=== PATIENT | female | born 1930 | race Caucasian/White ===

== ENCOUNTER 2017-07-30 09:24 | Inpatient (IN) | payer MEDICARE ==
[2017-07-30] MEDS: Furosemide 20 MG Tab PO SCH (15:18)
--- NOTE | 2017-07-30 16:37 | HP ---
ADMISSION DATE: 07/30/2017 REASON FOR VISIT: Right hip fracture, post-surgical repair, rehab. HISTORY OF PRESENT ILLNESS: Rosalia Koo is an 87-year-old, female, daughter in the room, resident of [place], [place], who was a transfer from [facility] in [place]. She sustained a right hip fracture in her home, 07/26/2017, fell in her home. She was transferred from [facility] to [facility]. On 07/27/2017, underwent a right hip nailing for an intertrochanteric fracture. Did well in the interim. Review of her records, discharge summary noted. Hemoglobin today prior to discharge 9.1, one day ago 7.1, two days ago 8.5. Pain only with activity. MEDICATIONS: Please see medication reconciliation list. ALLERGIES: Allergic to penicillin, amitriptyline, Cipro, latex, Lipitor, meclizine, and Zithromax. See attached list. PAST MEDICAL HISTORY: Significant for previous open cholecystectomy, vaginal hysterectomy, and most recent left hip fracture. No other operative procedures, hospitalizations, unusual childhood diseases, major injuries, or fractures. She has ongoing issues of aortic valve with stenosis, surgical intervention under consideration. History of hyperlipidemia, hypothyroidism, mood disorder, and memory issues evolving. SOCIAL HISTORY: 2 years ago at age 84. 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 Never smoked. Nil alcohol consumption. No illicit drug use. REVIEW OF SYSTEMS: Feeling generally well. Pain is problematic. Complicated dizziness secondary to aortic valve stenosis. She sees pretty well. Hearing - she has some difficulty with crowds. Swallowing without difficulty. Teeth intact. Denies chest pain, palpitations, respiratory difficulty, bowel or bladder impairment, blood in stool, blood in urine, or black stools. No skin rash. PHYSICAL EXAMINATION: VITAL SIGNS: Only vital signs available is height 1.6 meters stated, weight 95 kg, bed scale. GENERAL: Elderly, cooperative, conversant. Speech is fluent. HEENT: Funduscopic benign. Bright TMs. Clear nasal discharge. Mouth and oropharynx are clear. Tongue midline. Good gag reflex. NECK: Benign. Thyroid small. No adenopathy. CHEST: Clear in all lung steele. HEART: Regular without ectopy. Loud 3-4/6 systolic ejection murmur, aortic root. ABDOMEN: Right upper quadrant cholecystectomy scar is well healed, doing well. No hepatosplenomegaly. : Deferred. RECTAL: Deferred. EXTREMITIES: Well perfused. Mild venous stasis changes. Surgical site, right hip dressed. ASSESSMENT: Postop care, right hip pinning, intertrochanteric fracture. SECONDARY DIAGNOSES: Please see above. PLAN: Rehab in place, medications, care and treatment, PT, OT. Pain control. Cooperative care and well-being. We will recheck hemoglobin in a while, patient in agreement, daughter in agreement. /[id number] /BELLE CC: Arya Barrera MD
[2017-07-30] MEDS: Acetaminophen/HYDROcodone 325-5 MG Tab PO PRN (17:03)
[2017-07-30] MEDS: Fluticasone Propionate Nasal Spray 16 GM Bottle NAS SCH (21:26)
[2017-07-30] MEDS: Donepezil 5 MG Tab PO SCH (21:26)
[2017-07-30] MEDS: Melatonin 3 MG Tab PO SCH (21:27)
[2017-07-30] MEDS: Gabapentin 300 MG Cap PO SCH (21:27)
[2017-07-30] MEDS: Simvastatin 10 MG Tab PO SCH (21:28)
[2017-07-30] MEDS: Sertraline 50 MG Tab PO SCH (21:29)
[2017-07-31] MEDS: Acetaminophen/HYDROcodone 325-5 MG Tab PO PRN ×4 (00:38→20:21)
[2017-07-31] MEDS: Levothyroxine 112 MCG Tab PO SCH (06:20)
[2017-07-31] MEDS: Furosemide 20 MG Tab PO SCH ×2 (08:46→14:17)
[2017-07-31] MEDS: Fluticasone Propionate Nasal Spray 16 GM Bottle NAS SCH ×2 (08:51→20:18)
[2017-07-31] MEDS: Aspirin 81 MG Tab.EC PO SCH (08:52)
[2017-07-31] MEDS: Enoxaparin 40 MG/0.4 ML Syringe SUBCUT SCH (09:00)
[2017-07-31] MEDS: amLODIPine 5 MG Tab PO SCH (09:01)
[2017-07-31] MEDS: Gabapentin 300 MG Cap PO SCH ×2 (09:01→20:19)
[2017-07-31] MEDS: Lisinopril 20 MG Tab PO SCH (09:02)
[2017-07-31] MEDS: Cholecalciferol (Vitamin D3) 1,000 Unit Tab PO SCH (09:02)
[2017-07-31] MEDS: Multivitamins, Therapeutic with Minerals Tab PO SCH (09:04)
[2017-07-31] MEDS: Acetaminophen 325 MG Tab PO PRN ×2 (11:20→18:34)
[2017-07-31] MEDS: Donepezil 5 MG Tab PO SCH (20:18)
[2017-07-31] MEDS: Melatonin 3 MG Tab PO SCH (20:18)
[2017-07-31] MEDS: Sertraline 50 MG Tab PO SCH (20:20)
[2017-07-31] MEDS: Simvastatin 10 MG Tab PO SCH (20:20)
[2017-08-01] MEDS: Acetaminophen 325 MG Tab PO PRN ×3 (01:01→13:58)
[2017-08-01] MEDS: Levothyroxine 112 MCG Tab PO SCH (06:18)
[2017-08-01] MEDS: Acetaminophen/HYDROcodone 325-5 MG Tab PO PRN (06:18)
[2017-08-01] MEDS: Furosemide 20 MG Tab PO SCH ×2 (07:41→14:06)
[2017-08-01] MEDS: Fluticasone Propionate Nasal Spray 16 GM Bottle NAS SCH ×2 (08:43→20:27)
[2017-08-01] MEDS: Gabapentin 300 MG Cap PO SCH ×2 (08:44→20:28)
[2017-08-01] MEDS: Enoxaparin 40 MG/0.4 ML Syringe SUBCUT SCH (08:44)
[2017-08-01] MEDS: amLODIPine 5 MG Tab PO SCH (08:46)
[2017-08-01] MEDS: Lisinopril 20 MG Tab PO SCH (08:47)
[2017-08-01] MEDS: Cholecalciferol (Vitamin D3) 1,000 Unit Tab PO SCH (08:48)
[2017-08-01] MEDS: Multivitamins, Therapeutic with Minerals Tab PO SCH (08:48)
[2017-08-01] MEDS: Aspirin 81 MG Tab.EC PO SCH (10:56)
--- NOTE | 2017-08-01 12:02 | PN ---
DATE SEEN: 08/01/2017 SUBJECTIVE: Rosalia Koo is an 87-year-old female, in today for rehab. Sustained a right hip fracture on 07/29. Long-term rehab in place. Living situations comfortable with daughter. Pain does not appear to be controlled on her present dose of analgesics, [place] 325/5 one q.4 hours. OBJECTIVE: VITAL SIGNS: Stable. 36.6, 99/56, 16 is the respiration, 97% on 1 L. GENERAL: Soft spoken. Comfortable. NECK: Benign. Thyroid small. CHEST: Clear in all lung steele. HEART: Regular without ectopy or murmur. ABDOMEN: Benign. MUSCULOSKELETAL: Right hip surgical wound inspected without complaint. [place] in good position. Rehab care, status post right hip fracture. PLAN: Medications, care and treatment appropriate, continue present surveillance and care, hemoglobin will be obtained. /[id number] [id number] RUBY/BELLE
[2017-08-01] MEDS: Acetaminophen/HYDROcodone 325-10 MG Tab PO PRN ×3 (12:29→22:13)
[2017-08-01] MEDS: Simvastatin 10 MG Tab PO SCH (20:27)
[2017-08-01] MEDS: Sertraline 50 MG Tab PO SCH (20:27)
[2017-08-01] MEDS: Melatonin 3 MG Tab PO SCH (20:28)
[2017-08-01] MEDS: Donepezil 5 MG Tab PO SCH (20:28)
[2017-08-01] MEDS ORDERED: Aluminum Hydroxide/Magnesium Hydroxide Susp 30 ML Cup PO PRN (21:33)
[2017-08-02] MEDS: Levothyroxine 112 MCG Tab PO SCH (06:25)
[2017-08-02] MEDS: Acetaminophen/HYDROcodone 325-10 MG Tab PO PRN ×4 (08:08→21:26)
[2017-08-02] MEDS: Furosemide 20 MG Tab PO SCH ×2 (08:09→13:52)
[2017-08-02] MEDS: Fluticasone Propionate Nasal Spray 16 GM Bottle NAS SCH ×2 (08:09→20:37)
[2017-08-02] MEDS: Aspirin 81 MG Tab.EC PO SCH (08:10)
[2017-08-02] MEDS: Gabapentin 300 MG Cap PO SCH ×2 (08:10→20:40)
[2017-08-02] MEDS: Enoxaparin 40 MG/0.4 ML Syringe SUBCUT SCH (08:10)
[2017-08-02] MEDS: amLODIPine 5 MG Tab PO SCH (08:11)
[2017-08-02] MEDS: Cholecalciferol (Vitamin D3) 1,000 Unit Tab PO SCH (08:11)
[2017-08-02] MEDS: Lisinopril 20 MG Tab PO SCH (08:11)
[2017-08-02] MEDS: Multivitamins, Therapeutic with Minerals Tab PO SCH (08:11)
--- NOTE | 2017-08-02 11:56 | PN ---
DATE SEEN: 08/02/2017 SUBJECTIVE: Rosalia Koo is an 87-year-old female, , lives in [place], [place]. Lives with her daughter. Had a recent right hip fracture on 07/29, admitted to swing bed. Pain is controlled with [place], PT to be actively involved today. PHYSICAL EXAMINATION: VITAL SIGNS: 36.6, 78, 113/66, 18, and 95. GENERAL: In good spirits. NECK: Benign. Thyroid small. CHEST: Clear. HEART: Regular. ABDOMEN: Benign. EXTREMITIES: Surgical wound intact. ASSESSMENT: Right hip fracture with surgical repair. PLAN: Medications, care, and treatment appropriate. We will continue present care and therapy. /[id number] RUBY/BELLE
[2017-08-02] MEDS: Donepezil 5 MG Tab PO SCH (20:39)
[2017-08-02] MEDS: Melatonin 3 MG Tab PO SCH (20:40)
[2017-08-02] MEDS: Sertraline 50 MG Tab PO SCH (20:41)
[2017-08-02] MEDS: Simvastatin 10 MG Tab PO SCH (20:41)
[2017-08-03] MEDS: Acetaminophen/HYDROcodone 325-10 MG Tab PO PRN ×3 (01:37→22:56)
--- NOTE | 2017-08-03 09:32 | PN ---
DATE SEEN: 07/31/2017 SUBJECTIVE: Rosalia Koo is an 87-year-old female, seen today for review. She had sustained a right hip fracture and was admitted [facility] for rehab. Hemoglobin the day before discharge was 9.2. MEDICATIONS: Reviewed and appropriate. OBJECTIVE: VITAL SIGNS: Temperature 36.7, pulse 77, blood pressure 115/72, respirations 16, O2 saturations 99% on 2 L. GENERAL: Appears comfortable. Soft spoken. NECK: Benign. CHEST: Clear. HEART: Regular. ABDOMEN: Benign. Fracture site intact and wound healing well. ASSESSMENT: Rehab post right hip fracture. PLAN: Medications, care, and treatment appropriate. Analgesics on board. PT involved. /[id number] [id number] RUBY/BELLE
--- NOTE | 2017-08-03 15:40 | PN ---
DATE SEEN: 08/03/2017 SUBJECTIVE: Rosalia Koo is an 87-year-old female, in swing bed. She had a fracture of her right hip. Doing well. Hemoglobin 9.2, recheck 9.8. Pain control better with hydrocodone at 4 hour intervals. OBJECTIVE: CHEST: Clear. HEART: Regular. ABDOMEN: Benign. Wound looks good. ASSESSMENT: Postoperative care, right hip fracture, rehab. PLAN: Medications, care, and treatment appropriate, proceed accordingly. /[id number] [id number] /BELLE
[2017-08-03] MEDS: Levothyroxine 112 MCG Tab PO SCH (18:54)
[2017-08-03] MEDS: Furosemide 20 MG Tab PO SCH (18:54)
[2017-08-03] MEDS: Fluticasone Propionate Nasal Spray 16 GM Bottle NAS SCH ×2 (18:55→20:19)
[2017-08-03] MEDS: Gabapentin 300 MG Cap PO SCH ×2 (18:56→20:18)
[2017-08-03] MEDS: Enoxaparin 40 MG/0.4 ML Syringe SUBCUT SCH (18:56)
[2017-08-03] MEDS: amLODIPine 5 MG Tab PO SCH (18:56)
[2017-08-03] MEDS: Aspirin 81 MG Tab.EC PO SCH (18:56)
[2017-08-03] MEDS: Multivitamins, Therapeutic with Minerals Tab PO SCH (18:57)
[2017-08-03] MEDS: Cholecalciferol (Vitamin D3) 1,000 Unit Tab PO SCH (18:57)
[2017-08-03] MEDS: Lisinopril 20 MG Tab PO SCH (18:57)
[2017-08-03] MEDS: Simvastatin 10 MG Tab PO SCH (20:18)
[2017-08-03] MEDS: Donepezil 5 MG Tab PO SCH (20:18)
[2017-08-03] MEDS: Melatonin 3 MG Tab PO SCH (20:18)
[2017-08-03] MEDS: Sertraline 50 MG Tab PO SCH (20:18)
[2017-08-04] MEDS: Levothyroxine 112 MCG Tab PO SCH (06:02)
[2017-08-04] MEDS: Acetaminophen/HYDROcodone 325-10 MG Tab PO PRN ×3 (08:10→19:34)
[2017-08-04] MEDS: Fluticasone Propionate Nasal Spray 16 GM Bottle NAS SCH ×2 (08:14→20:31)
[2017-08-04] MEDS: Furosemide 20 MG Tab PO SCH ×2 (08:14→13:48)
[2017-08-04] MEDS: Aspirin 81 MG Tab.EC PO SCH (08:15)
[2017-08-04] MEDS: Gabapentin 300 MG Cap PO SCH ×2 (08:15→20:33)
[2017-08-04] MEDS: Enoxaparin 40 MG/0.4 ML Syringe SUBCUT SCH (08:15)
[2017-08-04] MEDS: Lisinopril 20 MG Tab PO SCH (08:15)
[2017-08-04] MEDS: amLODIPine 5 MG Tab PO SCH (08:15)
[2017-08-04] MEDS: Cholecalciferol (Vitamin D3) 1,000 Unit Tab PO SCH (08:16)
[2017-08-04] MEDS: Multivitamins, Therapeutic with Minerals Tab PO SCH (08:16)
--- NOTE | 2017-08-04 16:05 | PN ---
DATE SEEN: 08/04/2017 SUBJECTIVE: Rosalia Koo is an 87-year-old female seen today for review. She had a right hip fracture, 07/29/2017. Hemoglobin stable at 9.2 and discharge 9.8. Analgesics working with good success. OBJECTIVE: VITAL SIGNS: Stable. CHEST: Clear. HEART: Regular. ABDOMEN: Benign. MUSCULOSKELETAL: Right hip surgical wound intact. ASSESSMENT: Rehab, hip fracture. PLAN: Medications, care, and treatment appropriate, analgesics on board, should do well. PT ongoing. /[id number] [id number] RUBY/BELLE
[2017-08-04] MEDS: Sertraline 50 MG Tab PO SCH (20:33)
[2017-08-04] MEDS: Simvastatin 10 MG Tab PO SCH (20:33)
[2017-08-04] MEDS: Melatonin 3 MG Tab PO SCH (20:33)
[2017-08-04] MEDS: Donepezil 5 MG Tab PO SCH (20:33)
[2017-08-05] MEDS: Levothyroxine 112 MCG Tab PO SCH (05:40)
[2017-08-05] MEDS: Acetaminophen/HYDROcodone 325-10 MG Tab PO PRN ×2 (08:11→14:13)
[2017-08-05] MEDS: Furosemide 20 MG Tab PO SCH ×2 (08:14→13:02)
[2017-08-05] MEDS: Fluticasone Propionate Nasal Spray 16 GM Bottle NAS SCH ×2 (08:14→20:06)
[2017-08-05] MEDS: Aspirin 81 MG Tab.EC PO SCH (08:14)
[2017-08-05] MEDS: amLODIPine 5 MG Tab PO SCH (08:15)
[2017-08-05] MEDS: Gabapentin 300 MG Cap PO SCH ×2 (08:15→20:07)
[2017-08-05] MEDS: Enoxaparin 40 MG/0.4 ML Syringe SUBCUT SCH (08:15)
[2017-08-05] MEDS: Lisinopril 20 MG Tab PO SCH (08:15)
[2017-08-05] MEDS: Cholecalciferol (Vitamin D3) 1,000 Unit Tab PO SCH (08:16)
[2017-08-05] MEDS: Multivitamins, Therapeutic with Minerals Tab PO SCH (08:16)
[2017-08-05] MEDS: Acetaminophen 325 MG Tab PO PRN (10:44)
[2017-08-05] MEDS: Hydrocortisone 2.5% Crm 30 GM Tube TOP SCH ×2 (10:46→20:06)
--- NOTE | 2017-08-05 10:59 | PN ---
DATE SEEN: 08/05/2017 SUBJECTIVE: Rosalia Koo is an 87-year-old female. Right hip fracture, surgical date 07/29. Hemoglobin stable at 9.2 and 9.8. Pain appears to be controlled. Therapy is going slowly. Has a rash on her upper back. OBJECTIVE: SKIN: Revealed a contact dermatitis on back. CHEST: Clear. HEART: Regular. ABDOMEN: Benign. MUSCULOSKELETAL: Surgical wound, right hip intact. ASSESSMENT: 1. Hip fracture with surgical intervention, rehab in place. 2. Contact dermatitis. PLAN: Hydrocortisone cream b.i.d. t.i.d. Complementary care and well being. Should do well. /[id number] 1040 RUBY/BELLE
[2017-08-05] MEDS: Donepezil 5 MG Tab PO SCH (20:06)
[2017-08-05] MEDS: Melatonin 3 MG Tab PO SCH (20:07)
[2017-08-05] MEDS: Simvastatin 10 MG Tab PO SCH (20:08)
[2017-08-05] MEDS: Sertraline 50 MG Tab PO SCH (20:08)
[2017-08-06] MEDS: Levothyroxine 112 MCG Tab PO SCH (05:52)
[2017-08-06] MEDS: Furosemide 20 MG Tab PO SCH ×2 (08:57→13:33)
[2017-08-06] MEDS: Aspirin 81 MG Tab.EC PO SCH (08:58)
[2017-08-06] MEDS: Fluticasone Propionate Nasal Spray 16 GM Bottle NAS SCH ×2 (08:58→20:05)
[2017-08-06] MEDS: Gabapentin 300 MG Cap PO SCH ×2 (08:59→20:07)
[2017-08-06] MEDS: Enoxaparin 40 MG/0.4 ML Syringe SUBCUT SCH (08:59)
[2017-08-06] MEDS: amLODIPine 5 MG Tab PO SCH (09:00)
[2017-08-06] MEDS: Multivitamins, Therapeutic with Minerals Tab PO SCH (09:01)
[2017-08-06] MEDS: Lisinopril 20 MG Tab PO SCH (09:01)
[2017-08-06] MEDS: Cholecalciferol (Vitamin D3) 1,000 Unit Tab PO SCH (09:01)
[2017-08-06] MEDS: Hydrocortisone 2.5% Crm 30 GM Tube TOP SCH ×2 (09:02→20:06)
[2017-08-06] MEDS: Acetaminophen 325 MG Tab PO PRN (09:55)
[2017-08-06] MEDS: Acetaminophen/HYDROcodone 325-10 MG Tab PO PRN ×2 (15:37→19:52)
[2017-08-06] MEDS: Donepezil 5 MG Tab PO SCH (20:04)
[2017-08-06] MEDS: Melatonin 3 MG Tab PO SCH (20:07)
[2017-08-06] MEDS: Simvastatin 10 MG Tab PO SCH (20:08)
[2017-08-06] MEDS: Sertraline 50 MG Tab PO SCH (20:08)
[2017-08-07] MEDS: Acetaminophen/HYDROcodone 325-10 MG Tab PO PRN ×6 (01:35→21:56)
[2017-08-07] MEDS: Levothyroxine 112 MCG Tab PO SCH (05:39)
[2017-08-07] MEDS: Fluticasone Propionate Nasal Spray 16 GM Bottle NAS SCH ×2 (08:39→21:58)
[2017-08-07] MEDS: Gabapentin 300 MG Cap PO SCH ×2 (08:40→22:00)
[2017-08-07] MEDS: Multivitamins, Therapeutic with Minerals Tab PO SCH (08:40)
[2017-08-07] MEDS: Lisinopril 20 MG Tab PO SCH (08:40)
[2017-08-07] MEDS: Cholecalciferol (Vitamin D3) 1,000 Unit Tab PO SCH (08:40)
[2017-08-07] MEDS: Aspirin 81 MG Tab.EC PO SCH (08:40)
[2017-08-07] MEDS: amLODIPine 5 MG Tab PO SCH (08:41)
[2017-08-07] MEDS: Furosemide 20 MG Tab PO SCH ×2 (08:41→13:28)
[2017-08-07] MEDS: Enoxaparin 40 MG/0.4 ML Syringe SUBCUT SCH (08:41)
[2017-08-07] MEDS: Hydrocortisone 2.5% Crm 30 GM Tube TOP SCH ×2 (08:41→21:53)
[2017-08-07] MEDS: Acetaminophen 325 MG Tab PO PRN (20:00)
[2017-08-07] MEDS: Donepezil 5 MG Tab PO SCH (21:58)
[2017-08-07] MEDS: Melatonin 3 MG Tab PO SCH (21:59)
[2017-08-07] MEDS: Simvastatin 10 MG Tab PO SCH (22:01)
[2017-08-07] MEDS: Sertraline 50 MG Tab PO SCH (22:03)
[2017-08-08] MEDS: Acetaminophen/HYDROcodone 325-10 MG Tab PO PRN ×3 (01:51→18:19)
[2017-08-08] MEDS: Levothyroxine 112 MCG Tab PO SCH (06:14)
[2017-08-08] MEDS: Fluticasone Propionate Nasal Spray 16 GM Bottle NAS SCH ×2 (08:50→20:46)
[2017-08-08] MEDS: Aspirin 81 MG Tab.EC PO SCH (08:50)
[2017-08-08] MEDS: Furosemide 20 MG Tab PO SCH ×2 (08:50→14:10)
[2017-08-08] MEDS: Hydrocortisone 2.5% Crm 30 GM Tube TOP SCH ×2 (08:50→20:47)
[2017-08-08] MEDS: Enoxaparin 40 MG/0.4 ML Syringe SUBCUT SCH (08:51)
[2017-08-08] MEDS: Gabapentin 300 MG Cap PO SCH ×2 (08:51→20:48)
[2017-08-08] MEDS: Cholecalciferol (Vitamin D3) 1,000 Unit Tab PO SCH (08:52)
[2017-08-08] MEDS: Multivitamins, Therapeutic with Minerals Tab PO SCH (08:52)
[2017-08-08] MEDS: amLODIPine 5 MG Tab PO SCH (14:09)
[2017-08-08] MEDS: Lisinopril 20 MG Tab PO SCH (14:10)
[2017-08-08] MEDS: Donepezil 5 MG Tab PO SCH (20:46)
[2017-08-08] MEDS: Melatonin 3 MG Tab PO SCH (20:47)
[2017-08-08] MEDS: Simvastatin 10 MG Tab PO SCH (20:49)
[2017-08-08] MEDS: Sertraline 50 MG Tab PO SCH (20:49)
[2017-08-09] MEDS: Acetaminophen/HYDROcodone 325-10 MG Tab PO PRN ×5 (00:26→20:28)
[2017-08-09] MEDS: Levothyroxine 112 MCG Tab PO SCH (05:40)
[2017-08-09] MEDS: Gabapentin 300 MG Cap PO SCH ×2 (09:08→20:30)
[2017-08-09] MEDS: Furosemide 20 MG Tab PO SCH ×2 (09:08→14:43)
[2017-08-09] MEDS: Cholecalciferol (Vitamin D3) 1,000 Unit Tab PO SCH (09:08)
[2017-08-09] MEDS: Fluticasone Propionate Nasal Spray 16 GM Bottle NAS SCH ×2 (09:08→20:26)
[2017-08-09] MEDS: Aspirin 81 MG Tab.EC PO SCH (09:09)
[2017-08-09] MEDS: Enoxaparin 40 MG/0.4 ML Syringe SUBCUT SCH (09:09)
[2017-08-09] MEDS: Hydrocortisone 2.5% Crm 30 GM Tube TOP SCH ×2 (09:09→20:27)
[2017-08-09] MEDS: amLODIPine 5 MG Tab PO SCH (09:10)
[2017-08-09] MEDS: Acetaminophen 325 MG Tab PO PRN (09:10)
[2017-08-09] MEDS: Lisinopril 20 MG Tab PO SCH (09:10)
[2017-08-09] MEDS: Multivitamins, Therapeutic with Minerals Tab PO SCH (09:11)
[2017-08-09] MEDS: Sertraline 50 MG Tab PO SCH (20:29)
[2017-08-09] MEDS: Donepezil 5 MG Tab PO SCH (20:30)
[2017-08-09] MEDS: Melatonin 3 MG Tab PO SCH (20:30)
[2017-08-09] MEDS: Simvastatin 10 MG Tab PO SCH (20:32)
[2017-08-10] MEDS: Acetaminophen/HYDROcodone 325-10 MG Tab PO PRN ×5 (01:38→20:49)
[2017-08-10] MEDS: Levothyroxine 112 MCG Tab PO SCH (05:28)
[2017-08-10] MEDS: Fluticasone Propionate Nasal Spray 16 GM Bottle NAS SCH ×2 (09:25→20:40)
[2017-08-10] MEDS: Furosemide 20 MG Tab PO SCH ×2 (09:25→13:40)
[2017-08-10] MEDS: Aspirin 81 MG Tab.EC PO SCH (09:26)
[2017-08-10] MEDS: Hydrocortisone 2.5% Crm 30 GM Tube TOP SCH ×2 (09:26→20:46)
[2017-08-10] MEDS: Gabapentin 300 MG Cap PO SCH ×2 (09:27→20:47)
[2017-08-10] MEDS: Enoxaparin 40 MG/0.4 ML Syringe SUBCUT SCH (09:27)
[2017-08-10] MEDS: amLODIPine 5 MG Tab PO SCH (09:27)
[2017-08-10] MEDS: Cholecalciferol (Vitamin D3) 1,000 Unit Tab PO SCH (09:28)
[2017-08-10] MEDS: Lisinopril 20 MG Tab PO SCH (09:28)
[2017-08-10] MEDS: Multivitamins, Therapeutic with Minerals Tab PO SCH (09:28)
[2017-08-10] MEDS: Donepezil 5 MG Tab PO SCH (20:39)
[2017-08-10] MEDS: Melatonin 3 MG Tab PO SCH (20:47)
[2017-08-10] MEDS: Sertraline 50 MG Tab PO SCH (20:48)
[2017-08-10] MEDS: Simvastatin 10 MG Tab PO SCH (20:48)
[2017-08-11] MEDS: Acetaminophen/HYDROcodone 325-10 MG Tab PO PRN ×4 (01:47→21:15)
[2017-08-11] MEDS: Levothyroxine 112 MCG Tab PO SCH (05:56)
[2017-08-11] MEDS: amLODIPine 5 MG Tab PO SCH (09:00)
[2017-08-11] MEDS: Lisinopril 20 MG Tab PO SCH (09:00)
[2017-08-11] MEDS: Hydrocortisone 2.5% Crm 30 GM Tube TOP SCH (09:59)
[2017-08-11] MEDS: Furosemide 20 MG Tab PO SCH ×2 (09:59→14:03)
[2017-08-11] MEDS: Aspirin 81 MG Tab.EC PO SCH (09:59)
[2017-08-11] MEDS: Fluticasone Propionate Nasal Spray 16 GM Bottle NAS SCH ×2 (09:59→21:16)
[2017-08-11] MEDS: Enoxaparin 40 MG/0.4 ML Syringe SUBCUT SCH (10:00)
[2017-08-11] MEDS: Gabapentin 300 MG Cap PO SCH ×2 (10:00→21:15)
[2017-08-11] MEDS: Cholecalciferol (Vitamin D3) 1,000 Unit Tab PO SCH (10:00)
[2017-08-11] MEDS: Multivitamins, Therapeutic with Minerals Tab PO SCH (10:00)
[2017-08-11] MEDS: Sertraline 50 MG Tab PO SCH (21:15)
[2017-08-11] MEDS: Donepezil 5 MG Tab PO SCH (21:15)
[2017-08-11] MEDS: Melatonin 3 MG Tab PO SCH (21:15)
[2017-08-11] MEDS: Simvastatin 10 MG Tab PO SCH (21:15)
[2017-08-12] MEDS: Levothyroxine 112 MCG Tab PO SCH (05:33)
[2017-08-12] MEDS: Fluticasone Propionate Nasal Spray 16 GM Bottle NAS SCH ×2 (08:13→21:25)
[2017-08-12] MEDS: Furosemide 20 MG Tab PO SCH ×2 (08:13→14:34)
[2017-08-12] MEDS: Aspirin 81 MG Tab.EC PO SCH (08:14)
[2017-08-12] MEDS: Enoxaparin 40 MG/0.4 ML Syringe SUBCUT SCH (08:14)
[2017-08-12] MEDS: Gabapentin 300 MG Cap PO SCH ×2 (08:15→21:25)
[2017-08-12] MEDS: Cholecalciferol (Vitamin D3) 1,000 Unit Tab PO SCH (08:15)
[2017-08-12] MEDS: Multivitamins, Therapeutic with Minerals Tab PO SCH (08:16)
[2017-08-12] MEDS: Acetaminophen 325 MG Tab PO PRN ×2 (08:39→21:30)
[2017-08-12] MEDS: amLODIPine 5 MG Tab PO SCH (08:39)
[2017-08-12] MEDS: Acetaminophen/HYDROcodone 325-10 MG Tab PO PRN ×2 (11:35→19:03)
[2017-08-12] MEDS: Donepezil 5 MG Tab PO SCH (21:25)
[2017-08-12] MEDS: Melatonin 3 MG Tab PO SCH (21:25)
[2017-08-12] MEDS: Simvastatin 10 MG Tab PO SCH (21:25)
[2017-08-12] MEDS: Sertraline 50 MG Tab PO SCH (21:25)
[2017-08-13] MEDS: Acetaminophen/HYDROcodone 325-10 MG Tab PO PRN ×3 (03:10→13:56)
[2017-08-13] MEDS: Levothyroxine 112 MCG Tab PO SCH (06:58)
[2017-08-13] MEDS: Fluticasone Propionate Nasal Spray 16 GM Bottle NAS SCH ×2 (09:18→21:07)
[2017-08-13] MEDS: Aspirin 81 MG Tab.EC PO SCH (09:18)
[2017-08-13] MEDS: Enoxaparin 40 MG/0.4 ML Syringe SUBCUT SCH (09:18)
[2017-08-13] MEDS: Furosemide 20 MG Tab PO SCH ×2 (09:18→13:56)
[2017-08-13] MEDS: amLODIPine 5 MG Tab PO SCH (09:19)
[2017-08-13] MEDS: Multivitamins, Therapeutic with Minerals Tab PO SCH (09:19)
[2017-08-13] MEDS: Gabapentin 300 MG Cap PO SCH ×2 (09:19→21:07)
[2017-08-13] MEDS: Cholecalciferol (Vitamin D3) 1,000 Unit Tab PO SCH (09:19)
[2017-08-13] MEDS: Acetaminophen 325 MG Tab PO PRN (16:57)
[2017-08-13] MEDS: Simvastatin 10 MG Tab PO SCH (21:07)
[2017-08-13] MEDS: Donepezil 5 MG Tab PO SCH (21:07)
[2017-08-13] MEDS: Melatonin 3 MG Tab PO SCH (21:07)
[2017-08-13] MEDS: Sertraline 50 MG Tab PO SCH (21:08)
[2017-08-14] MEDS: Acetaminophen/HYDROcodone 325-10 MG Tab PO PRN ×4 (00:29→20:20)
[2017-08-14] MEDS: Levothyroxine 112 MCG Tab PO SCH (06:16)
[2017-08-14] MEDS: Furosemide 20 MG Tab PO SCH ×2 (09:12→12:59)
[2017-08-14] MEDS: Fluticasone Propionate Nasal Spray 16 GM Bottle NAS SCH ×2 (09:12→20:19)
[2017-08-14] MEDS: Enoxaparin 40 MG/0.4 ML Syringe SUBCUT SCH (09:13)
[2017-08-14] MEDS: Cholecalciferol (Vitamin D3) 1,000 Unit Tab PO SCH (09:13)
[2017-08-14] MEDS: amLODIPine 5 MG Tab PO SCH (09:13)
[2017-08-14] MEDS: Aspirin 81 MG Tab.EC PO SCH (09:13)
[2017-08-14] MEDS: Gabapentin 300 MG Cap PO SCH ×2 (09:13→20:19)
[2017-08-14] MEDS: Multivitamins, Therapeutic with Minerals Tab PO SCH (09:13)
[2017-08-14] MEDS: Acetaminophen 325 MG Tab PO PRN (12:56)
[2017-08-14] MEDS: Melatonin 3 MG Tab PO SCH (20:19)
[2017-08-14] MEDS: Donepezil 5 MG Tab PO SCH (20:19)
[2017-08-14] MEDS: Simvastatin 10 MG Tab PO SCH (20:20)
[2017-08-14] MEDS: Sertraline 50 MG Tab PO SCH (20:20)
[2017-08-15] MEDS ORDERED: diphenhydrAMINE 50 MG Cap PO ONE (01:45)
[2017-08-15] MEDS: Levothyroxine 112 MCG Tab PO SCH (06:04)
[2017-08-15] MEDS: Acetaminophen/HYDROcodone 325-10 MG Tab PO PRN ×2 (08:19→13:45)
[2017-08-15] MEDS: Multivitamins, Therapeutic with Minerals Tab PO SCH (08:20)
[2017-08-15] MEDS: Furosemide 20 MG Tab PO SCH ×2 (08:20→13:42)
[2017-08-15] MEDS: Aspirin 81 MG Tab.EC PO SCH (08:21)
[2017-08-15] MEDS: Fluticasone Propionate Nasal Spray 16 GM Bottle NAS SCH ×2 (08:21→20:18)
[2017-08-15] MEDS: Enoxaparin 40 MG/0.4 ML Syringe SUBCUT SCH (08:21)
[2017-08-15] MEDS: amLODIPine 5 MG Tab PO SCH (08:22)
[2017-08-15] MEDS: Gabapentin 300 MG Cap PO SCH ×2 (08:22→20:19)
[2017-08-15] MEDS: Cholecalciferol (Vitamin D3) 1,000 Unit Tab PO SCH (08:23)
[2017-08-15] MEDS: Donepezil 5 MG Tab PO SCH (20:18)
[2017-08-15] MEDS: Melatonin 3 MG Tab PO SCH (20:18)
[2017-08-15] MEDS: Sertraline 50 MG Tab PO SCH (20:19)
[2017-08-15] MEDS: Simvastatin 10 MG Tab PO SCH (20:19)
[2017-08-16] MEDS: Levothyroxine 112 MCG Tab PO SCH (05:51)
[2017-08-16] MEDS: Fluticasone Propionate Nasal Spray 16 GM Bottle NAS SCH ×2 (08:48→20:12)
[2017-08-16] MEDS: Furosemide 20 MG Tab PO SCH ×2 (08:48→13:37)
[2017-08-16] MEDS: Enoxaparin 40 MG/0.4 ML Syringe SUBCUT SCH (08:49)
[2017-08-16] MEDS: Aspirin 81 MG Tab.EC PO SCH (08:49)
[2017-08-16] MEDS: Gabapentin 300 MG Cap PO SCH ×2 (08:50→20:13)
[2017-08-16] MEDS: Cholecalciferol (Vitamin D3) 1,000 Unit Tab PO SCH (08:51)
[2017-08-16] MEDS: Multivitamins, Therapeutic with Minerals Tab PO SCH (08:51)
[2017-08-16] MEDS: amLODIPine 5 MG Tab PO SCH (08:52)
[2017-08-16] MEDS: Acetaminophen/HYDROcodone 325-10 MG Tab PO PRN ×2 (10:11→19:35)
[2017-08-16] MEDS: Donepezil 5 MG Tab PO SCH (20:12)
[2017-08-16] MEDS: Melatonin 3 MG Tab PO SCH (20:13)
[2017-08-16] MEDS: Simvastatin 10 MG Tab PO SCH (20:14)
[2017-08-16] MEDS: Sertraline 50 MG Tab PO SCH (20:14)
[2017-08-17] MEDS: Acetaminophen/HYDROcodone 325-10 MG Tab PO PRN ×4 (01:46→21:05)
[2017-08-17] MEDS: Levothyroxine 112 MCG Tab PO SCH (06:28)
[2017-08-17] MEDS: Enoxaparin 40 MG/0.4 ML Syringe SUBCUT SCH (08:40)
[2017-08-17] MEDS: Fluticasone Propionate Nasal Spray 16 GM Bottle NAS SCH ×2 (08:42→21:03)
[2017-08-17] MEDS: Furosemide 20 MG Tab PO SCH ×2 (08:42→14:21)
[2017-08-17] MEDS: Gabapentin 300 MG Cap PO SCH ×2 (08:43→21:03)
[2017-08-17] MEDS: Aspirin 81 MG Tab.EC PO SCH (08:43)
[2017-08-17] MEDS: Multivitamins, Therapeutic with Minerals Tab PO SCH (08:44)
[2017-08-17] MEDS: Cholecalciferol (Vitamin D3) 1,000 Unit Tab PO SCH (08:44)
[2017-08-17] MEDS: amLODIPine 5 MG Tab PO SCH (08:45)
[2017-08-17] MEDS: Acetaminophen 325 MG Tab PO PRN (15:48)
[2017-08-17] MEDS: Donepezil 5 MG Tab PO SCH (21:03)
[2017-08-17] MEDS: Melatonin 3 MG Tab PO SCH (21:03)
[2017-08-17] MEDS: Simvastatin 10 MG Tab PO SCH (21:04)
[2017-08-17] MEDS: Sertraline 50 MG Tab PO SCH (21:04)
[2017-08-18] MEDS: Acetaminophen/HYDROcodone 325-10 MG Tab PO PRN ×5 (01:41→22:13)
[2017-08-18] MEDS: Levothyroxine 112 MCG Tab PO SCH (05:47)
[2017-08-18] MEDS: Enoxaparin 40 MG/0.4 ML Syringe SUBCUT SCH (08:19)
[2017-08-18] MEDS: Gabapentin 300 MG Cap PO SCH ×2 (08:19→22:10)
[2017-08-18] MEDS: Multivitamins, Therapeutic with Minerals Tab PO SCH (08:19)
[2017-08-18] MEDS: amLODIPine 5 MG Tab PO SCH (08:19)
[2017-08-18] MEDS: Furosemide 20 MG Tab PO SCH ×2 (08:19→13:38)
[2017-08-18] MEDS: Cholecalciferol (Vitamin D3) 1,000 Unit Tab PO SCH (08:19)
[2017-08-18] MEDS: Aspirin 81 MG Tab.EC PO SCH (08:19)
[2017-08-18] MEDS: Acetaminophen 325 MG Tab PO PRN (08:20)
[2017-08-18] MEDS: Fluticasone Propionate Nasal Spray 16 GM Bottle NAS SCH ×2 (08:21→22:10)
[2017-08-18] MEDS: Melatonin 3 MG Tab PO SCH (22:10)
[2017-08-18] MEDS: Donepezil 5 MG Tab PO SCH (22:10)
[2017-08-18] MEDS: Simvastatin 10 MG Tab PO SCH (22:10)
[2017-08-18] MEDS: Sertraline 50 MG Tab PO SCH (22:11)
[2017-08-19] MEDS: Acetaminophen 325 MG Tab PO PRN (01:24)
[2017-08-19] MEDS: Levothyroxine 112 MCG Tab PO SCH (05:54)
[2017-08-19] MEDS: Acetaminophen/HYDROcodone 325-10 MG Tab PO PRN ×3 (05:54→17:13)
[2017-08-19] MEDS: Furosemide 20 MG Tab PO SCH ×2 (08:19→15:02)
[2017-08-19] MEDS: Gabapentin 300 MG Cap PO SCH ×2 (08:20→21:01)
[2017-08-19] MEDS: Fluticasone Propionate Nasal Spray 16 GM Bottle NAS SCH ×2 (08:20→20:59)
[2017-08-19] MEDS: Aspirin 81 MG Tab.EC PO SCH (08:20)
[2017-08-19] MEDS: amLODIPine 5 MG Tab PO SCH (08:20)
[2017-08-19] MEDS: Enoxaparin 40 MG/0.4 ML Syringe SUBCUT SCH (08:20)
[2017-08-19] MEDS: Cholecalciferol (Vitamin D3) 1,000 Unit Tab PO SCH (08:21)
[2017-08-19] MEDS: Multivitamins, Therapeutic with Minerals Tab PO SCH (08:22)
[2017-08-19] MEDS: Simvastatin 10 MG Tab PO SCH (21:01)
[2017-08-19] MEDS: Melatonin 3 MG Tab PO SCH (21:01)
[2017-08-19] MEDS: Donepezil 5 MG Tab PO SCH (21:02)
[2017-08-19] MEDS: Sertraline 50 MG Tab PO SCH (21:02)
[2017-08-20] MEDS: Levothyroxine 112 MCG Tab PO SCH (05:16)
[2017-08-20] MEDS: Fluticasone Propionate Nasal Spray 16 GM Bottle NAS SCH (08:03)
[2017-08-20] MEDS: Furosemide 20 MG Tab PO SCH (08:03)
[2017-08-20] MEDS: Aspirin 81 MG Tab.EC PO SCH (08:03)
[2017-08-20] MEDS: Gabapentin 300 MG Cap PO SCH (08:04)
[2017-08-20] MEDS: Enoxaparin 40 MG/0.4 ML Syringe SUBCUT SCH (08:04)
[2017-08-20] MEDS: Cholecalciferol (Vitamin D3) 1,000 Unit Tab PO SCH (08:05)
[2017-08-20] MEDS: amLODIPine 5 MG Tab PO SCH (08:08)
[2017-08-20 08:09] VITALS: BP 117/69
[2017-08-20] MEDS: Multivitamins, Therapeutic with Minerals Tab PO SCH (08:09)
--- NOTE | 2017-08-20 12:08 | PCM.DCSUM1 ---
Discharge Summary - Hospital Course HPI Initial Comments: 87 y female admitted to swing bed for right hip fracture s/p repair 07/29/2017. required pt/ot for strengthening, rom, and adls. - Discharge Data Discharge Date: 08/20/17 Discharge Disposition: Home, Self-Care 01 Condition: Good - Discharge Diagnosis/Problem(s) (1) S/P right hip fracture SNOMED Code(s): 055802825 ICD Code: Z87.81 - PERSONAL HISTORY OF (HEALED) TRAUMATIC FRACTURE Status: Acute (2) Closed fracture of right hip requiring operative repair SNOMED Code(s): 249907105 ICD Code: S72.001A - FRACTURE OF UNSP PART OF NECK OF RIGHT FEMUR, INIT Status: Acute Qualifiers: Fracture healing: with routine healing - Patient Summary/Data Consults: Consultations 07/30/17 14:06 OT Evaluation and Treatment [CONS] Routine Please Evaluate and Treat. OT Reason for Consult: ADL's This query below is only for informational purposes and is not editable. Admission Diagnosis/Problem: Hip fracture requiring operative repair PT Evaluation and Treatment [CONS] Routine Please Evaluate and Treat. PT Reason for Consult: Strengthening This query below is only for informational purposes and is not editable. Admission Diagnosis/Problem: Hip fracture requiring operative repair - Patient Instructions Diet: Regular Diet as Tolerated Activity: As Tolerated, Cough & Deep Breathe (USE IS) Driving: Do Not Drive Showering/Bathing: May Shower Wound/Incision Care: Keep Operative Site/Wound Site Clean and Dry Notify Provider of: Fever, Increased Pain, Swelling and Redness, Drainage - Discharge Plan Prescriptions/Med Rec: Acetaminophen/HYDROcodone [[place] 325-10 MG] 1 tab PO Q4H PRN #30 tablet PRN Reason: hip pain Home Medications: Home Meds Cholecalciferol (Vitamin D3) [Vitamin D3] 1,000 unit PO DAILY 10/02/14 [History] Furosemide [Lasix] 20 mg PO 08,14 10/02/14 [History] Gabapentin [Neurontin] 300 mg PO BID 10/02/14 [History] Lisinopril 20 mg PO DAILY 10/02/14 [History] Multivitamin with Minerals [Multiple Vitamin] 1 tab PO DAILY 10/02/14 [History] Simvastatin [Zocor] 10 mg PO BEDTIME 10/02/14 [History] Aspirin [Halfprin] 81 mg PO DAILY 07/30/17 [History] Cetirizine [ZyrTEC] 10 mg PO DAILY PRN 07/30/17 [History] Donepezil HCl 5 mg PO BEDTIME 07/30/17 [History] Fluticasone Propionate [Flonase] 1 spray NS BID PRN 07/30/17 [History] Levothyroxine 112 mcg PO DAILY 07/30/17 [History] Melatonin 3 mg PO BEDTIME 07/30/17 [History] [place]-3/DHA/Epa/Fish Oil [[place]-3 Fish Oil 1,000 MG Sfgl] 1,000 mg PO DAILY [History] Sennosides/Docusate Sodium [Senokot-S Tablet] 1 tab PO BID 07/30/17 [History] Sertraline HCl 50 mg PO BEDTIME 07/30/17 [History] amLODIPine [Norvasc] 5 mg PO DAILY 07/30/17 [History] Acetaminophen/HYDROcodone [[place] 325-10 MG] 1 tab PO Q4H PRN #30 tablet [Rx] Enoxaparin [Lovenox] 40 mg SUBCUT DAILY #4 08/20/17 [Rx] Patient Handouts: How and Where to Give Subcutaneous Injections Using a Prefilled Syringe, How and Where to Give Subcutaneous Enoxaparin Injections - Discharge Summary/Plan Comment DC Time >30 min.: Yes Discharge Summary/Plan Comment: PT agrees with baseline functional status and discharge. daughter has been taught how to administer her last couple lovenox injections and medications at discharge have been discussed and all outpt appts have been set up. she will continue to follow with warfarin clinic. pain management on board. all questions answered and both agree to above plan of care. - General Info Date of Service: 08/24/17 Subjective Update: Tells me she is ready to go home and daughter whom she lives with agrees she is back to her baseline regarding mobility, strength and overall wellbeing. pain controlled and was able to demonstrate car transfers. home already set up for safety. - Review of Systems Systems Review Comment: denies pederson/fevers/cp/palpitations/lightheadedness on standing or increased pain/ swelling of the hip, leg. tolerates lovenox injections. - Patient Data Vitals - Most Recent: Last Vital Signs Temp 98.0 F 08/20/17 08:00 Pulse 76 08/20/17 08:00 Resp 16 08/20/17 08:00 BP 117/69 08/20/17 08:08 Pulse Ox 96 08/20/17 08:00 Weight - Most Recent: 89.086 kg Lab Results - Last 24 hrs: Laboratory Tests 08/02/17 Range/Units 06:45 WBC 10.1 (4.5-12.0) X10-3/uL RBC 3.36 (3.23-5.20) x10(6)uL Hgb 9.8 L (11.5-15.5) g/dL Hct 29.7 L (30.0-51.3) % MCV 88.3 (80-96) fL MCH 29.0 (27.7-33.6) pg MCHC 32.9 (32.2-35.4) g/dL RDW 15.5 (11.5-15.5) % Plt Count 247 (125-369) X10(3)uL Med Orders - Current: Current Medications Acetaminophen (Tylenol) 650 mg PO Q4H PRN PRN Reason: Pain Last Admin: 08/19/17 01:24 Dose: 650 mg Hydrocodone Bitart/Acetaminophen ([place] 325-10 Mg) 1 tab PO Q4H PRN PRN Reason: hip pain Last Admin: 08/19/17 17:13 Dose: 1 tab Al Hydroxide/Mg Hydroxide (Mag-Al Susp) 30 ml PO Q2H PRN PRN Reason: Heartburn Last Admin: 08/01/17 22:13 Dose: 30 ml Amlodipine Besylate (Norvasc) 5 mg PO DAILY [facility] Last Admin: 08/20/17 08:08 Dose: 5 mg Aspirin (Halfprin) 81 mg PO DAILY [facility] Last Admin: 08/20/17 08:03 Dose: 81 mg Cholecalciferol (Vitamin D3) 1,000 units PO DAILY [facility] Last Admin: 08/20/17 08:05 Dose: 1,000 units Donepezil HCl (Aricept) 5 mg PO BEDTIME [facility] Last Admin: 08/19/17 21:02 Dose: 5 mg Enoxaparin Sodium (Lovenox) 40 mg SUBCUT DAILY [facility] Stop: 08/23/17 09:01 Last Admin: 08/20/17 08:04 Dose: 40 mg Fluticasone Propionate (Flonase) 0 gm ANJELICA BID [facility] Stop: 08/20/17 21:01 Last Admin: 08/20/17 08:03 Dose: 2 spray Furosemide (Lasix) 20 mg PO 08,14 [facility] Last Admin: 08/20/17 08:03 Dose: 20 mg Gabapentin (Neurontin) 300 mg PO BID [facility] Last Admin: 08/20/17 08:04 Dose: 300 mg Levothyroxine Sodium (Levothyroxine) 112 mcg PO DAILY@0600 [facility] Last Admin: 08/20/17 05:16 Dose: 112 mcg Melatonin (Melatonin) 3 mg PO BEDTIME [facility] Last Admin: 08/19/17 21:01 Dose: 3 mg Multivitamins/Minerals (Vitamins And Minerals) 1 tab PO DAILY [facility] Last Admin: 08/20/17 08:09 Dose: 1 tab Senna/Docusate Sodium (Senna Plus) 1 tab PO BID [facility] Last Admin: 08/20/17 08:04 Dose: 1 tab Sertraline HCl (Zoloft) 50 mg PO BEDTIME [facility] Last Admin: 08/19/17 21:02 Dose: 50 mg Simvastatin (Zocor) 10 mg PO BEDTIME [facility] Last Admin: 08/19/17 21:01 Dose: 10 mg Discontinued Medications Hydrocodone Bitart/Acetaminophen ([place] 325-5 Mg) 1 tab PO Q6H PRN PRN Reason: Pain Last Admin: 08/01/17 06:18 Dose: 1 tab Hydrocortisone (Hydrocortisone 2.5% Crm) 0 gm TOP BID [facility] Last Admin: 08/11/17 09:59 Dose: 1 applic Lisinopril (Prinivil) 20 mg PO DAILY [facility] Last Admin: 08/11/17 09:00 Dose: Not Given - Exam General: Reports: Alert, Oriented, No Acute Distress Lungs: Reports: Clear to Auscultation, Normal Respiratory Effort Cardiovascular: Reports: Regular Rate, Irregular Rhythm, Murmurs GI/Abdominal Exam: Normal Bowel Sounds, Soft, Non-Tender Back Exam: Reports: Normal Inspection Extremities: Non-Tender, Pedal Edema. No: Leg Pain, Increased Warmth Skin: Reports: Warm Wound/Incisions: Reports: Healing Well Neurological: Reports: No New Focal Deficit Psy/Mental Status: Reports: Normal Affect, Normal Mood *Q Meaningful Use (DIS) - VTE *Q VTE Criteria *Q: - Stroke *Q Stroke Criteria *Q: - AMI *Q AMI Criteria *Q:
[2017-08-20] MEDS: Acetaminophen/HYDROcodone 325-10 MG Tab PO PRN (12:52)
== END 2017-08-20 12:55 | disposition home or self-care (01) | DRG 561 ==
LOC: FB.MS 12:45
PROVIDERS: ADMIT Family Medicine; ATTEND Family Medicine
DX: S72.141D Displaced intertrochanteric fracture of right femur, subsequent encounter for closed fracture with routine healing (principal); Z98.890 Other specified postprocedural states; E78.5 Hyperlipidemia, unspecified; E03.9 Hypothyroidism, unspecified; F39 Unspecified mood [affective] disorder; L25.9 Unspecified contact dermatitis, unspecified cause; I35.0 Nonrheumatic aortic (valve) stenosis; Z88.1 Allergy status to other antibiotic agents; Z91.040 Latex allergy status; Z88.0 Allergy status to penicillin; Z88.8 Allergy status to other drugs, medicaments and biological substances; Z79.82 Long term (current) use of aspirin
CPT/HCPCS: 36415; 85027; 97110-GO; 97110-GP; 97116-GP; 97162-GP; 97166-GO; 97530-GO; 97530-GO-KX; 97530-GP; 97535-GO; A9270; A9270-GY; J1650

== ENCOUNTER 2017-08-21 10:19 | Emergency (ER) | payer MEDICARE ==
--- NOTE | 2017-08-21 12:03 | EDM.PDOC ---
ED HPI GENERAL MEDICAL PROBLEM - General Chief Complaint: Lower Extremity Injury/Pain Time Seen by Provider: 08/21/17 10:30 Source of Information: Reports: Patient, Family (PV) History Limitations: Reports: Physical Impairment - History of Present Illness INITIAL COMMENTS - FREE TEXT/NARRATIVE: 87 y.o w f s/p right hip replacement, just d/c'd from the hospital, fell this am onto her right hip and came with her daughter to the ed by PC for evaluation. Pt is in her usual state of health but has a mild discomfort at her right lat hip. No N/V/D or dizziness or any other acute medical issues. Pt is on a scheduled medication regiment, using Vicodin. BP 114/96 pulse 80 Temp 37.a RR 18 Pulse ox 97% on RA Onset Date: 08/21/17 Onset Time: 09:00 Duration: Hour(s): Location: Reports: Lower Extremity, Right Quality: Reports: Ache, Dull Improves with: Reports: Rest Worsens with: Reports: Movement right hip Pain Score (Numeric/FACES): 4 - Related Data Allergies Allergy/AdvReac Type Severity Reaction Status Date / Time amitriptyline Allergy Cannot Verified 08/21/17 11:29 Remember atorvastatin [From Lipitor] Allergy Numbness Verified 08/21/17 11:29 azithromycin [From Zithromax] Allergy Cannot Verified 08/21/17 11:29 Remember ciprofloxacin [From Cipro] Allergy Nausea Verified 08/21/17 11:29 latex Allergy Rash Verified 08/21/17 11:29 meclizine Allergy Dizziness Verified 08/21/17 11:29 Penicillins Allergy Hives Verified 08/21/17 11:29 Home Meds: Home Meds Cholecalciferol (Vitamin D3) [Vitamin D3] 1,000 unit PO DAILY 10/02/14 [History] Furosemide [Lasix] 20 mg PO 08,14 10/02/14 [History] Gabapentin [Neurontin] 300 mg PO BID 10/02/14 [History] Lisinopril 20 mg PO DAILY 10/02/14 [History] Multivitamin with Minerals [Multiple Vitamin] 1 tab PO DAILY 10/02/14 [History] Simvastatin [Zocor] 10 mg PO BEDTIME 10/02/14 [History] Aspirin [Halfprin] 81 mg PO DAILY 07/30/17 [History] Cetirizine [ZyrTEC] 10 mg PO DAILY PRN 07/30/17 [History] Donepezil HCl 5 mg PO BEDTIME 07/30/17 [History] Fluticasone Propionate [Flonase] 1 spray NS BID PRN 07/30/17 [History] Levothyroxine 112 mcg PO DAILY 07/30/17 [History] Melatonin 3 mg PO BEDTIME 07/30/17 [History] [place]-3/DHA/Epa/Fish Oil [[place]-3 Fish Oil 1,000 MG Sfgl] 1,000 mg PO DAILY [History] Sennosides/Docusate Sodium [Senokot-S Tablet] 1 tab PO BID 07/30/17 [History] Sertraline HCl 50 mg PO BEDTIME 07/30/17 [History] amLODIPine [Norvasc] 5 mg PO DAILY 07/30/17 [History] Acetaminophen/HYDROcodone [[place] 325-10 MG] 1 tab PO Q4H PRN #30 tablet [Rx] Enoxaparin [Lovenox] 40 mg SUBCUT DAILY #4 08/20/17 [Rx] Past Medical History HEENT History: Reports: Hard of Hearing, Impaired Vision Cardiovascular History: Reports: Heart Failure, Heart Murmur, High Cholesterol, Hypertension, Other (See Below) Other Cardiovascular History: edema, aortic stenosis, light headedness Respiratory History: Reports: COPD Gastrointestinal History: Reports: Gastritis, GERD, Other (See Below) Other Gastrointestinal History: gastroduodenitis Genitourinary History: Reports: Urinary Incontinence Other Genitourinary History: BLADDER 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: Musculoskeletal History: Reports: Arthritis, Other (See Below) Other Musculoskeletal History: impaired functional mobility, balance, gait, and endurance; leg cramps Neurological History: Reports: Other (See Below) Other Neuro History: Meniere's vertigo Psychiatric History: Reports: Dementia, Depression, Other (See Below) Other Psychiatric History: gradual onset memory impairment; hypersomnolence disorder, vascular dementia without behavioral disturbance Endocrine/Metabolic History: Reports: Hypothyroidism, Obesity/BMI 30+ Other Endocrine/Metabolic History: THYROID PROBLEM NOT SURE IF HYPO OR HYPER - Infectious Disease History Infectious Disease History: Reports: Chicken Pox, Measles - Past Surgical History GI Surgical History: Reports: Cholecystectomy Female Surgical History: Reports: Hysterectomy Social & Family History - Family History Family Medical History: Noncontributory - Tobacco Use Smoking Status *Q: Never Smoker Second Hand Smoke Exposure: No - Caffeine Use Caffeine Use: Reports: Coffee, Soda - Alcohol Use Days Per Week of Alcohol Use: 0 - Recreational Drug Use Recreational Drug Use: No Review of Systems - Review of Systems Review Of Systems: Unable To Obtain ED EXAM, GENERAL - Physical Exam Exam: See Below Exam Limited By: Physical Impairment General Appearance: Alert, WD/WN, Mild Distress Eye Exam: Bilateral Eye: Normal Inspection Ears: Normal External Exam Ear Exam: Bilateral Ear: Auricle Normal Nose: Normal Inspection Throat/Mouth: Normal Inspection Head: Atraumatic, Normocephalic Neck: Normal Inspection Respiratory/Chest: No Respiratory Distress, Lungs Clear (poor insp effort) Cardiovascular: Normal Peripheral Pulses Peripheral Pulses: 1+: Radial (L) GI/Abdominal: Normal Bowel Sounds, Soft (Female) Exam: Deferred Rectal (Female) Exam: Deferred Back Exam: Normal Inspection Extremities: Normal Inspection Neurological: Alert, Oriented, CN II-XII Intact, Normal Cognition, Abnormal Gait (walks with a walker) Psychiatric: Normal Affect, Normal Mood Skin Exam: Warm, Dry, Intact, Normal Color Lymphatic: No Adenopathy Course - Vital Signs Text/Narrative:: 87 y.o w f s/p right hip replacement, just d/c'd from the hospital, fell this am onto her right hip and came with her daughter to the ed by PC for evaluation. Pt is in her usual state of health but has a mild discomfort at her right lat hip. No N/V/D or dizziness or any other acute medical issues. Pt is on a scheduled medication regiment, using Vicodin. BP 114/96 pulse 80 Temp 37.a RR 18 Pulse ox 97% on RA PE: Righ hip sprain Imaging: R hip: NAD Impression: Fall, right hip sprain Tx:ICE, Pt is a schedule pain medication plan Reexam: Walks with a walker, baseline Plan: D/C with instructions Last Recorded V/S: Last Vital Signs Temp 37.1 C 08/21/17 10:30 Pulse 80 08/21/17 10:30 Resp 18 08/21/17 10:30 BP 114/92 H 08/21/17 10:30 Pulse Ox 97 08/21/17 10:30 - Orders/Labs/Meds Orders: Active Orders 24 hr Category Date Time Status Hip Min 2V or 3V Rt [CR] Stat Exams 08/21/17 10:25 Taken Departure - Departure Time of Disposition: 12:06 Disposition: Home, Self-Care 01 Condition: Good Clinical Impression: Fall Qualifiers: Encounter type: initial encounter Qualified Code(s): W19.XXXA - Unspecified fall, initial encounter Sprain of right hip Qualifiers: Encounter type: initial encounter Qualified Code(s): S73.101A - Unspecified sprain of right hip, initial encounter - Discharge Information Instructions: Acetaminophen; Hydrocodone tablets or capsules, Hip Rehabilitation After Surgery Referrals: Nakul Granados MD [Primary Care Provider] - Forms: ED Department Discharge Additional Instructions: Please cont your current meds, please apply ice to the affected area, please f/u , come back if your symptoms get worse acutely. - My Orders Last 24 Hours: My Active Orders 08/21/17 10:25 Hip Min 2V or 3V Rt [CR] Stat - Assessment/Plan Last 24 Hours: My Active Orders 08/21/17 10:25 Hip Min 2V or 3V Rt [CR] Stat
[2017-08-21 14:42] VITALS: BP 123/68
== END 2017-08-21 13:10 | disposition home or self-care (01) ==
LOC: FB.ED 10:19
DX: S73.101A Unspecified sprain of right hip, initial encounter (principal); I11.0 Hypertensive heart disease with heart failure; I50.9 Heart failure, unspecified; E78.00 Pure hypercholesterolemia, unspecified; K21.9 Gastro-esophageal reflux disease without esophagitis; E03.9 Hypothyroidism, unspecified; E66.9 Obesity, unspecified; Z88.8 Allergy status to other drugs, medicaments and biological substances; Z88.1 Allergy status to other antibiotic agents; Z91.040 Latex allergy status; Z88.0 Allergy status to penicillin; Z79.899 Other long term (current) drug therapy; W19.XXXA Unspecified fall, initial encounter; Z96.641 Presence of right artificial hip joint
CPT/HCPCS: 73502-RT; 99283

== ENCOUNTER 2017-09-21 19:16 | Inpatient (IN) | payer MEDICARE ==
[2017-09-21] MEDS ORDERED: cefTRIAXone 1,000 MG in Sodium Chloride 0.9% 50 ML IV ONE (21:32)
[2017-09-21] MEDS ORDERED: Docusate Sodium 100 MG Cap PO PRN (21:41)
[2017-09-21] MEDS ORDERED: Temazepam 7.5 MG Cap PO PRN (21:41)
[2017-09-21] MEDS ORDERED: Bisacodyl 5 MG Tab PO PRN (21:41)
[2017-09-21] MEDS ORDERED: Ondansetron 4 MG/2 ML SDV IV PRN (21:41)
[2017-09-21] MEDS ORDERED: Ondansetron 4 MG Tab.DIS PO PRN (21:41)
[2017-09-21] MEDS ORDERED: Enoxaparin 30 MG/0.3 ML Syringe SUBCUT SCH (21:45)
[2017-09-21] MEDS ORDERED: ACETAMINOPHEN PO PRN (21:51)
[2017-09-21] MEDS ORDERED: Cetirizine 10 MG Tab PO PRN (21:51)
[2017-09-21] MEDS ORDERED: HYDROCODONE PO PRN (21:51)
[2017-09-21] MEDS ORDERED: Fluticasone Propionate Nasal Spray 16 GM Bottle NAS PRN (21:51)
[2017-09-21] MEDS ORDERED: Sodium Chloride 0.9% 500 ML IV ONE (22:38)
[2017-09-21] MEDS ORDERED: Norepinephrine 4 MG in Dextrose 5% in Water 246 ML IV SCH ×2 (22:45)
[2017-09-21] MEDS: Sodium Chloride 0.9% 1,000 ML IV SCH (22:51)
[2017-09-22] MEDS: Enoxaparin 30 MG/0.3 ML Syringe SUBCUT SCH (01:34)
[2017-09-22] MEDS ORDERED: Potassium Chloride 10% 20 MEQ/15 ML Soln 15 ML UD Cup PO ONE (02:39)
[2017-09-22] MEDS: Sodium Chloride 0.9% 1,000 ML IV SCH ×3 (03:30→19:18)
[2017-09-22] MEDS: Acetaminophen 325 MG Tab PO PRN (06:26)
[2017-09-22] MEDS ORDERED: Fluticasone Propionate Nasal Spray 16 GM Bottle NAS PRN (07:45)
[2017-09-22] MEDS: Levothyroxine 112 MCG Tab PO SCH (07:56)
[2017-09-22] MEDS ORDERED: Furosemide 20 MG Tab PO SCH (08:00)
[2017-09-22] MEDS: Cholecalciferol (Vitamin D3) 1,000 Unit Tab PO SCH (08:48)
[2017-09-22] MEDS: Gabapentin 300 MG Cap PO SCH ×2 (08:48→20:04)
[2017-09-22] MEDS: Multivitamins with Iron/Calcium/Folic Acid/Minerals Tab PO SCH (08:48)
[2017-09-22] MEDS: Fish Oil/Omega-3 Fatty Acids 1 Gm Cap PO SCH (08:48)
[2017-09-22] MEDS: Aspirin 81 MG Tab.EC PO SCH (08:49)
[2017-09-22] MEDS ORDERED: amLODIPine 5 MG Tab PO SCH (09:00)
[2017-09-22] MEDS ORDERED: Non-Formulary Medication 1 Each (Aspirin [Halfprin] 81 MG) PO SCH (09:00)
[2017-09-22] MEDS ORDERED: Lisinopril 20 MG Tab PO SCH (09:00)
[2017-09-22] MEDS ORDERED: Enoxaparin 40 MG/0.4 ML Syringe SUBCUT SCH (09:00)
--- NOTE | 2017-09-22 10:15 | PCM.HP ---
H&P History of Present Illness - General Date of Service: 09/22/17 Admit Problem/Dx: Admission Diagnosis/Problem Admission Diagnosis/Problem Urosepsis - History of Present Illness Initial Comments - Free Text/Narative: I spoke with the daughter to obtain most of this history. I also spoke with your physician. Rosalia presented yesterday with delirium,confusion and unresponsiveness. She had earlier complained of chills and feeling cold and chills. She denies any urinary symptoms cough chest pain. She is chronically dizzy and has had presyncope thought to be due to aortic stenosis. She was seen last week by cardiology and there is plan for repair of the Severe Aaortic Stenosis sometime in October. She has hypertension and dementia that have been stable. She currently lives with her daughter Charity. - Related Data Allergies/Adverse Reactions: Allergies Allergy/AdvReac Type Severity Reaction Status Date / Time amitriptyline Allergy Cannot Verified 09/21/17 19:35 Remember atorvastatin [From Lipitor] Allergy Numbness Verified 09/21/17 19:35 azithromycin [From Zithromax] Allergy Cannot Verified 09/21/17 19:35 Remember ciprofloxacin [From Cipro] Allergy Nausea Verified 09/21/17 19:35 latex Allergy Rash Verified 09/21/17 19:35 meclizine Allergy Dizziness Verified 09/21/17 19:35 Penicillins Allergy Hives Verified 09/21/17 19:35 Home Medications: Home Meds Cholecalciferol (Vitamin D3) [Vitamin D3] 1,000 unit PO DAILY 10/02/14 [History] Furosemide [Lasix] 20 mg PO 08,14 10/02/14 [History] Gabapentin [Neurontin] 300 mg PO BID 10/02/14 [History] Lisinopril 20 mg PO DAILY 10/02/14 [History] Multivitamin with Minerals [Multiple Vitamin] 1 tab PO DAILY 10/02/14 [History] Simvastatin [Zocor] 10 mg PO BEDTIME 10/02/14 [History] Aspirin [Halfprin] 81 mg PO DAILY 07/30/17 [History] Cetirizine [ZyrTEC] 10 mg PO DAILY PRN 07/30/17 [History] Donepezil HCl 5 mg PO BEDTIME 07/30/17 [History] Fluticasone Propionate [Flonase] 1 spray NS BID PRN 07/30/17 [History] Levothyroxine 112 mcg PO DAILY 07/30/17 [History] Melatonin 3 mg PO BEDTIME 07/30/17 [History] Arcadia-3/DHA/Epa/Fish Oil [Arcadia-3 Fish Oil 1,000 MG Sfgl] 1,000 mg PO DAILY [History] Sennosides/Docusate Sodium [Senokot-S Tablet] 1 tab PO BID 07/30/17 [History] Sertraline HCl 50 mg PO BEDTIME 07/30/17 [History] amLODIPine [Norvasc] 5 mg PO DAILY 07/30/17 [History] Acetaminophen/HYDROcodone [[place] 325-10 MG] 1 tab PO Q4H PRN #30 tablet [Rx] Enoxaparin [Lovenox] 40 mg SUBCUT DAILY #4 08/20/17 [Rx] Past Medical History HEENT History: Reports: Hard of Hearing, Impaired Vision Cardiovascular History: Reports: Heart Failure, Heart Murmur, High Cholesterol, Hypertension, Other (See Below) Other Cardiovascular History: edema, aortic stenosis, light headedness Respiratory History: Reports: COPD Gastrointestinal History: Reports: Gastritis, GERD, Other (See Below) Other Gastrointestinal History: gastroduodenitis Genitourinary History: Reports: Urinary Incontinence, Other (See Below) Other Genitourinary History: BLADDER [employer]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: Musculoskeletal History: Reports: Arthritis, Other (See Below) Other Musculoskeletal History: impaired functional mobility, balance, gait, and endurance; leg cramps Neurological History: Reports: Other (See Below) Other Neuro History: Meniere's vertigo Psychiatric History: Reports: Dementia, Depression, Other (See Below) Other Psychiatric History: gradual onset memory impairment; hypersomnolence disorder, vascular dementia without behavioral disturbance Endocrine/Metabolic History: Reports: Hypothyroidism, Obesity/BMI 30+, Other ( See Below) Other Endocrine/Metabolic History: THYROID PROBLEM NOT SURE IF HYPO OR HYPER - Infectious Disease History Infectious Disease History: Reports: Chicken Pox, Measles - Past Surgical History GI Surgical History: Reports: Cholecystectomy Female Surgical History: Reports: Hysterectomy Social & Family History - Family History Family Medical History: Noncontributory - Tobacco Use Smoking Status *Q: Never Smoker Second Hand Smoke Exposure: No - Caffeine Use Caffeine Use: Reports: Coffee, Soda - Alcohol Use Days Per Week of Alcohol Use: 0 - Recreational Drug Use Recreational Drug Use: No H&P Review of Systems - Review of Systems: Review Of Systems: ROS reveals no pertinent complaints other than HPI. Exam - Exam Exam: See Below - Vital Signs Vital Signs: Last Vital Signs Temp 97.6 F 09/22/17 09:00 Pulse 85 09/22/17 09:15 Resp 20 09/22/17 09:15 BP 88/44 L 09/22/17 09:15 Pulse Ox 97 09/22/17 09:15 Weight: 89.443 kg - Exam General: Alert, Oriented, 4 HEENT: PERRLA, Hearing Intact, Mucosa Moist & [place], Nares Patent, Normal Nasal Septum, Posterior Pharynx Clear, Conjunctiva Clear, EOMI, EACs Clear, TMs Clear Neck: Supple, Trachea Midline, 2 Lungs: Clear to Auscultation, Normal Respiratory Effort Cardiovascular: Systolic Murmur GI/Abdominal Exam: Normal Bowel Sounds, Soft, Non-Tender, No Organomegaly, No Distention, No Abnormal Bruit, No Mass, Pelvis Stable (Female) Exam: Deferred Rectal (Female) Exam: Deferred Back Exam: Normal Inspection, Full Range of Motion, NT Extremities: Normal Inspection, Normal Range of Motion, Non-Tender, No Pedal Edema, Normal Capillary Refill Skin: Warm, Dry, Intact Neurological: Cranial Nerves Intact, Reflexes Equal Bilateral Neuro Extensive - Mental Status: Alert, Oriented x3, Normal Mood/Affect, Normal Cognition Neuro Extensive - Motor, Sensory, Reflexes: CN II-XII Intact, Normal Gait, Normal Reflexes Psychiatric: Alert, Normal Affect, Normal Mood - Patient Data Lab Results Last 24 hrs: Laboratory Results - last 24 hr 09/22/17 09/22/17 Range/Units 05:52 05:52 WBC 24.0 H (4.5-12.0) X10-3/uL RBC 3.75 (3.23-5.20) x10(6)uL Hgb 11.3 L (11.5-15.5) g/dL Hct 32.8 (30.0-51.3) % MCV 87.6 (80-96) fL MCH 30.0 (27.7-33.6) pg MCHC 34.3 (32.2-35.4) g/dL RDW 15.0 (11.5-15.5) % Plt Count 210 (125-369) X10(3)uL MPV 7.9 (7.4-10.4) fL Add Manual Diff Yes Neutrophils % (Manual) 91 H (46-82) % Band Neutrophils % 6 (0-6) % Lymphocytes % (Manual) 2 L (13-37) % Monocytes % (Manual) 1 L (4-12) % Sodium 141 (135-145) mmol/L Potassium 4.5 D (3.5-5.3) mmol/L Chloride 107 (100-110) mmol/L Carbon Dioxide 25 (21-32) mmol/L BUN 25 H (7-18) mg/dL Creatinine 1.4 H (0.55-1.02) mg/dL Est Cr Clr Drug Dosing 27.01 mL/min Estimated GFR (MDRD) 35 L (>60) BUN/Creatinine Ratio 17.9 (9-20) Glucose 149 H (80-116) mg/dL Calcium 9.3 (8.6-10.2) mg/dL Total Bilirubin 0.5 (0.1-1.3) mg/dL AST 20 D (5-25) IU/L ALT 17 D (12-36) U/L Alkaline Phosphatase 75 (56-112) IU/L Total Protein 6.5 (6.0-8.0) g/dL Albumin 2.9 L (3.2-4.6) g/dL Globulin 3.6 g/dL Albumin/Globulin Ratio 0.8 Result Diagrams: 09/22/17 05:52 09/22/17 05:52 *Q Meaningful Use (ADM) - VTE *Q VTE Criteria *Q: - Stroke *Q Stroke Criteria *Q: - AMI *Q AMI Criteria *Q: - Problem List (1) Hypotension SNOMED Code(s): 31604233 ICD Code: I95.9 - HYPOTENSION, UNSPECIFIED Status: Acute Current Visit: Yes Qualifiers: Hypotension type: unspecified hypotension type Qualified Code(s): I95.9 - Hypotension, unspecified (2) Aortic stenosis SNOMED Code(s): 48369502 ICD Code: I35.0 - NONRHEUMATIC AORTIC (VALVE) STENOSIS Status: Chronic Current Visit: Yes Qualifiers: Cardiac valve disease etiology: etiology unspecified Qualified Code(s): I35.0 - Nonrheumatic aortic (valve) stenosis (3) Dizziness SNOMED Code(s): 567322108 ICD Code: R42 - DIZZINESS AND GIDDINESS Status: Chronic Current Visit: Yes (4) HTN (hypertension) SNOMED Code(s): 20923757 ICD Code: I10 - ESSENTIAL (PRIMARY) HYPERTENSION Status: Chronic Current Visit: Yes Qualifiers: Hypertension type: essential hypertension Qualified Code(s): I10 - Essential (primary) hypertension (5) Delirium SNOMED Code(s): 3432897 ICD Code: R41.0 - DISORIENTATION, UNSPECIFIED Status: Chronic Current Visit: Yes (6) Dementia SNOMED Code(s): 37772249 ICD Code: F03.90 - UNSPECIFIED DEMENTIA WITHOUT BEHAVIORAL DISTURBANCE Status: Chronic Current Visit: Yes Qualifiers: Dementia type: vascular dementia Dementia behavioral disturbance: without behavioral disturbance Qualified Code(s): F01.50 - Vascular dementia without behavioral disturbance (7) UTI (urinary tract infection) SNOMED Code(s): 88317811 ICD Code: N39.0 - URINARY TRACT INFECTION, SITE NOT SPECIFIED Status: Acute Current Visit: Yes Qualifiers: Encounter type: initial encounter Problem List Initiated/Reviewed/Updated: Yes Orders Last 24hrs: Active Orders 24 hr Category Date Time Status Cardiac Monitoring [] ,, Care 09/21/17 21:42 Active Height and Weight [] 06 Care 09/21/17 21:41 Active Insert Thakur Catheter [Insert Urinary Catheter] [OM.PC] Care 09/22/17 00:15 Ordered Q24H Intake and Output [] ,, Care 09/21/17 21:42 Active Urinary Catheter Assessment [RC] ,08,16 Care 09/22/17 00:18 Active Acetaminophen [Tylenol] Med 09/21/17 21:41 Active 650 mg PO Q4H PRN Acetaminophen/HYDROcodone [[place] 325-5 MG] Med 09/21/17 21:41 Active 1 tab PO Q4H PRN Aspirin [Halfprin] Med 09/22/17 09:00 Active 81 mg PO DAILY Bisacodyl [Dulcolax] Med 09/21/17 21:41 Active 5 mg PO DAILY PRN Cetirizine [ZyrTEC] Med 09/21/17 21:51 Active 10 mg PO DAILY PRN Cholecalciferol (Vitamin D3) [Vitamin D3] Med 09/22/17 09:00 Active 1,000 units PO DAILY Docusate Sodium [Colace] Med 09/21/17 21:41 Active 100 mg PO BID PRN Docusate Sodium/Sennosides [Senna Plus] Med 09/22/17 09:00 Active 1 tab PO BID Enoxaparin [Lovenox] Med 09/22/17 01:00 Active 30 mg SUBCUT Q24H Fish Oil/Arcadia-3 Fatty Acids [Fish Oil] Med 09/22/17 09:00 Active 1 gm PO DAILY Fluticasone Propionate [Flonase] Med 09/22/17 07:45 Active 0 gm ANJELICA BID PRN Gabapentin [Neurontin] Med 09/22/17 09:00 Active 300 mg PO BID Levothyroxine Med 09/22/17 07:30 Active 112 mcg PO ACBREAKFAST Melatonin Med 09/22/17 21:00 Active 3 mg PO BEDTIME Multivitamins w-Iron/Ca/FA/Min [Thera M Plus] Med 09/22/17 09:00 Active 1 tab PO DAILY Norepinephrine [Levophed] 4 mg Med 09/21/17 22:45 Active Dextrose 5% in Water 246 ml IV TITRATE Ondansetron [Zofran ODT] Med 09/21/17 21:41 Active 4 mg PO Q4H PRN Ondansetron [Zofran] Med 09/21/17 21:41 Active 4 mg IV Q6H PRN Sertraline [Zoloft] Med 09/22/17 21:00 Active 50 mg PO BEDTIME Simvastatin [Zocor] Med 09/22/17 21:00 Active 10 mg PO BEDTIME Sodium Chloride 0.9% [Normal Saline] 1,000 ml Med 09/21/17 21:45 Active IV ASDIRECTED Temazepam [Restoril] Med 09/21/17 21:41 Active 7.5 mg PO BEDTIME PRN cefTRIAXone [Rocephin] Med 09/22/17 22:00 Active 1,000 mg IV Q24H Medication Orders Acetaminophen (Tylenol) 650 mg PO Q4H PRN PRN Reason: Pain (Mild 1-3)/fever Last Admin: 09/22/17 06:26 Dose: 650 mg Hydrocodone Bitart/Acetaminophen ([place] 325-5 Mg) 1 tab PO Q4H PRN PRN Reason: Pain (moderate 4-6) Aspirin (Halfprin) 81 mg PO DAILY [facility] Last Admin: 09/22/17 08:49 Dose: 81 mg Bisacodyl (Dulcolax) 5 mg PO DAILY PRN PRN Reason: Constipation Ceftriaxone Sodium (Rocephin) 1,000 mg IV Q24H JEWELL Cetirizine HCl (Zyrtec) 10 mg PO DAILY PRN PRN Reason: Itching Cholecalciferol (Vitamin D3) 1,000 units PO DAILY [facility] Last Admin: 09/22/17 08:48 Dose: 1,000 units Docusate Sodium (Colace) 100 mg PO BID PRN PRN Reason: Constipation Enoxaparin Sodium (Lovenox) 30 mg SUBCUT Q24H [facility] Last Admin: 09/22/17 01:34 Dose: 30 mg Fish Oil (Fish Oil) 1 gm PO DAILY [facility] Last Admin: 09/22/17 08:48 Dose: 1 gm Fluticasone Propionate (Flonase) 0 gm ANJELICA BID PRN PRN Reason: Congestion Gabapentin (Neurontin) 300 mg PO BID [facility] Last Admin: 09/22/17 08:48 Dose: 300 mg Sodium Chloride (Normal Saline) 1,000 mls @ 100 mls/hr IV ASDIRECTED [facility] Last Admin: 09/22/17 03:30 Dose: 100 mls/hr Norepinephrine Bitartrate 4 mg (/ Dextrose/Water) 250 mls @ 7.5 mls/hr IV TITRATE JEWELL; 2 MCG/MIN PRN Reason: Protocol Last Titration: 09/22/17 02:07 Dose: 3 mcg/min, 11.25 mls/hr Admin: 09/22/17 01:07 Dose: 2 mcg/min, 7.5 mls/hr Levothyroxine Sodium (Levothyroxine) 112 mcg PO ACBREAKFAST [facility] Last Admin: 09/22/17 07:56 Dose: 112 mcg Melatonin (Melatonin) 3 mg PO BEDTIME [facility] Multivitamins/Minerals (Thera M Plus) 1 tab PO DAILY [facility] Last Admin: 09/22/17 08:48 Dose: 1 tab Ondansetron HCl (Zofran Odt) 4 mg PO Q4H PRN PRN Reason: nausea, able to take PO Ondansetron HCl (Zofran) 4 mg IV Q6H PRN PRN Reason: Nausea/Vomiting Senna/Docusate Sodium (Senna Plus) 1 tab PO BID JEWELL Last Admin: 09/22/17 08:48 Dose: 1 tab Sertraline HCl (Zoloft) 50 mg PO BEDTIME JEWELL Simvastatin (Zocor) 10 mg PO BEDTIME JEWELL Sodium Chloride (Saline Flush) 10 ml FLUSH ASDIRECTED PRN PRN Reason: Keep Vein Open Temazepam (Restoril) 7.5 mg PO BEDTIME PRN PRN Reason: Sleep Assessment/Plan Comment:: I spoke with the intensive care physician Derrick. He felt that the hypotension is unlikely to be due to aortic stenosis. Unlikely to be cardiogenic in origin. Therefore I will start fluid resuscitation and continued broad-spectrum antibiotics. I've increased Normal Saline to 150 an hour and started vancomycin. Repeat lactic acid CRP CBC and basic profile in morning. Blood culture and urine cultures are pending. We will update the family. Keep urine output to about 50cc an hour
--- NOTE | 2017-09-22 10:47 | CR ---
INDICATION: Short of breath, lightheaded. CHEST: An AP upright view of the chest, 10/01/2017, was compared with 2014, and revealed little interval change with no definite acute process. The heart appeared slightly enlarged. The aorta is tortuous with calcification in the arch. Overlying EKG leads and buttons are noted. A definite active infiltrate or effusion was not identified. IMPRESSION: No definite acute process - full inspiration PA and lateral views of the chest may be helpful for further evaluation, as felt to be clinically necessary. MTDD
[2017-09-22] MEDS ORDERED: Vancomycin 750 MG, Vancomycin 500 MG in Sodium Chloride 0.9% 250 ML IV SCH (11:30)
--- NOTE | 2017-09-22 12:19 | ER ---
DATE SEEN: 09/21/2017 TIME SEEN: The patient was seen at 1950 hours. HISTORY OF PRESENT ILLNESS: This is an 87-year-old, who comes in with history of 97 degrees temperature, she was warm on and off intermittently throughout the day, and has had confusion and delirium. She was unresponsive for a period time 1730 hours to 1830 hours this evening. She has mild rhinorrhea, cough, and cold since 5 o'clock. She has slight difficulty breathing. She is planning to have catheterization of the aortic valve and replacement of aortic valve in October 2017. She denies frequency, urgency, dysuria, abdominal discomfort, diarrhea, back pain, or cough. She has had urinary tract infection in the past. Denies frequency, urgency, or dysuria presently. SOCIAL HISTORY: The patient lives with her daughter. PAST MEDICAL HISTORY: Syncope, right hip fracture. ALLERGIES: 1. Amitriptyline. 2. Atorvastatin. 3. Azithromycin. 4. Ciprofloxacin. 5. Latex. 6. Meclizine. 7. Penicillin. CURRENT MEDICATIONS: 1. Tylenol. 2. Amlodipine. 3. Dulcolax. 4. Zyrtec. 5. Cholecalciferol. 6. Vitamin D. 7. Colace. 8. Enoxaparin. 9. Fish oil. 10.Flonase. 11.Lasix. 12.Gabapentin. 13.Hydrocodone. 14.Levothyroxine 112 mcg. 15.Lisinopril 20 mg. 16.Melatonin. 17.Multivitamins. 18.Zoloft. 19.Simvastatin. REVIEW OF SYSTEMS: The patient is a poor historian. She is a kind of sleepy, but is able to be aroused. She denies headache, denies shortness of breath, denies cough, denies abdominal discomfort, denies chest pain, and denies swelling of her ankles. PHYSICAL EXAMINATION: VITAL SIGNS: Blood pressure 82/51, heart rate 96, respirations 16, oxygen saturation 93% on room air, temperature 36.4 degrees. Weight 88.5 kg with a BMI of 30.6 kg/m2. GENERAL: The patient is slightly somnolent and is overweight. She has some flushing in her face. HEENT: Multiple teeth are missing. PERRLA intact. TMs negative. Pharynx, no erythema. No cervical adenopathy. No pressure tenderness. No tenderness on palpation pressure of the sinuses. EOMs normal. NECK: No thyromegaly. No cervical adenopathy. She has definite rales and also definite bruits in the neck, more notable right greater than left 2-3/6 crescendo systolic murmur, right parasternal greater than left parasternal and also radiates to the left midclavicular line, 2-3 ribs and also the lower parasternal area. LUNGS: Clear without rales, rhonchi, or wheezes. ABDOMEN: Soft. No guarding. No abdominal discomfort. No rebound. EXTREMITIES: There is 1+ pedal edema. Minimal. LABORATORY FINDINGS: White count 16,000, PMNs 86, lymphocytes 5, bands 3. Sodium 141, potassium 3.4, chloride 105, bicarbonate 24, BUN 24, creatinine 1.4. GFR 27 (estimated GFR correction is 35) stage 3 chronic kidney disease with acute kidney injury. Glucose mild, hyperreactive hyperglycemia 165, lactic acid elevated 2.8. Urinalysis large occult 30 protein, and large LES, greater than 100 rbc's, greater than 100 wbc's, moderate bacteria. ASSESSMENT: 1. Urosepsis. 2. Hypotension. Norepinephrine drip started. The patient is flushed with 500 mL of normal saline. 3. Obesity. 4. Chest x-ray is negative. No evidence for pneumonia. 5. Blood cultures pending. The patient is started on Rocephin IV. She has multiple allergies. 1 g IV was given in the ED. Placed on enoxaparin 30 mg subcutaneous. 6. Continue other home medicines and admitted to the hospital for further treatment. 7. Delirium - was more notable early on, but seems a bit better with the IV flush. Still pressures are low. 8. Hypokalemia - potassium 3.4. 40 mEq potassium given to the patient. /[id number] ROXANNE/FANNIEL
[2017-09-22] MEDS: Vancomycin 750 MG, Vancomycin 500 MG in Sodium Chloride 0.9% 250 ML IV SCH (12:58)
[2017-09-22] MEDS: Sodium Chloride 0.9% 10 ML Syringe FLUSH PRN (14:31)
[2017-09-22] MEDS: Melatonin 3 MG Tab PO SCH (20:04)
[2017-09-22] MEDS: Sertraline 50 MG Tab PO SCH (20:05)
[2017-09-22] MEDS: Simvastatin 10 MG Tab PO SCH (20:05)
[2017-09-22] MEDS: cefTRIAXone 1,000 MG VIAL IV SCH (21:35)
[2017-09-22] MEDS ORDERED: cefTRIAXone 1,000 MG in Sodium Chloride 0.9% 50 ML IV SCH (22:00)
[2017-09-23] MEDS: Enoxaparin 30 MG/0.3 ML Syringe SUBCUT SCH (01:49)
[2017-09-23] MEDS: Sodium Chloride 0.9% 1,000 ML IV SCH (01:50)
[2017-09-23] MEDS: Sodium Chloride 0.9% 10 ML Syringe FLUSH PRN ×3 (05:17→21:26)
[2017-09-23] MEDS: Levothyroxine 112 MCG Tab PO SCH (07:34)
[2017-09-23] MEDS: Fish Oil/Omega-3 Fatty Acids 1 Gm Cap PO SCH (08:11)
[2017-09-23] MEDS: Multivitamins with Iron/Calcium/Folic Acid/Minerals Tab PO SCH (08:11)
[2017-09-23] MEDS: Cholecalciferol (Vitamin D3) 1,000 Unit Tab PO SCH (08:11)
[2017-09-23] MEDS: Aspirin 81 MG Tab.EC PO SCH (08:12)
[2017-09-23] MEDS: Gabapentin 300 MG Cap PO SCH ×2 (08:12→20:24)
--- NOTE | 2017-09-23 08:57 | PCM.PN ---
- General Info Date of Service: 09/23/17 Subjective Update: Patient feels much better today. She has gotten more than 2 L of normal saline, and has been progressing well. Denies chest pain fever chills and she is more alert. - Review of Systems HEENT: Reports: No Symptoms Pulmonary: Reports: No Symptoms Cardiovascular: Reports: No Symptoms - Patient Data Vitals - Most Recent: Last Vital Signs Temp 97.5 F 09/23/17 07:30 Pulse 83 09/23/17 07:30 Resp 18 09/23/17 07:30 BP 116/60 09/23/17 07:30 Pulse Ox 94 L 09/23/17 07:30 Weight - Most Recent: 91.852 kg I&O - Last 24 Hours: Intake & Output 09/22/17 09/23/17 09/23/17 22:59 06:59 14:59 Intake Total 1831 1110 Output Total 700 750 Balance 1131 360 Lab Results Last 24 Hours: Laboratory Results - last 24 hr 09/23/17 09/23/17 09/23/17 Range/Units 06:10 06:10 06:10 WBC 14.4 H (4.5-12.0) X10-3/uL RBC 3.54 (3.23-5.20) x10(6)uL Hgb 10.5 L (11.5-15.5) g/dL Hct 30.9 (30.0-51.3) % MCV 87.4 (80-96) fL MCH 29.8 (27.7-33.6) pg MCHC 34.1 (32.2-35.4) g/dL RDW 15.2 (11.5-15.5) % Plt Count 170 (125-369) X10(3)uL MPV 8.1 (7.4-10.4) fL Neut % (Auto) 82.2 H (46-82) % Lymph % (Auto) 6.9 L (13-37) % [place] % (Auto) 7.5 (4-12) % Eos % (Auto) 3 (1.0-5.0) % Baso % (Auto) 1 (0-2) % Neut # (Auto) 11.8 H (1.6-8.3) # Lymph # (Auto) 1.0 (0.6-5.0) # [place] # (Auto) 1.1 (0.0-1.3) # Eos # (Auto) 0.4 (0.0-0.8) # Baso # (Auto) 0.1 (0.0-0.2) # Sodium 145 (135-145) mmol/L Potassium 4.2 (3.5-5.3) mmol/L Chloride 112 H D (100-110) mmol/L Carbon Dioxide 22 (21-32) mmol/L BUN 21 H (7-18) mg/dL Creatinine 1.2 H (0.55-1.02) mg/dL Est Cr Clr Drug Dosing 31.51 mL/min Estimated GFR (MDRD) 42 L (>60) BUN/Creatinine Ratio 17.5 (9-20) Glucose 114 (80-116) mg/dL Calcium 8.9 (8.6-10.2) mg/dL Troponin I 0.298 H* (<0.017-0.056) ng/mL C-Reactive Protein 26.1 H* (0.5-0.9) mg/dL NT-Pro-B Natriuret Pep (<=450) pg/mL 09/23/17 Range/Units 06:10 WBC (4.5-12.0) X10-3/uL RBC (3.23-5.20) x10(6)uL Hgb (11.5-15.5) g/dL Hct (30.0-51.3) % MCV (80-96) fL MCH (27.7-33.6) pg MCHC (32.2-35.4) g/dL RDW (11.5-15.5) % Plt Count (125-369) X10(3)uL MPV (7.4-10.4) fL Neut % (Auto) (46-82) % Lymph % (Auto) (13-37) % [place] % (Auto) (4-12) % Eos % (Auto) (1.0-5.0) % Baso % (Auto) (0-2) % Neut # (Auto) (1.6-8.3) # Lymph # (Auto) (0.6-5.0) # [place] # (Auto) (0.0-1.3) # Eos # (Auto) (0.0-0.8) # Baso # (Auto) (0.0-0.2) # Sodium (135-145) mmol/L Potassium (3.5-5.3) mmol/L Chloride (100-110) mmol/L Carbon Dioxide (21-32) mmol/L BUN (7-18) mg/dL Creatinine (0.55-1.02) mg/dL Est Cr Clr Drug Dosing mL/min Estimated GFR (MDRD) (>60) BUN/Creatinine Ratio (9-20) Glucose (80-116) mg/dL Calcium (8.6-10.2) mg/dL Troponin I (<0.017-0.056) ng/mL C-Reactive Protein (0.5-0.9) mg/dL NT-Pro-B Natriuret Pep 6130 H* (<=450) pg/mL Med Orders - Current: Current Medications Acetaminophen (Tylenol) 650 mg PO Q4H PRN PRN Reason: Pain (Mild 1-3)/fever Last Admin: 09/22/17 06:26 Dose: 650 mg Hydrocodone Bitart/Acetaminophen ([place]aughter 325-5 Mg) 1 tab PO Q4H PRN PRN Reason: Pain (moderate 4-6) Aspirin (Halfprin) 81 mg PO DAILY [facility] Last Admin: 09/23/17 08:12 Dose: 81 mg Bisacodyl (Dulcolax) 5 mg PO DAILY PRN PRN Reason: Constipation Ceftriaxone Sodium (Rocephin) 1,000 mg IV Q24H [facility] Last Admin: 09/22/17 21:35 Dose: 1,000 mg Cetirizine HCl (Zyrtec) 10 mg PO DAILY PRN PRN Reason: Itching Cholecalciferol (Vitamin D3) 1,000 units PO DAILY [facility] Last Admin: 09/23/17 08:11 Dose: 1,000 units Docusate Sodium (Colace) 100 mg PO BID PRN PRN Reason: Constipation Enoxaparin Sodium (Lovenox) 30 mg SUBCUT Q24H [facility] Last Admin: 09/23/17 01:49 Dose: 30 mg Fish Oil (Fish Oil) 1 gm PO DAILY [facility] Last Admin: 09/23/17 08:11 Dose: 1 gm Fluticasone Propionate (Flonase) 0 gm ANJELICA BID PRN PRN Reason: Congestion Gabapentin (Neurontin) 300 mg PO BID [facility] Last Admin: 09/23/17 08:12 Dose: 300 mg Norepinephrine Bitartrate 4 mg (/ Dextrose/Water) 250 mls @ 7.5 mls/hr IV TITRATE JEWELL; 2 MCG/MIN PRN Reason: Protocol Last Titration: 09/22/17 18:45 Dose: 0 mcg/min, 0 mls/hr Sodium Chloride (Normal Saline) 1,000 mls @ 150 mls/hr IV ASDIRECTED [facility] Last Admin: 09/23/17 01:50 Dose: 150 mls/hr Vancomycin HCl 750 mg/Vancomycin HCl 500 mg/ Sodium Chloride 250 mls @ 167 mls/ hr IV Q24H [facility] Last Admin: 09/22/17 12:58 Dose: 167 mls/hr Levothyroxine Sodium (Levothyroxine) 112 mcg PO ACBREAKFAST [facility] Last Admin: 09/23/17 07:34 Dose: 112 mcg Melatonin (Melatonin) 3 mg PO BEDTIME [facility] Last Admin: 09/22/17 20:04 Dose: 3 mg Multivitamins/Minerals (Thera M Plus) 1 tab PO DAILY [facility] Last Admin: 09/23/17 08:11 Dose: 1 tab Ondansetron HCl (Zofran Odt) 4 mg PO Q4H PRN PRN Reason: nausea, able to take PO Ondansetron HCl (Zofran) 4 mg IV Q6H PRN PRN Reason: Nausea/Vomiting Senna/Docusate Sodium (Senna Plus) 1 tab PO BID [facility] Last Admin: 09/23/17 08:12 Dose: 1 tab Sertraline HCl (Zoloft) 50 mg PO BEDTIME [facility] Last Admin: 09/22/17 20:05 Dose: 50 mg Simvastatin (Zocor) 10 mg PO BEDTIME [facility] Last Admin: 09/22/17 20:05 Dose: 10 mg Sodium Chloride (Saline Flush) 10 ml FLUSH ASDIRECTED PRN PRN Reason: Keep Vein Open Last Admin: 09/23/17 05:17 Dose: 10 ml Temazepam (Restoril) 7.5 mg PO BEDTIME PRN PRN Reason: Sleep Vancomycin HCl (Pharmacy To Dose - Vancomycin) 0 dose .XX ASDIRECTED [facility] Discontinued Medications Amlodipine Besylate (Norvasc) 5 mg PO DAILY [facility] Last Admin: 09/22/17 16:03 Dose: Not Given Enoxaparin Sodium (Lovenox) 30 mg SUBCUT Q24H [facility] Last Admin: 09/22/17 02:09 Dose: Not Given Enoxaparin Sodium (Lovenox) 40 mg SUBCUT DAILY [facility] Fluticasone Propionate (Flonase) 0 gm ANJELICA BID PRN PRN Reason: Congestion Furosemide (Lasix) 20 mg PO BIDDIURETIC [facility] Last Admin: 09/22/17 16:03 Dose: Not Given Ceftriaxone Sodium 1,000 mg/ (Sodium Chloride) 50 mls @ 100 mls/hr IV ONETIME ONE Stop: 09/21/17 22:01 Last Admin: 09/21/17 21:50 Dose: 100 mls/hr Sodium Chloride (Normal Saline) 1,000 mls @ 100 mls/hr IV ASDIRECTED [facility] Last Admin: 09/22/17 03:30 Dose: 100 mls/hr Ceftriaxone Sodium 1,000 mg/ (Sodium Chloride) 50 mls @ 100 mls/hr IV Q24H [facility] Sodium Chloride (Normal Saline) 500 mls @ 500 mls/hr IV .BOLUS ONE Stop: 09/21/17 23:37 Last Admin: 09/21/17 23:11 Dose: 500 mls/hr Lisinopril (Prinivil) 20 mg PO DAILY [facility] Last Admin: 09/22/17 16:03 Dose: Not Given Non-Formulary Medication (Aspirin [Halfprin]) 81 mg PO DAILY [facility] Potassium Chloride (Potassium Chloride Solution) 40 meq PO ONETIME ONE Stop: 09/22/17 02:40 Last Admin: 09/22/17 03:22 Dose: 40 meq - Exam Quality Assessment: No: Supplemental Oxygen General: Alert, Oriented Neck: Supple, Trachea Midline Lungs: Normal Respiratory Effort Cardiovascular: Regular Rate, Murmurs - Problem List & Annotations (1) Hypotension SNOMED Code(s): 04585646 Code(s): I95.9 - HYPOTENSION, UNSPECIFIED Status: Acute Current Visit: Yes Qualifiers: Hypotension type: unspecified hypotension type Qualified Code(s): I95.9 - Hypotension, unspecified (2) Aortic stenosis SNOMED Code(s): 31473741 Code(s): I35.0 - NONRHEUMATIC AORTIC (VALVE) STENOSIS Status: Chronic Current Visit: Yes Qualifiers: Cardiac valve disease etiology: etiology unspecified Qualified Code(s): I35.0 - Nonrheumatic aortic (valve) stenosis (3) Dizziness SNOMED Code(s): 083633109 Code(s): R42 - DIZZINESS AND GIDDINESS Status: Chronic Current Visit: Yes (4) HTN (hypertension) SNOMED Code(s): 51385700 Code(s): I10 - ESSENTIAL (PRIMARY) HYPERTENSION Status: Chronic Current Visit: Yes Qualifiers: Hypertension type: essential hypertension Qualified Code(s): I10 - Essential (primary) hypertension (5) Delirium SNOMED Code(s): 9896226 Code(s): R41.0 - DISORIENTATION, UNSPECIFIED Status: Chronic Current Visit: Yes (6) Dementia SNOMED Code(s): 35769494 Code(s): F03.90 - UNSPECIFIED DEMENTIA WITHOUT BEHAVIORAL DISTURBANCE Status: Chronic Current Visit: Yes Qualifiers: Dementia type: vascular dementia Dementia behavioral disturbance: without behavioral disturbance Qualified Code(s): F01.50 - Vascular dementia without behavioral disturbance (7) UTI (urinary tract infection) SNOMED Code(s): 84168225 Code(s): N39.0 - URINARY TRACT INFECTION, SITE NOT SPECIFIED Status: Acute Current Visit: Yes Qualifiers: Encounter type: initial encounter (8) Sepsis SNOMED Code(s): 12372938 Code(s): A41.9 - SEPSIS, UNSPECIFIED ORGANISM Status: Acute Current Visit : Yes (9) Elevated troponin I level SNOMED Code(s): 680972612 Code(s): R74.8 - ABNORMAL LEVELS OF OTHER SERUM ENZYMES Status: Acute Current Visit: Yes - Problem List Review Problem List Initiated/Reviewed/Updated: Yes - My Orders Last 24 Hours: My Active Orders 09/22/17 11:00 Communication Order [RC] 00,08,16 Sodium Chloride 0.9% [Normal Saline] 1,000 ml IV ASDIRECTED 09/22/17 11:30 Vancomycin Pharmacy to Dose [Pharmacy to Dose - Vancomycin] See Dose Instructions .XX ASDIRECTED 09/22/17 12:00 Vancomycin 750 mg Vancomycin 500 mg Sodium Chloride 0.9% [Normal Saline] 250 ml IV Q24H 09/22/17 12:03 Code Status [Resuscitation Status] Routine 09/23/17 05:08 Convert IV to Saline Lock [OM.PC] Routine 09/23/17 08:49 Urinary Catheter Removal [RC] Per Unit Routine 09/23/17 08:51 Patient Status Manage Transfer [TRANSFER] Routine 09/24/17 05:11 CBC WITH AUTO DIFF [HEME] AM COMPREHENSIVE METABOLIC PN,CMP [CHEM] AM PRO B-TYPE NATRIUR PEPT,BNPPRO [CHEM] DAILY TROPONIN I [CHEM] AM 09/25/17 05:11 PRO B-TYPE NATRIUR PEPT,BNPPRO [CHEM] DAILY 09/25/17 11:30 VANCOMYCIN TROUGH [CHEM] Timed 09/26/17 05:11 PRO B-TYPE NATRIUR PEPT,BNPPRO [CHEM] DAILY - Plan Plan:: The troponin is elevated which could be due to sepsis. Blood cultures have grown unidentified organism but a urine is growing most likely and Escherichia coli. I'll continued IV vancomycin and IV ceftriaxone, but the patient may go to a regular bed today,encourage, ambulation Hep-Lock IV fluids and repeat some labs in the morning.
[2017-09-23] MEDS: Vancomycin 750 MG, Vancomycin 500 MG in Sodium Chloride 0.9% 250 ML IV SCH (12:15)
[2017-09-23] MEDS: Acetaminophen 325 MG Tab PO PRN (18:52)
[2017-09-23] MEDS: Melatonin 3 MG Tab PO SCH (20:23)
[2017-09-23] MEDS: Simvastatin 10 MG Tab PO SCH (20:23)
[2017-09-23] MEDS: Sertraline 50 MG Tab PO SCH (20:24)
[2017-09-23] MEDS: cefTRIAXone 1,000 MG VIAL IV SCH (21:26)
[2017-09-24] MEDS: Enoxaparin 30 MG/0.3 ML Syringe SUBCUT SCH (01:47)
[2017-09-24] MEDS: Levothyroxine 112 MCG Tab PO SCH (08:02)
[2017-09-24] MEDS: Aspirin 81 MG Tab.EC PO SCH (08:03)
[2017-09-24] MEDS: Gabapentin 300 MG Cap PO SCH ×2 (08:03→21:09)
[2017-09-24] MEDS: Fish Oil/Omega-3 Fatty Acids 1 Gm Cap PO SCH (08:03)
[2017-09-24] MEDS: Cholecalciferol (Vitamin D3) 1,000 Unit Tab PO SCH (08:04)
[2017-09-24] MEDS: Multivitamins with Iron/Calcium/Folic Acid/Minerals Tab PO SCH (08:04)
--- NOTE | 2017-09-24 11:53 | PCM.PN ---
- General Info Date of Service: 09/24/17 Admission Dx/Problem (Free Text): Patient states she's feeling good. She says she is alert, awake, no fevers or chills. She denies chest pain, shortness of breath, dysuria, pyuria or hematuria. She says she has bilateral knee pain with swelling. That's chronic issues and she uses Tylenol and she generally a wheelchair for this. - Patient Data Vitals - Most Recent: Last Vital Signs Temp 97.6 F 09/24/17 08:07 Pulse 93 09/24/17 08:07 Resp 20 09/24/17 08:07 BP 123/79 09/24/17 08:07 Pulse Ox 96 09/24/17 08:07 Weight - Most Recent: 201 lb 6.4 oz I&O - Last 24 Hours: Intake & Output 09/23/17 09/24/17 09/24/17 22:59 06:59 14:59 Intake Total 300 100 Output Total 0 250 Balance 300 -150 Lab Results Last 24 Hours: Laboratory Results - last 24 hr 09/24/17 09/24/17 09/24/17 Range/Units 06:20 06:20 06:20 WBC 10.5 (4.5-12.0) X10-3/uL RBC 3.62 (3.23-5.20) x10(6)uL Hgb 10.8 L (11.5-15.5) g/dL Hct 31.6 (30.0-51.3) % MCV 87.2 (80-96) fL MCH 29.8 (27.7-33.6) pg MCHC 34.1 (32.2-35.4) g/dL RDW 15.2 (11.5-15.5) % Plt Count 183 (125-369) X10(3)uL MPV 8.1 (7.4-10.4) fL Neut % (Auto) 76.6 (46-82) % Lymph % (Auto) 10.5 L (13-37) % [place] % (Auto) 8.6 (4-12) % Eos % (Auto) 4 (1.0-5.0) % Baso % (Auto) 0 (0-2) % Neut # (Auto) 8.1 (1.6-8.3) # Lymph # (Auto) 1.1 (0.6-5.0) # [place] # (Auto) 0.9 (0.0-1.3) # Eos # (Auto) 0.4 (0.0-0.8) # Baso # (Auto) 0.0 (0.0-0.2) # Sodium 143 (135-145) mmol/L Potassium 4.3 (3.5-5.3) mmol/L Chloride 110 (100-110) mmol/L Carbon Dioxide 26 (21-32) mmol/L BUN 18 (7-18) mg/dL Creatinine 1.2 H (0.55-1.02) mg/dL Est Cr Clr Drug Dosing 31.51 mL/min Estimated GFR (MDRD) 42 L (>60) BUN/Creatinine Ratio 15.0 (9-20) Glucose 106 (80-116) mg/dL Calcium 9.3 (8.6-10.2) mg/dL Total Bilirubin 0.4 (0.1-1.3) mg/dL AST 122 H D (5-25) IU/L ALT 108 H D (12-36) U/L Alkaline Phosphatase 126 H (56-112) IU/L Troponin I 0.162 H* (<0.017-0.056) ng/mL NT-Pro-B Natriuret Pep 7470 H* (<=450) pg/mL Total Protein 6.1 (6.0-8.0) g/dL Albumin 2.4 L (3.2-4.6) g/dL Globulin 3.7 g/dL Albumin/Globulin Ratio 0.7 Med Orders - Current: Current Medications Acetaminophen (Tylenol) 650 mg PO Q4H PRN PRN Reason: Pain (Mild 1-3)/fever Last Admin: 09/23/17 18:52 Dose: 650 mg Hydrocodone Bitart/Acetaminophen (Pierz 325-5 Mg) 1 tab PO Q4H PRN PRN Reason: Pain (moderate 4-6) Aspirin (Halfprin) 81 mg PO DAILY [facility] Last Admin: 09/24/17 08:03 Dose: 81 mg Bisacodyl (Dulcolax) 5 mg PO DAILY PRN PRN Reason: Constipation Ceftriaxone Sodium (Rocephin) 1,000 mg IV Q24H [facility] Last Admin: 09/23/17 21:26 Dose: 1,000 mg Cetirizine HCl (Zyrtec) 10 mg PO DAILY PRN PRN Reason: Itching Cholecalciferol (Vitamin D3) 1,000 units PO DAILY [facility] Last Admin: 09/24/17 08:04 Dose: 1,000 units Docusate Sodium (Colace) 100 mg PO BID PRN PRN Reason: Constipation Enoxaparin Sodium (Lovenox) 30 mg SUBCUT Q24H [facility] Fish Oil (Fish Oil) 1 gm PO DAILY [facility] Last Admin: 09/24/17 08:03 Dose: 1 gm Fluticasone Propionate (Flonase) 0 gm ANJELICA BID PRN PRN Reason: Congestion Gabapentin (Neurontin) 300 mg PO BID [facility] Last Admin: 09/24/17 08:03 Dose: 300 mg Norepinephrine Bitartrate 4 mg (/ Dextrose/Water) 250 mls @ 7.5 mls/hr IV TITRATE JEWELL; 2 MCG/MIN PRN Reason: Protocol Last Titration: 09/22/17 18:45 Dose: 0 mcg/min, 0 mls/hr Vancomycin HCl 750 mg/Vancomycin HCl 500 mg/ Sodium Chloride 250 mls @ 167 mls/ hr IV Q24H [facility] Last Admin: 09/23/17 12:15 Dose: 167 mls/hr Levothyroxine Sodium (Levothyroxine) 112 mcg PO ACBREAKFAST [facility] Last Admin: 09/24/17 08:02 Dose: 112 mcg Melatonin (Melatonin) 3 mg PO BEDTIME [facility] Last Admin: 09/23/17 20:23 Dose: 3 mg Multivitamins/Minerals (Thera M Plus) 1 tab PO DAILY [facility] Last Admin: 09/24/17 08:04 Dose: 1 tab Ondansetron HCl (Zofran Odt) 4 mg PO Q4H PRN PRN Reason: nausea, able to take PO Ondansetron HCl (Zofran) 4 mg IV Q6H PRN PRN Reason: Nausea/Vomiting Senna/Docusate Sodium (Senna Plus) 1 tab PO BID [facility] Last Admin: 09/24/17 08:03 Dose: 1 tab Sertraline HCl (Zoloft) 50 mg PO BEDTIME [facility] Last Admin: 09/23/17 20:24 Dose: 50 mg Simvastatin (Zocor) 10 mg PO BEDTIME [facility] Last Admin: 09/23/17 20:23 Dose: 10 mg Sodium Chloride (Saline Flush) 10 ml FLUSH ASDIRECTED PRN PRN Reason: Keep Vein Open Last Admin: 09/23/17 21:26 Dose: 10 ml Temazepam (Restoril) 7.5 mg PO BEDTIME PRN PRN Reason: Sleep Vancomycin HCl (Pharmacy To Dose - Vancomycin) 0 dose .XX ASDIRECTED [facility] Discontinued Medications Amlodipine Besylate (Norvasc) 5 mg PO DAILY [facility] Last Admin: 09/22/17 16:03 Dose: Not Given Enoxaparin Sodium (Lovenox) 30 mg SUBCUT Q24H [facility] Last Admin: 09/22/17 02:09 Dose: Not Given Enoxaparin Sodium (Lovenox) 40 mg SUBCUT DAILY [facility] Enoxaparin Sodium (Lovenox) 30 mg SUBCUT Q24H [facility] Last Admin: 09/24/17 01:47 Dose: 30 mg Fluticasone Propionate (Flonase) 0 gm ANJELICA BID PRN PRN Reason: Congestion Furosemide (Lasix) 20 mg PO BIDDIURETIC [facility] Last Admin: 09/22/17 16:03 Dose: Not Given Ceftriaxone Sodium 1,000 mg/ (Sodium Chloride) 50 mls @ 100 mls/hr IV ONETIME ONE Stop: 09/21/17 22:01 Last Admin: 09/21/17 21:50 Dose: 100 mls/hr Sodium Chloride (Normal Saline) 1,000 mls @ 100 mls/hr IV ASDIRECTED [facility] Last Admin: 09/22/17 03:30 Dose: 100 mls/hr Ceftriaxone Sodium 1,000 mg/ (Sodium Chloride) 50 mls @ 100 mls/hr IV Q24H [facility] Sodium Chloride (Normal Saline) 500 mls @ 500 mls/hr IV .BOLUS ONE Stop: 09/21/17 23:37 Last Admin: 09/21/17 23:11 Dose: 500 mls/hr Sodium Chloride (Normal Saline) 1,000 mls @ 150 mls/hr IV ASDIRECTED [facility] Last Admin: 09/23/17 01:50 Dose: 150 mls/hr Lisinopril (Prinivil) 20 mg PO DAILY [facility] Last Admin: 09/22/17 16:03 Dose: Not Given Non-Formulary Medication (Aspirin [Halfprin]) 81 mg PO DAILY [facility] Potassium Chloride (Potassium Chloride Solution) 40 meq PO ONETIME ONE Stop: 09/22/17 02:40 Last Admin: 09/22/17 03:22 Dose: 40 meq - Exam General: Alert, Oriented, Cooperative Neck: Supple Lungs: Clear to Auscultation, Normal Respiratory Effort Cardiovascular: Regular Rate, Regular Rhythm, No Murmurs GI/Abdominal Exam: Soft, Non-Tender, No Distention Extremities: Other (Both knees of pain with range of motion. No swelling. Mild pain on palpation.) - Problem List & Annotations (1) Elevated troponin I level SNOMED Code(s): 931505487 Code(s): R74.8 - ABNORMAL LEVELS OF OTHER SERUM ENZYMES Status: Acute Current Visit: Yes (2) Hypotension SNOMED Code(s): 33008008 Code(s): I95.9 - HYPOTENSION, UNSPECIFIED Status: Acute Current Visit: Yes Qualifiers: Hypotension type: unspecified hypotension type Qualified Code(s): I95.9 - Hypotension, unspecified (3) Palliative care status SNOMED Code(s): 127421560 Code(s): Z51.5 - ENCOUNTER FOR PALLIATIVE CARE Status: Acute Current Visit: Yes (4) Sepsis SNOMED Code(s): 79834852 Code(s): A41.9 - SEPSIS, UNSPECIFIED ORGANISM Status: Acute Current Visit : Yes (5) UTI (urinary tract infection) SNOMED Code(s): 44662861 Code(s): N39.0 - URINARY TRACT INFECTION, SITE NOT SPECIFIED Status: Acute Current Visit: Yes Qualifiers: Encounter type: initial encounter (6) Delirium SNOMED Code(s): 3595601 Code(s): R41.0 - DISORIENTATION, UNSPECIFIED Status: Chronic Current Visit: Yes (7) Dizziness SNOMED Code(s): 071726043 Code(s): R42 - DIZZINESS AND GIDDINESS Status: Chronic Current Visit: Yes - Problem List Review Problem List Initiated/Reviewed/Updated: Yes - My Orders Last 24 Hours: My Active Orders 09/24/17 09:49 Consult to Occupational Therapy [OT Evaluation and Treatment] [CONS] Routine Consult to Physical Therapy [PT Evaluation and Treatment] [CONS] Routine - Plan Plan:: 1. Continue IV antibiotics until we have definitive cultures on his blood and urine. 2. PT/OT.
[2017-09-24] MEDS: Vancomycin 750 MG, Vancomycin 500 MG in Sodium Chloride 0.9% 250 ML IV SCH (12:09)
[2017-09-24] MEDS: Acetaminophen/HYDROcodone 325-5 MG Tab PO PRN ×2 (12:50→21:09)
[2017-09-24] MEDS: Sodium Chloride 0.9% 10 ML Syringe FLUSH PRN ×2 (13:50→22:08)
[2017-09-24] MEDS: Melatonin 3 MG Tab PO SCH (21:09)
[2017-09-24] MEDS: Sertraline 50 MG Tab PO SCH (21:09)
[2017-09-24] MEDS: Simvastatin 10 MG Tab PO SCH (21:09)
[2017-09-24] MEDS: cefTRIAXone 1,000 MG VIAL IV SCH (21:59)
[2017-09-25] MEDS: Levothyroxine 112 MCG Tab PO SCH (06:38)
[2017-09-25] MEDS ORDERED: Enoxaparin 30 MG/0.3 ML Syringe SUBCUT SCH (09:00)
[2017-09-25] MEDS: Aspirin 81 MG Tab.EC PO SCH (09:12)
[2017-09-25] MEDS: Fish Oil/Omega-3 Fatty Acids 1 Gm Cap PO SCH (09:12)
[2017-09-25] MEDS: Multivitamins with Iron/Calcium/Folic Acid/Minerals Tab PO SCH (09:13)
[2017-09-25] MEDS: Cholecalciferol (Vitamin D3) 1,000 Unit Tab PO SCH (09:13)
[2017-09-25] MEDS: Gabapentin 300 MG Cap PO SCH (09:13)
--- NOTE | 2017-09-25 09:39 | PCM.PN ---
- General Info Date of Service: 09/25/17 Admission Dx/Problem (Free Text): Patient has no complaints. She denies dysuria, pyuria, hematuria, fevers, chills , fatigue, chest pain, abdominal pain, diarrhea. She has bilateral knee pain but that's chronic. - Patient Data Vitals - Most Recent: Last Vital Signs Temp 97.4 F 09/25/17 04:00 Pulse 84 09/25/17 04:00 Resp 20 09/25/17 04:00 BP 136/74 09/25/17 04:00 Pulse Ox 95 09/25/17 04:00 Weight - Most Recent: 199 lb 4 oz I&O - Last 24 Hours: Intake & Output 09/24/17 09/25/17 09/25/17 22:59 06:59 14:59 Intake Total 150 Output Total 0 200 Balance 150 -200 Lab Results Last 24 Hours: Laboratory Results - last 24 hr 09/25/17 Range/Units 06:20 NT-Pro-B Natriuret Pep 74858 H* (<=450) pg/mL Med Orders - Current: Current Medications Acetaminophen (Tylenol) 650 mg PO Q4H PRN PRN Reason: Pain (Mild 1-3)/fever Last Admin: 09/23/17 18:52 Dose: 650 mg Hydrocodone Bitart/Acetaminophen ([place] 325-5 Mg) 1 tab PO Q4H PRN PRN Reason: Pain (moderate 4-6) Last Admin: 09/24/17 21:09 Dose: 1 tab Aspirin (Halfprin) 81 mg PO DAILY [facility] Last Admin: 09/25/17 09:12 Dose: 81 mg Bisacodyl (Dulcolax) 5 mg PO DAILY PRN PRN Reason: Constipation Ceftriaxone Sodium (Rocephin) 1,000 mg IV Q24H [facility] Last Admin: 09/24/17 21:59 Dose: 1,000 mg Cetirizine HCl (Zyrtec) 10 mg PO DAILY PRN PRN Reason: Itching Cholecalciferol (Vitamin D3) 1,000 units PO DAILY [facility] Last Admin: 09/25/17 09:13 Dose: 1,000 units Docusate Sodium (Colace) 100 mg PO BID PRN PRN Reason: Constipation Enoxaparin Sodium (Lovenox) 30 mg SUBCUT Q24H [facility] Last Admin: 09/25/17 09:13 Dose: 30 mg Fish Oil (Fish Oil) 1 gm PO DAILY [facility] Last Admin: 09/25/17 09:12 Dose: 1 gm Fluticasone Propionate (Flonase) 0 gm ANJELICA BID PRN PRN Reason: Congestion Gabapentin (Neurontin) 300 mg PO BID [facility] Last Admin: 09/25/17 09:13 Dose: 300 mg Norepinephrine Bitartrate 4 mg (/ Dextrose/Water) 250 mls @ 7.5 mls/hr IV TITRATE JEWELL; 2 MCG/MIN PRN Reason: Protocol Last Titration: 09/22/17 18:45 Dose: 0 mcg/min, 0 mls/hr Vancomycin HCl 750 mg/Vancomycin HCl 500 mg/ Sodium Chloride 250 mls @ 167 mls/ hr IV Q24H [facility] Last Admin: 09/24/17 12:09 Dose: 167 mls/hr Levothyroxine Sodium (Levothyroxine) 112 mcg PO ACBREAKFAST [facility] Last Admin: 09/25/17 06:38 Dose: 112 mcg Melatonin (Melatonin) 3 mg PO BEDTIME [facility] Last Admin: 09/24/17 21:09 Dose: 3 mg Multivitamins/Minerals (Thera M Plus) 1 tab PO DAILY [facility] Last Admin: 09/25/17 09:13 Dose: 1 tab Ondansetron HCl (Zofran Odt) 4 mg PO Q4H PRN PRN Reason: nausea, able to take PO Ondansetron HCl (Zofran) 4 mg IV Q6H PRN PRN Reason: Nausea/Vomiting Senna/Docusate Sodium (Senna Plus) 1 tab PO BID [facility] Last Admin: 09/25/17 09:12 Dose: 1 tab Sertraline HCl (Zoloft) 50 mg PO BEDTIME [facility] Last Admin: 09/24/17 21:09 Dose: 50 mg Simvastatin (Zocor) 10 mg PO BEDTIME [facility] Last Admin: 09/24/17 21:09 Dose: 10 mg Sodium Chloride (Saline Flush) 10 ml FLUSH ASDIRECTED PRN PRN Reason: Keep Vein Open Last Admin: 09/24/17 22:08 Dose: 10 ml Temazepam (Restoril) 7.5 mg PO BEDTIME PRN PRN Reason: Sleep Vancomycin HCl (Pharmacy To Dose - Vancomycin) 0 dose .XX ASDIRECTED [facility] Discontinued Medications Amlodipine Besylate (Norvasc) 5 mg PO DAILY [facility] Last Admin: 09/22/17 16:03 Dose: Not Given Enoxaparin Sodium (Lovenox) 30 mg SUBCUT Q24H [facility] Last Admin: 09/22/17 02:09 Dose: Not Given Enoxaparin Sodium (Lovenox) 40 mg SUBCUT DAILY [facility] Enoxaparin Sodium (Lovenox) 30 mg SUBCUT Q24H [facility] Last Admin: 09/24/17 01:47 Dose: 30 mg Fluticasone Propionate (Flonase) 0 gm ANJELICA BID PRN PRN Reason: Congestion Furosemide (Lasix) 20 mg PO BIDDIURETIC [facility] Last Admin: 09/22/17 16:03 Dose: Not Given Ceftriaxone Sodium 1,000 mg/ (Sodium Chloride) 50 mls @ 100 mls/hr IV ONETIME ONE Stop: 09/21/17 22:01 Last Admin: 09/21/17 21:50 Dose: 100 mls/hr Sodium Chloride (Normal Saline) 1,000 mls @ 100 mls/hr IV ASDIRECTED [facility] Last Admin: 09/22/17 03:30 Dose: 100 mls/hr Ceftriaxone Sodium 1,000 mg/ (Sodium Chloride) 50 mls @ 100 mls/hr IV Q24H [facility] Sodium Chloride (Normal Saline) 500 mls @ 500 mls/hr IV .BOLUS ONE Stop: 09/21/17 23:37 Last Admin: 09/21/17 23:11 Dose: 500 mls/hr Sodium Chloride (Normal Saline) 1,000 mls @ 150 mls/hr IV ASDIRECTED [facility] Last Admin: 09/23/17 01:50 Dose: 150 mls/hr Lisinopril (Prinivil) 20 mg PO DAILY [facility] Last Admin: 09/22/17 16:03 Dose: Not Given Non-Formulary Medication (Aspirin [Halfprin]) 81 mg PO DAILY [facility] Potassium Chloride (Potassium Chloride Solution) 40 meq PO ONETIME ONE Stop: 09/22/17 02:40 Last Admin: 09/22/17 03:22 Dose: 40 meq - Exam General: Alert, Oriented, Cooperative Neck: Supple Lungs: Clear to Auscultation, Normal Respiratory Effort Cardiovascular: Regular Rate, Regular Rhythm, No Murmurs GI/Abdominal Exam: Normal Bowel Sounds, Soft, Non-Tender, No Organomegaly, No Distention Extremities: No Pedal Edema - Problem List & Annotations (1) Elevated troponin I level SNOMED Code(s): 090294470 Code(s): R74.8 - ABNORMAL LEVELS OF OTHER SERUM ENZYMES Status: Acute Current Visit: Yes (2) Hypotension SNOMED Code(s): 91879667 Code(s): I95.9 - HYPOTENSION, UNSPECIFIED Status: Acute Current Visit: Yes Qualifiers: Hypotension type: unspecified hypotension type Qualified Code(s): I95.9 - Hypotension, unspecified (3) Palliative care status SNOMED Code(s): 559515545 Code(s): Z51.5 - ENCOUNTER FOR PALLIATIVE CARE Status: Acute Current Visit: Yes (4) Sepsis SNOMED Code(s): 29760360 Code(s): A41.9 - SEPSIS, UNSPECIFIED ORGANISM Status: Acute Current Visit : Yes (5) UTI (urinary tract infection) SNOMED Code(s): 44517661 Code(s): N39.0 - URINARY TRACT INFECTION, SITE NOT SPECIFIED Status: Acute Current Visit: Yes Qualifiers: Encounter type: initial encounter (6) Delirium SNOMED Code(s): 8769061 Code(s): R41.0 - DISORIENTATION, UNSPECIFIED Status: Chronic Current Visit: Yes (7) Dizziness SNOMED Code(s): 000653887 Code(s): R42 - DIZZINESS AND GIDDINESS Status: Chronic Current Visit: Yes - Problem List Review Problem List Initiated/Reviewed/Updated: Yes - My Orders Last 24 Hours: My Active Orders 09/24/17 09:49 Consult to Occupational Therapy [OT Evaluation and Treatment] [CONS] Routine Consult to Physical Therapy [PT Evaluation and Treatment] [CONS] Routine - Plan Plan:: 1. Urine grew Escherichia coli and the blood culture grew staph hominis. Reviewed the I and D. 2. Discharge patient to home on home health and onto antibiotics based on sensitivity. Sulfa and Levaquin.
[2017-09-25 09:46] VITALS: BP 146/81
--- NOTE | 2017-09-25 09:48 | PCM.DCSUM1 ---
Discharge Summary - Hospital Course Free Text/Narrative:: Patient was admitted to the ICU for sepsis and placed on Rocephin and vancomycin. Patient's urine was positive and one blood culture was positive. It end up growing Escherichia coli for the urine and staph hominis for the blood. Patient responded well to antibiotics and fluids and by the next day was much improved and by day 3 and 4 like insertions are bilaterally he pain that is chronic for her. Her white count was 16,000 went to normal. Her troponin was slightly elevated but most likely due to stress. ProBNP was elevated but she had no clinical signs of fluid overload. She'll be discharged today on home health and by mouth antibiotics with Levaquin and Bactrim to cover staph hominis and Escherichia coli. Brief History: I spoke with the daughter to obtain most of this history. I also spoke with your physician. Rosalia presented yesterday with delirium,confusion and unresponsiveness. She had earlier complained of chills and feeling cold and chills. She denies any urinary symptoms cough chest pain. She is chronically dizzy and has had presyncope thought to be due to aortic stenosis. She was seen last week by cardiology and there is plan for repair of the Severe Aaortic Stenosis sometime in October. She has hypertension and dementia that have been stable. She currently lives with her daughter Charity. - Discharge Data Discharge Date: 09/25/17 Discharge Disposition: Home, W Home Health Agency 06 Condition: Good - Discharge Diagnosis/Problem(s) (1) Elevated troponin I level SNOMED Code(s): 510118990 ICD Code: R74.8 - ABNORMAL LEVELS OF OTHER SERUM ENZYMES Status: Acute Current Visit: Yes (2) Hypotension SNOMED Code(s): 58195062 ICD Code: I95.9 - HYPOTENSION, UNSPECIFIED Status: Acute Current Visit: Yes Qualifiers: Hypotension type: unspecified hypotension type Qualified Code(s): I95.9 - Hypotension, unspecified (3) Palliative care status SNOMED Code(s): 846633554 ICD Code: Z51.5 - ENCOUNTER FOR PALLIATIVE CARE Status: Acute Current Visit: Yes (4) Sepsis SNOMED Code(s): 84449413 ICD Code: A41.9 - SEPSIS, UNSPECIFIED ORGANISM Status: Acute Current Visit: Yes (5) UTI (urinary tract infection) SNOMED Code(s): 23697726 ICD Code: N39.0 - URINARY TRACT INFECTION, SITE NOT SPECIFIED Status: Acute Current Visit: Yes Qualifiers: Encounter type: initial encounter (6) Delirium SNOMED Code(s): 1278762 ICD Code: R41.0 - DISORIENTATION, UNSPECIFIED Status: Chronic Current Visit: Yes (7) Dizziness SNOMED Code(s): 290751008 ICD Code: R42 - DIZZINESS AND GIDDINESS Status: Chronic Current Visit: Yes - Patient Summary/Data Consults: Consultations 09/24/17 09:49 Consult to Occupational Therapy [OT Evaluation and Treatment] [CONS] Routine Please Evaluate and Treat. OT Reason for Consult: Strengthening This query below is only for informational purposes and is not editable. Admission Diagnosis/Problem: Urosepsis Consult to Physical Therapy [PT Evaluation and Treatment] [CONS] Routine Please Evaluate and Treat. PT Reason for Consult: Strengthening This query below is only for informational purposes and is not editable. Admission Diagnosis/Problem: Urosepsis - Patient Instructions Diet: Regular Diet as Tolerated Driving: Do Not Drive Showering/Bathing: May Shower Notify Provider of: Fever, Increased Pain, Swelling and Redness, Drainage, Nausea and/or Vomiting Other/Special Instructions: 1. Recheck with Dr. Madden in 10-14 days. 2. Home health for medication training, disease training plus PT for bilateral knee pain. Home safety also. - Discharge Plan Prescriptions/Med Rec: Levofloxacin [Levaquin] 500 mg PO DAILY #10 tab Sulfamethoxazole/Trimethoprim [Bactrim Ds Tablet] 1 each PO BID #20 tablet Home Medications: Home Meds Cholecalciferol (Vitamin D3) [Vitamin D3] 1,000 unit PO DAILY 10/02/14 [History] Furosemide [Lasix] 20 mg PO 08,14 10/02/14 [History] Gabapentin [Neurontin] 300 mg PO BID 10/02/14 [History] Lisinopril 20 mg PO BEDTIME 10/02/14 [History] Multivitamin with Minerals [Multiple Vitamin] 1 tab PO DAILY 10/02/14 [History] Simvastatin [Zocor] 10 mg PO BEDTIME 10/02/14 [History] Aspirin [Halfprin] 81 mg PO BEDTIME 07/30/17 [History] Cetirizine [ZyrTEC] 10 mg PO DAILY 07/30/17 [History] Donepezil HCl 5 mg PO BEDTIME 07/30/17 [History] Fluticasone Propionate [Flonase] 1 spray NS BID PRN 07/30/17 [History] Levothyroxine 112 mcg PO DAILY 07/30/17 [History] Sennosides/Docusate Sodium [Senokot-S Tablet] 1 tab PO DAILY 07/30/17 [History] Sertraline HCl 50 mg PO BEDTIME 07/30/17 [History] amLODIPine [Norvasc] 5 mg PO DAILY 07/30/17 [History] Hydrocodone/Acetaminophen [Hydrocodon-Acetaminophen 5-325] 1 each PO Q4H PRN 03/02 [History] Naproxen Na-Diphenhydramin HCl [Aleve Pm Caplet] 1 each PO BEDTIME PRN 09/22/17 [History] Levofloxacin [Levaquin] 500 mg PO DAILY #10 tab 09/25/17 [Rx] Sulfamethoxazole/Trimethoprim [Bactrim Ds Tablet] 1 each PO BID #20 tablet 09/25 [Rx] Forms: ED Department Discharge Referrals: PCP,Unknown [Primary Care Provider] - - Patient Data Vitals - Most Recent: Last Vital Signs Temp 98 F 09/25/17 08:05 Pulse 84 09/25/17 08:05 Resp 18 09/25/17 08:05 BP 146/81 H 09/25/17 08:05 Pulse Ox 94 L 09/25/17 08:05 Weight - Most Recent: 199 lb 4 oz I&O - Last 24 hours: Intake & Output 09/24/17 09/25/17 09/25/17 22:59 06:59 14:59 Intake Total 150 Output Total 0 200 Balance 150 -200 Lab Results - Last 24 hrs: Laboratory Results - last 24 hr 09/25/17 Range/Units 06:20 NT-Pro-B Natriuret Pep 53090 H* (<=450) pg/mL Med Orders - Current: Current Medications Acetaminophen (Tylenol) 650 mg PO Q4H PRN PRN Reason: Pain (Mild 1-3)/fever Last Admin: 09/23/17 18:52 Dose: 650 mg Hydrocodone Bitart/Acetaminophen ([place] 325-5 Mg) 1 tab PO Q4H PRN PRN Reason: Pain (moderate 4-6) Last Admin: 09/24/17 21:09 Dose: 1 tab Aspirin (Halfprin) 81 mg PO DAILY [facility] Last Admin: 09/25/17 09:12 Dose: 81 mg Bisacodyl (Dulcolax) 5 mg PO DAILY PRN PRN Reason: Constipation Ceftriaxone Sodium (Rocephin) 1,000 mg IV Q24H [facility] Last Admin: 09/24/17 21:59 Dose: 1,000 mg Cetirizine HCl (Zyrtec) 10 mg PO DAILY PRN PRN Reason: Itching Cholecalciferol (Vitamin D3) 1,000 units PO DAILY [facility] Last Admin: 09/25/17 09:13 Dose: 1,000 units Docusate Sodium (Colace) 100 mg PO BID PRN PRN Reason: Constipation Enoxaparin Sodium (Lovenox) 30 mg SUBCUT Q24H [facility] Last Admin: 09/25/17 09:13 Dose: 30 mg Fish Oil (Fish Oil) 1 gm PO DAILY [facility] Last Admin: 09/25/17 09:12 Dose: 1 gm Fluticasone Propionate (Flonase) 0 gm ANJELICA BID PRN PRN Reason: Congestion Gabapentin (Neurontin) 300 mg PO BID [facility] Last Admin: 09/25/17 09:13 Dose: 300 mg Norepinephrine Bitartrate 4 mg (/ Dextrose/Water) 250 mls @ 7.5 mls/hr IV TITRATE JEWELL; 2 MCG/MIN PRN Reason: Protocol Last Titration: 09/22/17 18:45 Dose: 0 mcg/min, 0 mls/hr Vancomycin HCl 750 mg/Vancomycin HCl 500 mg/ Sodium Chloride 250 mls @ 167 mls/ hr IV Q24H [facility] Last Admin: 09/24/17 12:09 Dose: 167 mls/hr Levothyroxine Sodium (Levothyroxine) 112 mcg PO ACBREAKFAST [facility] Last Admin: 09/25/17 06:38 Dose: 112 mcg Melatonin (Melatonin) 3 mg PO BEDTIME [facility] Last Admin: 09/24/17 21:09 Dose: 3 mg Multivitamins/Minerals (Thera M Plus) 1 tab PO DAILY [facility] Last Admin: 09/25/17 09:13 Dose: 1 tab Ondansetron HCl (Zofran Odt) 4 mg PO Q4H PRN PRN Reason: nausea, able to take PO Ondansetron HCl (Zofran) 4 mg IV Q6H PRN PRN Reason: Nausea/Vomiting Senna/Docusate Sodium (Senna Plus) 1 tab PO BID [facility] Last Admin: 09/25/17 09:12 Dose: 1 tab Sertraline HCl (Zoloft) 50 mg PO BEDTIME [facility] Last Admin: 09/24/17 21:09 Dose: 50 mg Simvastatin (Zocor) 10 mg PO BEDTIME [facility] Last Admin: 09/24/17 21:09 Dose: 10 mg Sodium Chloride (Saline Flush) 10 ml FLUSH ASDIRECTED PRN PRN Reason: Keep Vein Open Last Admin: 09/24/17 22:08 Dose: 10 ml Temazepam (Restoril) 7.5 mg PO BEDTIME PRN PRN Reason: Sleep Vancomycin HCl (Pharmacy To Dose - Vancomycin) 0 dose .XX ASDIRECTED [facility] Discontinued Medications Amlodipine Besylate (Norvasc) 5 mg PO DAILY [facility] Last Admin: 09/22/17 16:03 Dose: Not Given Enoxaparin Sodium (Lovenox) 30 mg SUBCUT Q24H [facility] Last Admin: 09/22/17 02:09 Dose: Not Given Enoxaparin Sodium (Lovenox) 40 mg SUBCUT DAILY [facility] Enoxaparin Sodium (Lovenox) 30 mg SUBCUT Q24H [facility] Last Admin: 09/24/17 01:47 Dose: 30 mg Fluticasone Propionate (Flonase) 0 gm ANJELICA BID PRN PRN Reason: Congestion Furosemide (Lasix) 20 mg PO BIDDIURETIC [facility] Last Admin: 09/22/17 16:03 Dose: Not Given Ceftriaxone Sodium 1,000 mg/ (Sodium Chloride) 50 mls @ 100 mls/hr IV ONETIME ONE Stop: 09/21/17 22:01 Last Admin: 09/21/17 21:50 Dose: 100 mls/hr Sodium Chloride (Normal Saline) 1,000 mls @ 100 mls/hr IV ASDIRECTED [facility] Last Admin: 09/22/17 03:30 Dose: 100 mls/hr Ceftriaxone Sodium 1,000 mg/ (Sodium Chloride) 50 mls @ 100 mls/hr IV Q24H [facility] Sodium Chloride (Normal Saline) 500 mls @ 500 mls/hr IV .BOLUS ONE Stop: 02/06/18 23:37 Last Admin: 09/21/17 23:11 Dose: 500 mls/hr Sodium Chloride (Normal Saline) 1,000 mls @ 150 mls/hr IV ASDIRECTED [facility] Last Admin: 09/23/17 01:50 Dose: 150 mls/hr Lisinopril (Prinivil) 20 mg PO DAILY [facility] Last Admin: 09/22/17 16:03 Dose: Not Given Non-Formulary Medication (Aspirin [Halfprin]) 81 mg PO DAILY [facility] Potassium Chloride (Potassium Chloride Solution) 40 meq PO ONETIME ONE Stop: 09/22/17 02:40 Last Admin: 09/22/17 03:22 Dose: 40 meq *Q Meaningful Use (DIS) - VTE *Q VTE Criteria *Q: - Stroke *Q Stroke Criteria *Q: - AMI *Q AMI Criteria *Q:
[2017-09-25] MEDS: Acetaminophen 325 MG Tab PO PRN (10:51)
--- NOTE | 2017-09-25 11:30 | ER ---
DATE SEEN: 09/21/2017 PLAN: The patient will be admitted, treated for urosepsis, status discussed with Dr. Granados. Use norepinephrine if needed for blood pressure drops. /[id number] ROXANNE/BELLE
== END 2017-09-25 11:25 | disposition home health service (06) | DRG 872 ==
LOC: FB.ED 19:16 → FB.MS 21:36 → FB.ICU 22:41 → FB.MS 09-23 08:51
PROVIDERS: ADMIT Emergency Medicine; ATTEND Family Medicine
DX: A41.9 Sepsis, unspecified organism (principal); N39.0 Urinary tract infection, site not specified; B96.20 Unspecified Escherichia coli [E. coli] as the cause of diseases classified elsewhere; B95.7 Other staphylococcus as the cause of diseases classified elsewhere; R74.8 Abnormal levels of other serum enzymes; R41.0 Disorientation, unspecified; E87.6 Hypokalemia; I35.0 Nonrheumatic aortic (valve) stenosis; I10 Essential (primary) hypertension; F01.50 Vascular dementia, unspecified severity, without behavioral disturbance, psychotic disturbance, mood disturbance, and anxiety; E03.9 Hypothyroidism, unspecified; I95.9 Hypotension, unspecified; R42 Dizziness and giddiness; E78.00 Pure hypercholesterolemia, unspecified; M19.90 Unspecified osteoarthritis, unspecified site; Z51.5 Encounter for palliative care; M25.562 Pain in left knee; M25.561 Pain in right knee; Z79.82 Long term (current) use of aspirin; Z88.1 Allergy status to other antibiotic agents; Z91.040 Latex allergy status; Z88.0 Allergy status to penicillin; Z88.8 Allergy status to other drugs, medicaments and biological substances
CPT/HCPCS: 36415; 51702; 71045; 80048; 80053; 81001; 83605; 83880; 84484; 85025; 86140; 87040; 87086; 87088; 87186; 93005; 96365; 97161-GP; 97165-GO; 99284; 99285; A9270-GY; J0696; J1650; J3370; J7040; J7050; J7060

== ENCOUNTER 2017-11-12 10:12 | Inpatient (IN) | payer MEDICARE ==
[2017-11-12] MEDS: Acetaminophen/HYDROcodone 325-5 MG Tab PO PRN (20:01)
[2017-11-12] MEDS: Donepezil 5 MG Tab PO SCH (20:06)
[2017-11-12] MEDS: Gabapentin 300 MG Cap PO SCH (20:06)
[2017-11-12] MEDS: Simvastatin 10 MG Tab PO SCH (20:06)
[2017-11-12] MEDS: Sertraline 50 MG Tab PO SCH (20:07)
[2017-11-13] MEDS: Multivitamin Tab PO SCH (08:26)
[2017-11-13] MEDS: Levothyroxine 112 MCG Tab PO SCH (08:26)
[2017-11-13] MEDS: Aspirin 81 MG Tab.EC PO SCH (08:27)
[2017-11-13] MEDS: Furosemide 20 MG Tab PO SCH ×2 (08:27→14:16)
[2017-11-13] MEDS: Gabapentin 300 MG Cap PO SCH ×2 (08:27→21:53)
[2017-11-13] MEDS: Cholecalciferol (Vitamin D3) 1,000 Unit Tab PO SCH (08:27)
[2017-11-13] MEDS: Clopidogrel 75 MG Tab PO SCH (08:27)
[2017-11-13] MEDS: Lisinopril 10 MG Tab PO SCH (08:30)
[2017-11-13] MEDS: amLODIPine 5 MG Tab PO SCH (08:30)
[2017-11-13] MEDS: Acetaminophen/HYDROcodone 325-5 MG Tab PO PRN ×3 (09:38→21:52)
--- NOTE | 2017-11-13 12:49 | PN ---
DATE SEEN: 11/13/2017 SUBJECTIVE: Rosalia Koo is an 87-year-old female, in swing bed. She had transfemoral aortic valve replacement, doing well. Settling in, slept well, comfortable. OBJECTIVE: VITAL SIGNS: Stable. CHEST: Clear. HEART: Regular. ABDOMEN: Benign. ASSESSMENT: Rehab, valve replacement. PLAN: Medications, care, and treatment appropriate, intervention in place. /[id number] RUBY/BELLE
[2017-11-13] MEDS: Sertraline 50 MG Tab PO SCH (21:53)
[2017-11-13] MEDS: Simvastatin 10 MG Tab PO SCH (21:53)
[2017-11-13] MEDS: Donepezil 5 MG Tab PO SCH (21:53)
[2017-11-14] MEDS: Levothyroxine 112 MCG Tab PO SCH (08:01)
[2017-11-14] MEDS: Acetaminophen/HYDROcodone 325-5 MG Tab PO PRN ×2 (08:01→19:19)
[2017-11-14] MEDS: Clopidogrel 75 MG Tab PO SCH (08:01)
[2017-11-14] MEDS: Cholecalciferol (Vitamin D3) 1,000 Unit Tab PO SCH (08:01)
[2017-11-14] MEDS: Gabapentin 300 MG Cap PO SCH ×2 (08:02→20:52)
[2017-11-14] MEDS: Furosemide 20 MG Tab PO SCH ×2 (08:02→16:36)
[2017-11-14] MEDS: Multivitamin Tab PO SCH (08:03)
[2017-11-14] MEDS: Aspirin 81 MG Tab.EC PO SCH (08:03)
[2017-11-14] MEDS: Lisinopril 10 MG Tab PO SCH (09:45)
[2017-11-14] MEDS: amLODIPine 5 MG Tab PO SCH (09:45)
--- NOTE | 2017-11-14 12:27 | PN ---
DATE SEEN: 11/14/2017 SUBJECTIVE: Rosalia Koo is an 87-year-old female seen today for review. Had a transfemoral aortic valve replacement at [facility] in [place]. Dr. Oliva, provider of record. Doing well. Comfortable with her activity. Has some lightheadedness, a moderately low blood pressure, medications will be adjusted accordingly. LABORATORY DATA: None indicated. OBJECTIVE: VITAL SIGNS: Stable. 37 degrees, 80 is the pulse, blood pressure 106/56, 18 respirations, and 95%. GENERAL: In good spirits. NECK: Benign. Thyroid small. No JVD. CHEST: Clear in all lung steele. No adventitious sounds. HEART: On auscultation, without ectopy, soft murmur appreciated. ABDOMEN: Benign. : Surgical sites in both groins intact. ASSESSMENT: Rehab, status post aortic valve replacement. PLAN: Medications, care and treatment on board, complementary care. /[id number] RUBY/BELLE
[2017-11-14] MEDS: Donepezil 5 MG Tab PO SCH (20:52)
[2017-11-14] MEDS: Simvastatin 10 MG Tab PO SCH (20:52)
[2017-11-14] MEDS: Sertraline 50 MG Tab PO SCH (20:53)
[2017-11-15] MEDS: Acetaminophen/HYDROcodone 325-5 MG Tab PO PRN ×2 (05:10→12:55)
[2017-11-15] MEDS: Levothyroxine 112 MCG Tab PO SCH (06:29)
[2017-11-15] MEDS: Furosemide 20 MG Tab PO SCH ×2 (08:12→14:39)
[2017-11-15] MEDS: Clopidogrel 75 MG Tab PO SCH (08:14)
[2017-11-15] MEDS: Gabapentin 300 MG Cap PO SCH ×2 (08:14→20:03)
[2017-11-15] MEDS: Aspirin 81 MG Tab.EC PO SCH (08:14)
[2017-11-15] MEDS: Cholecalciferol (Vitamin D3) 1,000 Unit Tab PO SCH (08:14)
[2017-11-15] MEDS: Multivitamin Tab PO SCH (08:14)
--- NOTE | 2017-11-15 09:13 | HP ---
ADMISSION DATE: 11/12/2017 HISTORY OF PRESENT ILLNESS: Rosalia Koo is an 87-year-old female, resident of [place], [place], who was transferred from [facility] to [facility] for post cardiovascular interventional surgery. Doing well. Hospitalized at [facility] in [place] on 11/09/2017 to 11/12/2017 under the care of Jaspreet Yeager, PAC, and Dr. Clinton Oliva, Cardiology. Please see hospital records. She underwent a transfemoral aortic valve replacement due to significant aortic valve disease. Hospital course was without complications. Discharge in good condition. To [facility] for intervention. MEDICATIONS: Please see medication reconciliation list. PAST MEDICAL HISTORY: Significant for recent cardiovascular surgery. Ongoing medical problems include hypertension, hyperlipidemia, osteoarthritis, treated hypothyroidism, compensated congestive heart failure, and underlying COPD. No other operative procedures, hospitalizations, unusual childhood diseases, major injuries, or fractures. ALLERGIES: Allergic to penicillin, amitriptyline, Cipro, Lasix, Lipitor, meclizine, and Zithromax. Please see accompanying issues. SOCIAL HISTORY: Resides in [place], [place], for 2 years. Lives with her daughter. Never smoked. Nil alcohol consumption. No illicit drug use. REVIEW OF SYSTEMS: CONSTITUTIONAL: Feeling generally well. EYES: Sees well with correction. EARS: Some difficulty in crowds. OROPHARYNX: Intact dentition. No loose teeth. CHEST: No cough, wheeze, or congestion. CARDIOVASCULAR: Denies chest pain at present. GI: Regular predictable stools. : Good voiding pattern. SKIN: No open sores or lesions. ENDOCRINE: No excessive thirst or urination. ALLERGY: No chronic cough. PSYCHIATRIC: Mood is stable. Dementia in place. PHYSICAL EXAMINATION: VITAL SIGNS: Stable. GENERAL: Elderly, cooperative, conversant. HEENT: Revealed normal conjunctivae, bright tympanic membranes. Clear nasal discharge. Mouth and oropharynx are clear. Fair dentition, no loose teeth. NECK: Benign. Thyroid small. No adenopathy. CHEST: Clear in all lung steele. No adventitious sounds. HEART: Regular without ectopy or murmur. ABDOMEN: Benign. No hepatosplenomegaly. : Deferred. RECTAL: Deferred. EXTREMITIES: Well perfused. GROIN: Surgical sites intact. ASSESSMENT: [facility] admission for rehab purposes, status post transfemoral aortic valve replacement. PLAN: All looks well. Comfort measures in place. Pain is controlled. Medications reviewed and are timely and appropriate, good to go for intervention. /[id number] RUBY/BELLE CC: MD Jaspreet Alonso, PAC
--- NOTE | 2017-11-15 09:37 | PN ---
DATE SEEN: 11/15/2017 SUBJECTIVE: Rosalia Koo is a delightful 87-year-old female, in swing bed. She had a transfemoral aortic valve replacement. Doing well. Wounds are healing well. No complicating issues. Laboratory studies of no consequence. OBJECTIVE: VITAL SIGNS: Stable. 37, 80, and 106/56. CHEST: Clear. HEART: Regular. ABDOMEN: Benign. Groin sites intact. ASSESSMENT: Postoperative care, aortic valve replacement. PLAN: PT actively involved. Short-term stay expected. Returning to care with her daughter at their combined home. /[id number] RUBY/BELLE
[2017-11-15] MEDS: amLODIPine 5 MG Tab PO SCH (10:25)
[2017-11-15] MEDS: Lisinopril 10 MG Tab PO SCH (10:25)
[2017-11-15] MEDS: Simvastatin 10 MG Tab PO SCH (20:03)
[2017-11-15] MEDS: Sertraline 50 MG Tab PO SCH (20:03)
[2017-11-15] MEDS: Donepezil 5 MG Tab PO SCH (20:03)
[2017-11-16] MEDS: Acetaminophen/HYDROcodone 325-5 MG Tab PO PRN ×3 (01:04→15:51)
[2017-11-16] MEDS: Levothyroxine 112 MCG Tab PO SCH (06:38)
[2017-11-16] MEDS ORDERED: Magnesium Hydroxide 400 MG/5 ML Susp 30 ML Cup PO PRN (07:41)
[2017-11-16] MEDS: Clopidogrel 75 MG Tab PO SCH (08:16)
[2017-11-16] MEDS: Furosemide 20 MG Tab PO SCH ×2 (08:16→14:23)
[2017-11-16] MEDS: Gabapentin 300 MG Cap PO SCH ×2 (08:16→20:18)
[2017-11-16] MEDS: amLODIPine 5 MG Tab PO SCH (08:16)
[2017-11-16] MEDS: Aspirin 81 MG Tab.EC PO SCH (08:16)
[2017-11-16] MEDS: Multivitamin Tab PO SCH (08:17)
[2017-11-16] MEDS: Lisinopril 10 MG Tab PO SCH (08:17)
[2017-11-16] MEDS: Cholecalciferol (Vitamin D3) 1,000 Unit Tab PO SCH (08:17)
--- NOTE | 2017-11-16 12:51 | PN ---
DATE SEEN: 11/16/2017 SUBJECTIVE: Rosalia Koo is an 87-year-old female, in swing bed. Doing well. Recent transfemoral aortic valve replacement. Ambulation is improving. Activities as appropriate, cooperative with care. Normal outstanding laboratory studies. MEDICATIONS: Reviewed and appropriate. OBJECTIVE: CHEST: Clear. HEART: Regular. ABDOMEN: Benign. ASSESSMENT: Status post aortic valve replacement. PLAN: Comfort measures, therapy in place. Duration of stay, pending rehab services. /[id number] RUBY/BELLE
[2017-11-16] MEDS: Donepezil 5 MG Tab PO SCH (20:18)
[2017-11-16] MEDS: Simvastatin 10 MG Tab PO SCH (20:18)
[2017-11-16] MEDS: Sertraline 50 MG Tab PO SCH (20:19)
[2017-11-17] MEDS: Levothyroxine 112 MCG Tab PO SCH (06:43)
[2017-11-17] MEDS: Lisinopril 10 MG Tab PO SCH (08:48)
[2017-11-17] MEDS: Gabapentin 300 MG Cap PO SCH ×2 (08:48→20:24)
[2017-11-17] MEDS: amLODIPine 5 MG Tab PO SCH (08:48)
[2017-11-17] MEDS: Clopidogrel 75 MG Tab PO SCH (08:48)
[2017-11-17] MEDS: Furosemide 20 MG Tab PO SCH ×2 (08:48→13:42)
[2017-11-17] MEDS: Aspirin 81 MG Tab.EC PO SCH (08:48)
[2017-11-17] MEDS: Multivitamin Tab PO SCH (08:49)
[2017-11-17] MEDS: Cholecalciferol (Vitamin D3) 1,000 Unit Tab PO SCH (08:49)
[2017-11-17] MEDS: Acetaminophen/HYDROcodone 325-5 MG Tab PO PRN (09:40)
--- NOTE | 2017-11-17 11:51 | PN ---
DATE SEEN: 11/17/2017 Rosalia Koo is an 87-year-old female, in swing bed. Underwent transfemoral aortic valve replacement. Doing well. Progress PT/OT intervention, nursing complementary. Consideration for discharge on Wednesday, complementary care and well being. Wounds in her groin are healing without complication. No laboratory studies or intervention of significance. /[id number] RUBY/BELLE
--- OUTSIDE RECORDS SUMMARY | 2017-11-17 14:45 | XMSREPORT | Summary of Care ---
:1930 Author Organization Address [facility] [place] [address] Phone Care Team Providers Name Role Phone Nakul Granados MD Primary Care Provider Cristopher Madden MD Attributed Provider Reason for Visit Auth/Cert Status Reason Specialty Diagnoses / Procedures Referred By Contact Referred To Contact Diagnoses Nonrheumatic aortic (valve) stenosis Procedures (TAVR OLGA) REPLACE AORTIC VALVE PERQ Encounter Details Date Type Department Care Team Description 11/09/2017 - Hospital Encounter [facility] Lam Stallings MD [address] [place], [place] [id number] Aortic stenosis 11/12/2017 CENTER 6CD [facility] Betzaida Oliva, DO [address] [place], [place] [id number] [address] [place] [address] Allergies Active Allergy Reactions Severity Noted Date Comments Penicillin Rash 01/14/2012 Other: See Comments Hives (High), Rash High 01/14/2012 Surgical hose Amitriptyline Hcl Unknown/Not Verified 01/14/2012 Cipro Xr Nausea, Other 01/14/2012 Hot flashes (Specify in Comments) Latex Rash 01/14/2012 Atorvastatin Calcium Other (Specify in 01/14/2012 Arm numb Comments) Meclizine Hcl Dizziness 01/14/2012 Azithromycin Other (Specify in 10/02/2016 Unknown, Pharmacy Hydrogencitrate Comments) had listed as allergy as of this encounter Medications Prescription Sig. Disp. Refills Start End Date Status Date Misc. Devices 1 each as needed 1 each 0 Active (ROLLER WALKER) (use as needed 4 MISCIndications: for safe Vascular dementia ambulation). without behavioral disturbance, Dizziness, Osteoarthrosis, unspecified whether generalized or localized, lower leg Multiple Take 1 tablet by Active Vitamins-Minerals mouth 1 time per (MULTIVITAMIN day THERAPEUTIC WITH MINERALS) tablet gabapentin Take 1 capsule 180 capsule 1 Active (NEURONTIN) 300 mg (300 mg) by 7 capsuleIndications: mouth 2 times a Neuropathic pain day furosemide (LASIX) TAKE 1 TABLET 60 tablet 5 Active 20 mg (20MG TOTAL) BY 7 tabletIndications: MOUTH 2 TIMES A Peripheral edema DAY FOR EDEMA GENERIC LASIX amLODIPine (NORVASC) TAKE 1 TABLET BY 30 tablet 6 Active 5 mg MOUTH ONE TIME 7 tabletIndications: PER DAY GENERIC Essential NORVASC hypertension levothyroxine 112 TAKE 1 TABLET BY 90 tablet 3 Active mcg MOUTH 1 TIME A 7 tabletIndications: DAY H/O senile osteopenia, Acquired hypothyroidism simvastatin (ZOCOR) TAKE 1 TABLET BY 30 tablet 2 Active 10 mg MOUTH EVERY 7 tabletIndications: NIGHT AT BEDTIME Other hyperlipidemia GENERIC ZOCOR HYDROcodone-acetamin Take 1 tablet by 45 tablet 0 Active ophen (NORCO) 5-325 mouth every 6 7 mg hours as needed tabletIndications: for moderate Closed fracture of pain or severe neck of right femur, pain initial encounter fluticasone [place] 1 spray Active (FLONASE) 50 into each 7 mcg/spray nasal nostril 2 times sprayIndications: a day As needed Chronic seasonal for congestion allergic rhinitis due to pollen incontinence Disposable adult 180 each 3 Active supplies pullup diapers 8 MISCIndications: 6/day Urge incontinence of urine incontinence Disposable chux 50 each prn Active supplies pads 8 MISCIndications: Urge incontinence of urine donepezil (ARICEPT) TAKE 1 TABLET 30 tablet 2 Active 5 mg (5MG TOTAL) BY 8 tabletIndications: MOUTH EVERY Gradual-onset memory NIGHT AT BEDTIME impairment GENERIC FOR ARICEPT aspirin (ASPIRIN LOW Take 1 tablet 90 tablet 0 Active DOSE) 81 MG enteric (81 mg) by mouth 8 coated 1 time per day tabletIndications: Vascular dementia without behavioral disturbance cetirizine (ZYRTEC) TAKE 1 TABLET BY 30 tablet 2 Active 10 mg MOUTH ONE TIME A 8 tabletIndications: DAY NEEDED Mixed simple and FOR ITCHING mucopurulent chronic GENERIC FOR bronchitis ZYRTEC (CETIRIZINE) cholecalciferol TAKE 1 TABLET BY 90 tablet 0 Active (VITAMIN D-1000 MAX MOUTH 1 TIME PER ) 1000 UNITS DAY FOR BONE TABSIndications: H/O HEALTH senile osteopenia sertraline (ZOLOFT) TAKE 1 TABLET 90 tablet 0 Active 50 mg (50MG) BY MOUTH 8 tabletIndications: EVERY NIGHT AT Vascular dementia BEDTIME GENERIC without behavioral ZOLOFT disturbance clotrimazole-betamet Apply 1 1 Active hasone (LOTRISONE) application to 8 1-0.05 % cream affected area as needed for rash or itching lisinopril TAKE 1 TABLET 60 tablet 6 Active (PRINIVIL, ZESTRIL) DAILY TO CONTROL 8 10 mg BLOOD PRESSURE tabletIndications: IN A.M. Essential hypertension clopidogrel (PLAVIX) Take 1 tablet 90 tablet 0 Active 75 mg (75 mg) by mouth 8 tabletIndications: 1 time per day S/p TAVR (transcatheter aortic valve replacement), bioprosthetic lisinopril TAKE 2 TABLETS 60 tablet 6 11/13/19 Suspended (PRINIVIL, ZESTRIL) DAILY TO CONTROL 7 18 10 mg BLOOD PRESSURE tabletIndications: IN A.M. Essential hypertension clopidogrel (PLAVIX) Take 1 tablet 90 tablet 0 11/13/19 Discontinued 75 mg (75 mg) by mouth 8 18 tabletIndications: 1 time per day S/p TAVR (transcatheter aortic valve replacement), bioprosthetic as of this encounter Active Problems Problem Noted Date S/p TAVR (transcatheter aortic valve replacement), bioprosthetic 11/12/2017 Aortic stenosis 11/09/2017 Femur neck fracture 07/26/2017 Seborrheic keratoses 01/01/2017 Seasonal allergic rhinitis due to pollen 01/01/2017 Bilateral impacted cerumen 01/01/2017 Carotid artery stenosis 02/06/2016 Impaired functional mobility, balance, gait, and endurance 01/16/2015 Obesity (BMI 30.0-34.9) 01/16/2015 Hypersomnolence disorder 09/26/2014 Urinary, incontinence, stress female 09/26/2014 Vascular dementia without behavioral disturbance 06/12/2014 Gradual-onset memory impairment 03/21/2014 Heart murmur, systolic 08/14/2013 Cardiomegaly 08/14/2013 Peripheral edema 06/13/2013 Dizziness 04/06/2013 COPD (chronic obstructive pulmonary disease) 03/23/2013 Pulmonary hypertension 03/23/2013 Hypothyroidism 11/12/2005 Esophageal reflux 09/28/2005 Constipation 09/28/2005 Other hyperlipidemia 09/28/2005 Essential hypertension Osteoarthrosis involving lower leg Gastritis and gastroduodenitis Heart failure, diastolic, chronic Leg cramps as of this encounter Resolved Problems Problem Noted Date Resolved Date Contusion, knee and lower leg 12/30/2015 02/10/2016 Contusion of left hip 12/30/2015 02/10/2016 Lightheadedness 09/26/2014 02/06/2016 Greater trochanteric bursitis of left hip 12/06/2013 01/16/2015 Tinea corporis 06/13/2013 01/16/2015 Overview: Inframammary breast crease bilaterally Dizziness and giddiness 04/06/2013 Aortic stenosis, moderate 05/31/2017 as of this encounter Immunizations Name Dates Previously Given Next Due FLU VACCINE TRIVALENT 06/09/2013 MULTIDOSE(Fluvirin,Afluria) FLU VACCINE HIGH DOSE 65YR+ 05/19/2014 FLU VACCINE HIGH DOSE 65YR+(Fluzone) 05/19/2017, 05/24/2015 FLU VACCINE SINGLE 05/19/2016 DOSE(3YR+Fluarix/Fluzone;6MO+Flulaval;18 yr+Afluria) Influenza Vaccine,unspecified 05/04/2012, 05/19/2011, 05/06/2010, 05/08/2009, 05/21/2008, 05/23/2007, 06/02/2006 Pneumococcal Conj PCV13 03/02/2016 Pneumococcal Polysaccharide PPSV23 04/16/2000 TDAP 06/26/2014 Zoster Live(Zostavax) 07/12/2012 as of this encounter Social History Tobacco Use Types Packs/Day Years Used Date Never Smoker Smokeless Tobacco: Never Used Comments: former passive smoke exposure Alcohol Use Drinks/Week oz/Week Comments No 0 Standard drinks or equivalent 0.0 none Sex Assigned at Date Recorded Not on file as of this encounter Last Filed Vital Signs Vital Sign Reading Time Taken Blood Pressure 118/61 11/12/2017 7:21 AM CDT Pulse 76 11/12/2017 7:21 AM CDT Temperature 36.6 C (97.8 F) 11/12/2017 7:21 AM CDT Respiratory Rate 16 11/12/2017 7:21 AM CDT Oxygen Saturation 95% 11/12/2017 7:21 AM CDT Inhaled Oxygen Concentration - - Weight 80.2 kg (176 lb 12.8 oz) 11/12/2017 7:00 AM CDT Height 170.2 cm (5' 7") 11/09/2017 5:57 AM CDT Body Mass Index 27.69 11/12/2017 7:00 AM CDT in this encounter Functional Status Functional Status Response Date of Assessment Is the person deaf or does he/she have serious difficulty No 11/05/2017 hearing? Is this person blind or does he/she have difficulty No 11/05/2017 seeing even when wearing glasses? Do you have difficulty with walking, balance, climbing Yes 11/09/2017 stairs, or had a fall in the last 3 months? Does the patient have difficulty dressing or bathing? Yes 11/09/2017 Because of a physical, mental, or emotional condition; Yes 11/09/2017 does this person have difficulty doing errands alone such as visiting a doctor's office or shopping? Cognitive Status Response Date of Assessment Because of a physical, mental, or emotional condition; Yes 11/09/2017 does this person have serious difficulty concentrating, remembering, or making decisions? as of this encounter Progress Notes Jaspreet Yeager PA-C - 11/11/2017 3:24 PM CDTFormatting of this note may be different from the original. Interventional cardiology progress note POST OP DAY # 2 s/p 23 mm Moose 3 valve Transfemoral Aortic Valve Implantation Subjective: Yoli Contreras is awake and alert. Denies chest pain. Groin sites are CDI. The patient is still quite weak and requiring assistance with transfers, toileting, and ambulation. PT recommending short term assisted until patient becomes stronger and more independent. Temporary Pacemaker: has been removed EXAM: Current Vital Signs Temp: 97.8 F (36.6 C) BP: 120/60 Pulse: 89 O2 Device: Room Air O2 Flow Rate (L/min): 2 l/min Resp: 16 Pain Ratin (out of 10) Weight: 84 kg (185 lb 1.6 oz) SpO2: 96 % General Appearance: alert, well appearing, and in no distress Neck: supple, no significant adenopathy Chest: clear to auscultation, no wheezes, rales or rhonchi, symmetric air entry Heart: normal rate, regular rhythm, normal S1, S2, no murmurs, rubs, clicks or gallops Abdomen: soft, nontender, nondistended, no masses or organomegaly Neurological: alert, oriented, normal speech, no focal findings or movement disorder noted Extremities: peripheral pulses normal, no pedal edema, no clubbing or cyanosis Skin: normal coloration and turgor, no rashes, no suspicious skin lesions noted Lab Results Component Value Date POTASSIUM 3.7 11/10/2017 GLUCOSE 114 (H) 11/10/2017 CREATSERUM 0.81 11/10/2017 BUN 13 11/10/2017 Lab Results Component Value Date WBC 9.5 11/08/2017 RBC 4.27 11/08/2017 HEMOGLOBIN 11.7 11/10/2017 HEMATOCRIT 33.0 (L) 11/09/2017 MCV 90.9 11/08/2017 MCH 29.0 11/08/2017 MCHC 32.0 11/08/2017 PLTCOUNT 258 11/08/2017 NEUTROPCT 69.9 11/08/2017 LYMPHSPCT 19.5 11/08/2017 MONOSPCT 8.2 11/08/2017 EOSPCT 2.0 11/08/2017 BASOPHILPCT 0.4 11/08/2017 Lab Results Component Value Date CK 39 12/11/2015 TROPONINI 0.203 (H) 11/10/2017 Lab Results Component Value Date INR 1.1 (L) 11/08/2017 PT 13.4 11/08/2017 Lab Results Component Value Date CHOLESTEROL 207 (H) 02/12/2017 CHOLESTEROL 195 09/28/2014 CHOLESTEROL 177 06/27/2014 TRIGLYCERIDE 226 (H) 02/12/2017 TRIGLYCERIDE 215 (H) 09/28/2014 TRIGLYCERIDE 184 (H) 06/27/2014 HDLCHOL 48 02/12/2017 HDLCHOL 50 09/28/2014 HDLCHOL 51 06/27/2014 LDL 114 02/12/2017 LDL 102 09/28/2014 LDL 89 06/27/2014 EKG: appears normal, NSR Echo: Conclusions Normal left ventricular systolic function. The ejection fraction is visually estimated to be 65 %. Grade 1 left ventricular diastolic dysfunction (abnormal relaxation). A(n) normal 23 mm [place] MOOSE 3 aortic bioprosthesis is present. No prosthetic aortic valve stenosis. No significant aortic transvalvular regurgitation. No significant aortic perivalvular regurgitation. Aortic valve mean gradient is 16 mmHg. Mitral valve mean gradient is 5 mmHg. Mild pulmonary artery hypertension. Pulmonary artery systolic pressure is measured at 42 mmHg. Labs/imaging reviewed IMPRESSION/PLAN Active Hospital Problems Diagnosis Date Noted Aortic stenosis 11/09/2017 Resolved Hospital Problems Diagnosis Date Noted Date Resolved No resolved problems to display. Plan: 1. Severe Aortic stenosis presenting with syncope S/p Transfemoral Aortic Valve Implantation. Patient is doing well. Continue Clopidogrel (Plavix) x 3 months and Aspirin. 2. Hypertension - lisinopril dose decrease to 10 mg daily due to low BP's. Will continue to monitor. 3. No CAD on [facility] in December 2015 4. Chronic diastolic heart failure - no evidence of fluid overload. On Lasix 40 mg daily. 5. Anticipate discharge Sunday 11/12 pending placement in TCU/swingbed. Family prefers [facility]. Jaspreet Yeager PA-C Interventional cardiology Lou Stewart PA-C - 11/10/2017 8:49 AM CDTFormatting of this note may be different from the original. Interventional cardiology progress note POST OP DAY # 1 s/p 23 mm Moose 3 valve Transfemoral Aortic Valve Implantation Subjective: Yoli Contreras is awake and alert. denies chest pain and shortness of breath. denies any significant pain or swelling in her groin. Patient has been ambulating in the room. Patient is tolerating oral intake. Urine output is adequate. Temporary Pacemaker: has been removed EXAM: Current Vital Signs Temp: 98.1 F (36.7 C) BP: 130/55 Pulse: 79 O2 Device: Room Air O2 Flow Rate (L/min): 2 l/min Resp: 12 Pain Ratin (out of 10) Weight: 87.8 kg (193 lb 9 oz) SpO2: 96 % General Appearance: alert, well appearing, and in no distress Neck: supple, no significant adenopathy Chest: clear to auscultation, no wheezes, rales or rhonchi, symmetric air entry Heart: normal rate, regular rhythm, normal S1, S2, no murmurs, rubs, clicks or gallops Abdomen: soft, nontender, nondistended, no masses or organomegaly Neurological: alert, oriented, normal speech, no focal findings or movement disorder noted Extremities: peripheral pulses normal, no pedal edema, no clubbing or cyanosis Skin: normal coloration and turgor, no rashes, no suspicious skin lesions noted Lab Results Component Value Date POTASSIUM 3.7 11/10/2017 GLUCOSE 114 (H) 11/10/2017 CREATSERUM 0.81 11/10/2017 BUN 13 11/10/2017 Lab Results Component Value Date WBC 9.5 11/08/2017 RBC 4.27 11/08/2017 HEMOGLOBIN 10.6 (L) 11/09/2017 HEMATOCRIT 33.0 (L) 11/09/2017 MCV 90.9 11/08/2017 MCH 29.0 11/08/2017 MCHC 32.0 11/08/2017 PLTCOUNT 258 11/08/2017 NEUTROPCT 69.9 11/08/2017 LYMPHSPCT 19.5 11/08/2017 MONOSPCT 8.2 11/08/2017 EOSPCT 2.0 11/08/2017 BASOPHILPCT 0.4 11/08/2017 Lab Results Component Value Date CK 39 12/11/2015 TROPONINI 0.203 (H) 11/10/2017 Lab Results Component Value Date INR 1.1 (L) 11/08/2017 PT 13.4 11/08/2017 Lab Results Component Value Date CHOLESTEROL 207 (H) 02/12/2017 CHOLESTEROL 195 09/28/2014 CHOLESTEROL 177 06/27/2014 TRIGLYCERIDE 226 (H) 02/12/2017 TRIGLYCERIDE 215 (H) 09/28/2014 TRIGLYCERIDE 184 (H) 06/27/2014 HDLCHOL 48 02/12/2017 HDLCHOL 50 09/28/2014 HDLCHOL 51 06/27/2014 LDL 114 02/12/2017 LDL 102 09/28/2014 LDL 89 06/27/2014 EKG: appears normal, NSR Echo: Conclusions Normal left ventricular systolic function. The ejection fraction is visually estimated to be 65 %. Grade 1 left ventricular diastolic dysfunction (abnormal relaxation). A(n) normal 23 mm [place] MOOSE 3 aortic bioprosthesis is present. No prosthetic aortic valve stenosis. No significant aortic transvalvular regurgitation. No significant aortic perivalvular regurgitation. Aortic valve mean gradient is 16 mmHg. Mitral valve mean gradient is 5 mmHg. Mild pulmonary artery hypertension. Pulmonary artery systolic pressure is measured at 42 mmHg. Labs/imaging reviewed IMPRESSION/PLAN Active Hospital Problems Diagnosis Date Noted Aortic stenosis 11/09/2017 Resolved Hospital Problems Diagnosis Date Noted Date Resolved No resolved problems to display. Plan: 1. Severe Aortic stenosis presenting with syncope S/p Transfemoral Aortic Valve Implantation. Patient is doing well. Continue Clopidogrel (Plavix) x 3 months and Aspirin. 2. Hypertension - slightly low today. May reduce Lisinopril. 3. No CAD on [facility] in December 2015 4. Chronic diastolic heart failure - no evidence of fluid overload. On Lasix 40 mg daily. 5. Transfer to floor. Continue Telemetry. Remove arterial line. Remove central line. Lou Stewart PA-C Interventional cardiology Shania Tavares [facility] - 11/09/2017 6:23 AM CD11/09/2017 06:23 - Patient was seen by pharmacy med reconciliation team. HOME MEDICATIONS have been reconciled and updated to match the patient's home usage. Shania Tavares, PharmD. in this encounter Plan of Treatment Date Type Specialty Care Team Description 11/19/2017 Office Visit Family Practice Nakul Granados MD [address] [place] [address] [phone] 12/10/2017 Office Visit CARDIOLOGY Betzaida Oliva DO [address] [place] [address] [phone] Name Priority Associated Diagnoses Order Schedule COLLECT AND HOLD LAVENDER Routine Once for 1 Occurrences (EDTA) TOP TUBE starting 11/10/2017 until 11/10/2017 EKG 12 LEAD Routine S/p TAVR (transcatheter Expected: 12/12/2017 aortic valve replacement), (Approximate), Expires: bioprosthetic 12/13/2018 ECHO ADULT COMPLETE Routine S/p TAVR (transcatheter Expected: 12/12/2017 aortic valve replacement), (Approximate), Expires: bioprosthetic 12/13/2018 BASIC METABOLIC PANEL Routine S/p TAVR (transcatheter Expected: 12/27/2017 aortic valve replacement), (Approximate), Expires: bioprosthetic 12/13/2018 COMPLETE BLOOD COUNT Routine S/p TAVR (transcatheter Expected: 12/27/2017 WITHOUT DIFFERENTIAL aortic valve replacement), (Approximate), Expires: bioprosthetic 12/13/2018 Health Maintenance Due Date Last Done Comments Mammogram 05/27/2011 05/27/2010 (Previously completed) Zoster Vaccine (2 of 3 - Mixed 09/06/2012 07/12/2012 Series (ZVL first) - RZV,Shingrix) Colonoscopy 06/15/2018 06/15/2008 (Previously completed) Diabetes Screening 11/10/2020 11/10/2017, 11/09/2017, 11/09/2017, Additional history exists Tetanus Vaccine 06/26/2024 06/26/2014 DEXA/Heel Scan 07/11/2029 07/11/2014 (Previously completed), 07/11/2014 Pneumococcal 65yr+ Low/Med Risk Completed 03/02/2016, 04/16/2000 Influenza Vaccine Completed 05/19/2017, 05/19/2016, 05/24/2015, Additional history exists as of this encounter Implants Implanted Type Area [employer] Intern[employer] Device Expiration Model / Identifier Date Serial / Lot Nail Tfna Ti 125d [id number] N 04.037.212s Ea - [id number] Right: J&J DEPCityHawk [id number] / Implanted: Qty: 1 on 07/27/2017 by Arya Barrera MD FEMUR / Blade Hel Tfna Ti 100mm N 04.038.300 Ea - [id number] Right: J&J DEPUY SYNTHES 04.038.300 / Implanted: Qty: 1 on 07/27/2017 by Arya Barrera MD FEMUR / Screw Lk Ti Nail 5x36mm N 04.005.526 Ea - [id number] Right: J&J DEPUY SYNTHES [id number] / Implanted: Qty: 1 on 07/27/2017 by Arya Barrera MD FEMUR / as of this encounter Procedures Procedure Name Priority Date/Time Associated Comments Diagnosis HEMOGLOBIN ISREAL 11/10/2017 1:00 Results for this PM CDT procedure are in the results section. PTT Routine 11/10/2017 6:53 Results for this AM CDT procedure are in the results section. TROPONIN I Routine 11/10/2017 6:53 Results for this AM CDT procedure are in the results section. BASIC METABOLIC Routine 11/10/2017 6:53 Results for this PANEL AM CDT procedure are in the results section. HEMOGLOBIN Timed Routine 11/09/2017 10:32 Results for this PM CDT procedure are in the results section. HEMOGLOBIN Timed Routine 11/09/2017 3:35 Results for this PM CDT procedure are in the results section. HEMOGLOBIN Timed Routine 11/09/2017 9:45 Results for this AM CDT procedure are in the results section. OR PANEL 1 POCT Routine 11/09/2017 9:03 Results for this AM CDT procedure are in the results section. HEPARIN ASSAY Routine 11/09/2017 9:02 Results for this AM CDT procedure are in the results section. ACTIVATED CLOTTING Routine 11/09/2017 9:02 Results for this TIME POCT AM CDT procedure are in the results section. HEPARIN ASSAY Routine 11/09/2017 8:46 Results for this AM CDT procedure are in the results section. ACTIVATED CLOTTING Routine 11/09/2017 8:39 Results for this TIME POCT AM CDT procedure are in the results section. ACTIVATED CLOTTING Routine 11/09/2017 8:31 Results for this TIME POCT AM CDT procedure are in the results section. OR PANEL 1 POCT Routine 11/09/2017 7:59 Results for this AM CDT procedure are in the results section. ACTIVATED CLOTTING Routine 11/09/2017 7:59 Results for this TIME POCT AM CDT procedure are in the results section. PREPARE AND HOLD Routine 11/09/2017 6:30 Results for this RED BLOOD CELLS - AM CDT procedure are in BLOOD BANK the results section. in this encounter Results HEMOGLOBIN (11/10/2017 1:00 PM) Component Value Ref Range Hemoglobin 11.7 11.5 - 15.8 g/dL Specimen Performing Laboratory Blood [address] [place] [address] ECHO ADULT COMPLETE (11/10/2017 7:47 AM) Narrative Patient: YOLI CONTRERAS MR#:[id number] Exam Date:11/10/2017 Transthoracic Echocardiogram [facility] [address] Fina Nance [id number] : 132 /60 mmHg HR:84 bpm : 1930Exam Location:Bedside Height:67.00 "(170.2 cm) Age: 87 year(s)Patient Room: [facility] 01Weight:185 lbs.( 83.92 kg) Gender:FemalePatient Status: Inpatient BSA: 1.96 m2 Ordering Physician: Betzaida Oliva DO Reading Physician:Kale Walton MD Credit Risk Officer:Triston Reveles RDCS Procedure Indication(s):S/P OLGA Examination:TTE Complete 2D(m-mode) , Complete Spectral Doppler, Color Doppler Exam Comments Dr. Walton notified at 0935 Conclusions Normal left ventricular systolic function. The ejection fraction is visually estimated to be 65 %. Grade 1 left ventricular diastolic dysfunction (abnormal relaxation). A(n) normal 23 mm [place] MOOSE 3 aortic bioprosthesis is present. No prosthetic aortic valve stenosis. No significant aortic transvalvular regurgitation. No significant aortic perivalvular regurgitation. Aortic valve mean gradient is 16 mmHg. Mitral valve mean gradient is 5 mmHg. Mild pulmonary artery hypertension. Pulmonary artery systolic pressure is measured at 42 mmHg. Comparison Study Comparison Date: 11/09/2017 Comparison Study: Transthoracic Echocardiogram Aortic mean pressure gradient has increased from 7 mmHg Findings Left Ventricle: Normal left ventricular size. Normal left ventricular wall thickness. Normal left ventricular systolic function. The ejection fraction is visually estimated to be 65 %. There are no left ventricular regional wall motion abnormalities. Grade 1 left ventricular diastolic dysfunction (abnormal relaxation). Aortic Valve: A(n) normal 23 mm [place] MOOSE 3 aortic bioprosthesis is present. No prosthetic aortic valve stenosis. No significant aortic transvalvular regurgitation. No significant aortic perivalvular regurgitation. Increased velocity through aortic valve likely due to increased flow. Aortic valve mean gradient is 16 mmHg. Estimated aortic valve area (by VTI) is 2.1 cm-sq. Aortic valve acceleration time is 63 ms. Aorta: The ascending aorta is normal in size measuring 35.0 mm. Mitral Valve: Mild mitral leaflet thickening. [id number] mitral annular calcification. Increased velocity through mitral valve likely due to increased flow. Trivial mitral regurgitation. Mitral valve mean gradient is 5 mmHg. Left Atrium: Markedly dilated left atrium. Pulmonic Valve: Normal pulmonary valve structure. No significant pulmonary regurgitation. IAS: No gross evidence of shunt flow seen; however the possibility of a PFO cannot be completely ruled out. Right Ventricle: Normal right ventricular size. Normal right ventricular systolic function. Normal right ventricular wall thickness. TAPSE measures 21 mm. Pulmonary Artery: Mild pulmonary artery hypertension. Pulmonary artery systolic pressure is measured at 42 mmHg. Tricuspid Valve: Normal tricuspid valve structure. Trivial tricuspid regurgitation. Right Atrium: Normal right atrial size. IVC: Normal IVC size with normal respirophasic changes. Pericardium: No significant pericardial effusion. Measurements 2D Measurements Doppler Measurements Left Ventricle Normal ValuesAortic Valve Normal Values IVSd (2D):10.1 mm6 mm-10 mm ROB (VTI) (cw): 2.1 cm-sq3 cm-sq-4 cm-sq LVDd (2D):48.2 mm 38 mm-52 mmAVA (Vmax) (cw):2.0 cm-sq3 cm-sq-4 cm-sq LVDs (2D):37.8 mm 21 mm-40 mmAV VTI (cw): 48.60 cm LVPWd (2D): 9.4 mm AV Vmax (cw): 258 cm/s LVSV: 48 ml AV Vmean (cw):171 cm/s LVEDV:109 ml AV max Gradient(cw):27 mmHg LVEDV Index:55.6ml/m-sq AV mean Gradient (cw):16 mmHg LVESV:61 ml LVOTd:21 mm LVESV Index:31.1ml/m-sq LVOT Vmax:151 cm/s FS (2D):22 % LVOT maxP mmHg LVOT Stroke Volume: 103 ml Kade ral Valve LVOT VTI: 29.70 MV Dec Time (pw): 330 msec Cardiac Output: 8.65 L/min MV A Vmax(cw):125 cm/s Cardiac Index:4.41 L/min/m-sq MV E Vmax (cw): 108 cm/s Stroke Index: 52.55 ml/m-sq MV E/A (pw):0.86 Right Ventricle MV VTI (pw):38.90 cm TAPSE:21 mm MV max Gradient (pw): 9 mmHg Left Atrium MV mean Gradient (pw): 5 mmHg LA Vol Index: 49.0 ml/m-sq 16 ml/m- sq-34 ml/m-sqMVA (VTI):2.6 cm -sq LADs lon mm 19 mm-40 mmMVA (Vmax): 2.6 cm-sq Right Atrium MV E' septal (pw):0.1cm/s IVC:17 mm12 mm-21 mmMV E' lateral (pw): 0.1 LVOT MV E/E' septal (pw):15.80 LVOTd:21 mm MV E/E' lateral (pw): 10.60 RVOT Tricuspid Valve Aorta TR Vmax (cw): 314 cm/s Ascend: 35.0 mm TR max Gradient (cw): 39 mmHg Heart Rate Pulmonic Valve HR: 84 bpm PV Vmax (cw): 99 cm/s PV max Gradient:4 mmHg Right Atrium RA Pressure (pw): 3mmHg Right Ventricle RVSP: 42 mmHg0 mmHg-40 mmHg Pulmonary Artery Pulmonary Veins PVein A (pw): 30 cm/s PVein S (pw): 50 cm/s PVein D (pw): 46 cm/s PVein S/D Ratio:1.10 (No Signature Object) Procedure Note Interface, Inc Results No Pull Forward - 11/10/2017 10:49 AM CDT Patient: YOLI CONTRERAS MR#: [id number] Exam Date: 11/10/2017 Transthoracic Echocardiogram [facility] [address] [place] [address] BP: 132/60 mmHg HR: 84 bpm : 1930 Exam Location: Bedside Height: 67.00 "(170.2 cm) Age: 87 year(s) Patient Room: [facility] Weight: 185 lbs.(83.92 kg) Gender: Female Patient Status: Inpatient BSA: 1.96 m2 Ordering Physician: Betzaida Oliva DO Reading Physician: Kale Walton MD Credit Risk Officer: Triston Reveles RD Procedure Indication(s): S/P OLGA Examination: TTE Complete 2D(m-mode), Complete Spectral Doppler, Color Doppler Exam Comments Dr. Walton notified at 0935 Conclusions Normal left ventricular systolic function. The ejection fraction is visually estimated to be 65 %. Grade 1 left ventricular diastolic dysfunction (abnormal relaxation). A(n) normal 23 mm [place] MOOSE 3 aortic bioprosthesis is present. No prosthetic aortic valve stenosis. No significant aortic transvalvular regurgitation. No significant aortic perivalvular regurgitation. Aortic valve mean gradient is 16 mmHg. Mitral valve mean gradient is 5 mmHg. Mild pulmonary artery hypertension. Pulmonary artery systolic pressure is measured at 42 mmHg. Comparison Study Comparison Date: 11/09/2017 Comparison Study: Transthoracic Echocardiogram Aortic mean pressure gradient has increased from 7 mmHg Findings Left Ventricle: Normal left ventricular size. Normal left ventricular wall thickness. Normal left ventricular systolic function. The ejection fraction is visually estimated to be 65 %. There are no left ventricular regional wall motion abnormalities. Grade 1 left ventricular diastolic dysfunction (abnormal relaxation). Aortic Valve: A(n) normal 23 mm [place] MOOSE 3 aortic bioprosthesis is present. No prosthetic aortic valve stenosis. No significant aortic transvalvular regurgitation. No significant aortic perivalvular regurgitation. Increased velocity through aortic valve likely due to increased flow. Aortic valve mean gradient is 16 mmHg. Estimated aortic valve area (by VTI) is 2.1 cm-sq. Aortic valve acceleration time is 63 ms. Aorta: The ascending aorta is normal in size measuring 35.0 mm. Mitral Valve: Mild mitral leaflet thickening. [id number] mitral annular calcification. Increased velocity through mitral valve likely due to increased flow. Trivial mitral regurgitation. Mitral valve mean gradient is 5 mmHg. Left Atrium: Markedly dilated left atrium. Pulmonic Valve: Normal pulmonary valve structure. No significant pulmonary regurgitation. IAS: No gross evidence of shunt flow seen; however the possibility of a PFO cannot be completely ruled out. Right Ventricle: Normal right ventricular size. Normal right ventricular systolic function. Normal right ventricular wall thickness. TAPSE measures 21 mm. Pulmonary Artery: Mild pulmonary artery hypertension. Pulmonary artery systolic pressure is measured at 42 mmHg. Tricuspid Valve: Normal tricuspid valve structure. Trivial tricuspid regurgitation. Right Atrium: Normal right atrial size. IVC: Normal IVC size with normal respirophasic changes. Pericardium: No significant pericardial effusion. Measurements 2D Measurements Doppler Measurements Left Ventricle Normal Values Aortic Valve Normal Values IVSd (2D): 10.1 mm 6 mm-10 mm ROB ( VTI) (cw): 2.1 cm-sq 3 cm-sq-4 cm-sq LVDd (2D): 48.2 mm 38 mm-52 mm ROB ( Vmax) (cw): 2.0 cm-sq 3 cm-sq-4 cm-sq LVDs (2D): 37.8 mm 21 mm-40 mm AV VTI (cw): 48.60 cm LVPWd (2D): 9.4 mm AV Vmax (cw): 258 cm/s LVSV: 48 ml AV Vmean (cw): 171 cm/s LVEDV: 109 ml AV max Gradient(cw): 27 mmHg LVEDV Index: 55.6 ml/m-sq AV mean Gradient (cw): 16 mmHg LVESV: 61 ml LVOTd : 21 mm LVESV Index: 31.1 ml/m-sq LVOT Vmax: 151 cm/s FS (2D): 22 % LVOT maxP mmHg LVOT Stroke Volume: 103 ml Mitral Valve LVOT VTI: 29.70 MV Dec Time (pw): 330 msec Cardiac Output: 8.65 L/min MV A Vmax(cw): 125 cm/s Cardiac Index: 4.41 L/min/m-sq MV E Vmax (cw): 108 cm/s Stroke Index: 52.55 ml/m-sq MV E/A (pw): 0.86 Right Ventricle MV VTI (pw): 38.90 cm TAPSE: 21 mm MV max Gradient (pw): 9 mmHg Left Atrium MV mean Gradient (pw): 5 mmHg LA Vol Index: 49.0 ml/m-sq 16 ml/m-sq-34 ml/m-sq MVA (VTI): 2.6 cm-sq LADs lon mm 19 mm-40 mm MVA ( Vmax): 2.6 cm-sq Right Atrium MV E ' septal (pw): 0.1cm/s IVC: 17 mm 12 mm-21 mm MV E ' lateral (pw): 0.1 LVOT MV E/ E' septal (pw): 15.80 LVOTd: 21 mm MV E/ E' lateral (pw): 10.60 RVOT Tricuspid Valve Aorta TR Vmax (cw): 314 cm/s Ascend: 35.0 mm TR max Gradient (cw): 39 mmHg Heart Rate Pulmonic Valve HR: 84 bpm PV Vmax (cw): 99 cm/s PV max Gradient: 4 mmHg Right Atrium RA Pressure (pw): 3mmHg Right Ventricle RVSP: 42 mmHg 0 mmHg-40 mmHg Pulmonary Artery Pulmonary Veins PVein A (pw): 30 cm/s PVein S (pw): 50 cm/s PVein D (pw): 46 cm/s PVein S/D Ratio: 1.10 (No Signature Object) TROPONIN I (11/10/2017 6:53 AM) Component Value Ref Range Troponin I 0.203 (H) 0.000 - 0.028 ng/mL Specimen Performing Laboratory Blood [address] [address] BASIC METABOLIC PANEL (11/10/2017 6:53 AM) Component Value Ref Range Glucose 114 (H) 70 - 100 mg/dL BUN 13 6 - 22 mg/dL Creatinine 0.81 0.60 - 1.10 mg/dL BUN/Creatinine Ratio 16.0 10.0 - 25.0 Sodium 143 135 - 145 meq/L Potassium 3.7 3.5 - 5.3 meq/L Chloride 108 99 - 110 meq/L CO2 24 20 - 29 meq/L Anion Gap with K 15 6 - 20 meq/L Calcium 9.6 8.5 - 10.5 mg/dL Age 87 Years eGFR Non- 67 >=60 mL/min/1.73m2 eGFR 81 >=60 mL/min/1.73m2 Specimen Performing Laboratory Blood [facility] [address] [facility] [address] [place] [address] PTT (11/10/2017 6:53 AM) Component Value Ref Range APTT 37 (H) 24 - 35 secs Specimen Performing Laboratory Blood [address] [address] EKG 12 LEAD (11/10/2017 6:30 AM)Only the most recent of2 resultswithin the time period is included. Component Value Ref Range EKG WAVEFORM Normal sinus rhythm: Nonspecific ST and T wave abnormality: Abnormal ECG: When compared with ECG of 09-NOV-2017 09:55,: No significant change was found Ventricular Rate: 85 BPM Atrial Rate: 85 BPM P-R Interval: 142 ms QRS Duration: 84 ms Q-T Interval: 406 ms QTC Calculation(Bazett): 483 ms Calculated P [place]: 8 degrees Calculated R [place]: 9 degrees Calculated T [place]: 95 degrees HEMOGLOBIN (11/09/2017 10:32 PM) Component Value Ref Range Hemoglobin 10.6 (L) 11.5 - 15.8 g/dL Specimen Performing Laboratory Blood [address] [place] [address] HEMOGLOBIN (11/09/2017 3:35 PM) Component Value Ref Range Hemoglobin 11.0 (L) 11.5 - 15.8 g/dL Specimen Performing Laboratory Blood [address] [place] [address] XRAY CHEST PORTABLE - (11/09/2017 10:04 AM) Specimen Performing Laboratory PS360 Narrative Patient Name: YOLI CONTRERAS Date of :1930 Procedure: XRAY CHEST PORTABLE Date of Service: 11/09/2017 EXAM: XRAY CHEST PORTABLE INDICATION: Central line placement COMPARISON(S): 11/08/2017 2:19 PM FINDINGS/IMPRESSION: 1.Right IJ catheter tip SVC. T BACILIO ascending thoracic aorta 2.Lower inspiration than on prior study with a small amount of left base atelectasis . 3.Atherosclerotic changes thoracic aorta. 4.Healed left-sided rib fractures. Finalized by: Issac Hansen MD on 11/09/2017 10:36 AM Patient/Procedure Information: [facility] MRN/LEIA: [id number] Order Number: [id number] Accession Number: [id number] Ordering Provider: BETZAIDA OLIVA Authorizing Provider: BETZAIDA OLIVA Procedure Note Mesha Barrett - 11/09/2017 10:38 AM CDT Patient Name: YOLI CONTRERAS Date of : 1930 Procedure: XRAY CHEST PORTABLE Date of Service: 11/09/2017 EXAM: XRAY CHEST PORTABLE INDICATION: Central line placement COMPARISON(S): 11/08/2017 2:19 PM FINDINGS/IMPRESSION: 1. Right IJ catheter tip SVC. T BACILIO ascending thoracic aorta 2. Lower inspiration than on prior study with a small amount of left base atelectasis . 3. Atherosclerotic changes thoracic aorta. 4. Healed left-sided rib fractures. Finalized by: Issac Hansen MD on 11/09/2017 10:36 AM Patient/Procedure Information: [facility] MRN/LEIA: [id number] Order Number: [id number] Accession Number: [id number] Ordering Provider: BETZAIDA OLIVA Authorizing Provider: BETZAIDA OLIVA HEMOGLOBIN (11/09/2017 9:45 AM) Component Value Ref Range Hemoglobin 10.1 (L) 11.5 - 15.8 g/dL Specimen Performing Laboratory Blood [facility] [address] [place] [address] OR PANEL 1 POCT (11/09/2017 9:03 AM) Component Value Ref Range pH Arterial POCT 7.32 (L) 7.35 - 7.45 pCO2 Arterial POCT 49 (H) 35 - 45 mmHg pO2 Arterial POCT 83 80 - 100 mmHg HCO3 (Bicarb) Arterial POCT 25 20 - 29 mmol/L Base Excess Arterial POCT -1 -2 - 2 meq/L O2 Sat % Arterial POCT 95 95 - 98 % Ionized Calcium 1.22 1.12 - 1.32 mmol/L Sodium 144 135 - 145 meq/L Potassium 3.7 3.5 - 5.3 meq/L Glucose 123 (H) 70 - 100 mg/dL Hematocrit 33.0 (L) 35.0 - 45.0 % Hemoglobin 11.3 (L) 11.5 - 15.8 g/dL Specimen Source Arterial Specimen Performing Laboratory Blood [facility] POINT OF CARE TESTING [address] [place] [address] Narrative Whole blood sample. Unable to evaluate for hemolysis. ACTIVATED CLOTTING TIME POCT (11/09/2017 9:02 AM) Component Value Ref Range Activated Clotting Time 114 100 - 140 Secs Specimen Performing Laboratory Blood [facility] POINT OF CARE TESTING [address] [place] [address], [place] [address] HEPARIN ASSAY (11/09/2017 9:02 AM) Component Value Ref Range Heparin Assay 0 No Reference Range Established U/Kg Specimen Performing Laboratory Blood [facility] POINT OF CARE TESTING [address] [place] [address] HEPARIN ASSAY (11/09/2017 8:46 AM) Component Value Ref Range Heparin Assay 100 No Reference Range Established U/Kg Specimen Performing Laboratory Blood [facility] POINT OF CARE TESTING [address] [place] [address] ACTIVATED CLOTTING TIME POCT (11/09/2017 8:39 AM) Component Value Ref Range Activated Clotting Time 285 (H) 100 - 140 Secs Specimen Performing Laboratory Blood [facility] POINT OF CARE TESTING [address] [place] [address] ACTIVATED CLOTTING TIME POCT (11/09/2017 8:31 AM) Component Value Ref Range Activated Clotting Time 251 (H) 100 - 140 Secs Specimen Performing Laboratory Blood [facility] POINT OF CARE TESTING [address] [place] [address] ECHO ADULT LIMITED (11/09/2017 8:02 AM) Narrative Patient: YOLI CONTRERAS MR#:[id number] Exam Date:11/09/2017 [address] Echocardiogram [place], [place] BP: HR: 82 bpm :1930 Exam Location:Cloth Opener Hand Height: 67.00 "(170.2 cm) Age:87 year(s) Patient Room: [place] [address]Weight: 186 lbs.( 84.37 kg) Gender: Female Patient Status: InpatientBSA:1.96 m2 Ordering Physician: Betzaida Oliva DO Reading Physician:Betzaida Oliva DO Credit Risk Officer:Milo Toney RDCS (,FE) Procedure Indication(s):OLGA Examination:TTE Limited 2D, Limited Spectral Doppler, Color Doppler Conclusions Findings Left Ventricle: Normal left ventricular size. Normal left ventricular wall thickness. The ejection fraction is visually estimated to be 65 %. Aortic Valve: Pre Procedure: Marked aortic cuspal calcification. Severe aortic stenosis. Mild aortic regurgitation. The peak valve velocity is 420 cm/s. Aortic valve mean gradient is 46 mmHg. Estimated aortic valve area (by VTI) is 0.7 cm-sq. Post Procedure: A(n) 23 mm [place] MOOSE 3 aortic bioprosthesis is present. No prosthetic aortic valve stenosis. No significant aortic transvalvular regurgitation. No significant aortic perivalvular regurgitation. Aortic valve mean gradient is 7 mmHg. Estimated aortic valve area (by VTI) is 2.2 cm-sq. Left Atrium: Markedly dilated left atrium. Pericardium: No significant pericardial effusion. Measurements 2D Measurements Doppler Measurements Left Ventricle Normal Values Aortic Valve Normal Values LVOT Stroke Volume:73 ml ROB (VTI) (cw):0.7 cm-sq 3 cm-sq-4 cm-sq LVOT VTI:21.00 ROB (Vmax) (cw): 0.8 cm-sq 3 cm-sq-4 cm-sq Cardiac Output:5.99 L/minAV VTI (cw): 102.00 cm Cardiac Index: 3.05 L/min/m-sq AV Vmax (cw):420 cm/s Stroke Index:37.24 ml/m-sq AV Vmean (cw): 321 cm/s Post LVSV: 85 ml AV max Gradient(cw): 71 mmHg Right Ventricle AV mean Gradient (cw): 46 mmHg Left Atrium LVOTd: 21 mm LA Vol Index:51.0 ml/m-sq16 ml/m-sq -34 ml/m-sq LVOT Vmax: 92 cm/s LADs lon mm 19 mm- 40 mm LVOT maxP mmHg Right Atrium Mitral Valve LVOT Tricuspid Valve LVOTd: 21 mm Pulmonic Valve RVOT Right Atrium Aorta Right Ventricle Heart Rate Pulmonary Artery HR:82 bpm Pulmon tristin Veins Procedure Note Interface, Inc Results No Pull Forward - 11/09/2017 10:06 AM CDT Patient: YOLI CONTRERAS MR#: [id number] Exam Date: 11/09/2017 TAVR Transthoracic [facility] [address] Echocardiogram [place], [place] [id number] BP: HR: 82 bpm : 1930 Exam Location: Cloth [facility]er [facility] Height: 67.00 "(170.2 cm) Age: 87 year(s) Patient Room: [place] [address] Weight: 186 lbs.(84.37 kg) Gender: Female Patient Status: Inpatient BSA: 1.96 m2 Ordering Physician: Betzaida Oliva DO Reading Physician: Betzaida Oliva DO Credit Risk Officer: Milo Toney RDCS (PE,FE) Procedure Indication(s): OLGA Examination: TTE Limited 2D, Limited Spectral Doppler, Color Doppler Conclusions Findings Left Ventricle: Normal left ventricular size. Normal left ventricular wall thickness. The ejection fraction is visually estimated to be 65 %. Aortic Valve: Pre Procedure: Marked aortic cuspal calcification. Severe aortic stenosis. Mild aortic regurgitation. The peak valve velocity is 420 cm/s. Aortic valve mean gradient is 46 mmHg. Estimated aortic valve area (by VTI) is 0.7 cm- sq. Post Procedure: A(n) 23 mm [place] MOOSE 3 aortic bioprosthesis is present. No prosthetic aortic valve stenosis. No significant aortic transvalvular regurgitation. No significant aortic perivalvular regurgitation. Aortic valve mean gradient is 7 mmHg. Estimated aortic valve area (by VTI) is 2.2 cm-sq. Left Atrium: Markedly dilated left atrium. Pericardium: No significant pericardial effusion. Measurements 2D Measurements Doppler Measurements Left Ventricle Normal Values Aortic Valve Normal Values LVOT Stroke Volume: 73 ml ROB (VTI ) (cw): 0.7 cm-sq 3 cm-sq-4 cm-sq LVOT VTI: 21.00 ROB ( Vmax) (cw): 0.8 cm-sq 3 cm-sq-4 cm-sq Cardiac Output: 5.99 L/min AV VTI ( cw): 102.00 cm Cardiac Index: 3.05 L/min/m-sq AV Vmax (cw): 420 cm/s Stroke Index: 37.24 ml/m-sq AV Vmean (cw): 321 cm/s Post LVSV: 85 ml AV max Gradient(cw): 71 mmHg Right Ventricle AV mean Gradient (cw): 46 mmHg Left Atrium LVOTd: 21 mm LA Vol Index: 51.0 ml/m-sq 16 ml/m-sq-34 ml/m-sq LVOT Vmax: 92 cm/s LADs lon mm 19 mm-40 mm LVOT maxP mmHg Right Atrium Mitral Valve LVOT Tricuspid Valve LVOTd: 21 mm Pulmonic Valve RVOT Right Atrium Aorta Right Ventricle Heart Rate Pulmonary Artery HR: 82 bpm Pulmonary Veins VATED CLOTTING TIME POCT (11/09/2017 7:59 AM) Component Value Ref Range Activated Clotting Time 131 100 - 140 Secs Specimen Performing Laboratory Blood [facility] POINT OF CARE TESTING [address] [place] [address] OR PANEL 1 POCT (11/09/2017 7:59 AM) Component Value Ref Range pH Arterial POCT 7.41 7.35 - 7.45 pCO2 Arterial POCT 41 35 - 45 mmHg pO2 Arterial POCT 169 (H) 80 - 100 mmHg HCO3 (Bicarb) Arterial POCT 26 20 - 29 mmol/L Base Excess Arterial POCT 1 -2 - 2 meq/L O2 Sat % Arterial POCT 100 (H) 95 - 98 % Ionized Calcium 1.22 1.12 - 1.32 mmol/L Sodium 144 135 - 145 meq/L Potassium 3.8 3.5 - 5.3 meq/L Glucose 115 (H) 70 - 100 mg/dL Hematocrit 35.0 35.0 - 45.0 % Hemoglobin 12.0 11.5 - 15.8 g/dL Specimen Source Arterial Specimen Performing Laboratory Blood [facility] POINT OF CARE TESTING [address] [place] [address] Narrative Whole blood sample. Unable to evaluate for hemolysis. PREPARE AND HOLD RED BLOOD CELLS - BLOOD BANK (11/09/2017 6:30 AM) Component Value Ref Range [facility] Product Code P9877N87 [facility] Unit Number [id number] Unit ABO Type O Unit Rh Type POS BPAM Dispense Status RE [facility] Blood Expiration Date [facility] Coding System 5100 Product Code RBC, Leukoreduced/Apheresis 1st cont. Unit ID [id number] Product Status Released from Crossmatched Specimen Performing Laboratory Blood LAB in this encounter Visit Diagnoses Diagnosis Mixed simple and mucopurulent chronic bronchitis - Primary Other chronic bronchitis Essential hypertension Unspecified essential hypertension S/p TAVR (transcatheter aortic valve replacement), bioprosthetic Aortic stenosis Aortic valve disorders in this encounter Administered Medications Medication Order MAR Action Action Date Dose Rate Site acetaminophen (TYLENOL) tablet 650 mg Given 11/09/2017 21:30 CDT 650 mg 650 mg, Oral, Every four hours prn, Starting Wed11/09/17 at 1457, Until Discontinued, mild pain, fever > (indicate temp), fever greater than 101 F, Post - Op, Oral or NG Given 11/10/2017 07:38 CDT 650 mg Given 11/10/2017 20:33 CDT 650 mg amLODIPine (NORVASC) tablet 5 mg Given 11/10/2017 07:39 CDT 5 mg 5 mg, Oral, Daily, First dose on Wed11/10/17 at 0900, Until Discontinued Given 11/11/2017 08:48 CDT 5 mg Given 11/12/2017 07:51 CDT 5 mg aspirin enteric coated tablet 81 mg Given 11/10/2017 07:39 CDT 81 mg 81 mg, Oral, Daily, First dose on Wed11/10/17 at 0900, Until Discontinued, Post - Op, Tablet should be swallowed whole and not be divided, crushed or chewed. Given 11/11/2017 08:48 CDT 81 mg Given 11/12/2017 07:51 CDT 81 mg calcium carbonate (TUMS) chewable tablet 500 mg Given 11/10/2017 21:51 CDT 500 mg 500 mg, Oral, Every four hours prn, Starting Wed11/10/17 at 2130, Until Discontinued, heartburn clopidogrel (PLAVIX) tablet 75 mg Given 11/10/2017 07:39 CDT 75 mg 75 mg, Oral, Daily, First dose on Wed11/10/17 at 0900, Until Discontinued, Post - Op Given 11/11/2017 08:48 CDT 75 mg Given 11/12/2017 07:51 CDT 75 mg donepezil (ARICEPT) tablet 5 mg Given 11/09/2017 21:14 CDT 5 mg 5 mg, Oral, Bedtime, First dose on Wed11/09/17 at 2100, Until Discontinued Given 11/10/2017 22:40 CDT 5 mg Given 11/11/2017 22:00 CDT 5 mg furosemide (LASIX) tablet 40 mg Given 11/10/2017 07:39 CDT 40 mg 40 mg, Oral, DAILY, First dose on Wed11/10/17 at 0900, Until Discontinued Given 11/11/2017 08:48 CDT 40 mg Given 11/12/2017 07:51 CDT 40 mg gabapentin (NEURONTIN) capsule 300 mg Given 11/11/2017 08:48 CDT 300 mg 300 mg, Oral, Two times a day, First dose on Wed11/09/17 at 2100, Until Discontinued Given 11/11/2017 21:09 CDT 300 mg Given 11/12/2017 07:51 CDT 300 mg HYDROcodone-acetaminophen (NORCO) 5-325 mg Given 11/10/2017 21:23 CDT 1 tablet tablet 1 tablet 1 tablet, Oral, Every six hours prn, Starting Wed11/10/17 at 0851, Until Discontinued, moderate pain, severe pain, Total dose of acetaminophen from all acetaminophen containing products should not exceed 4 grams (4000 mg) per day. Given 11/12/2017 03:18 CDT 1 tablet levothyroxine tablet 112 mcg Given 11/10/2017 06:45 CDT 112 mcg 112 mcg, Oral, One time a day before breakfast, First dose on Wed11/10/17 at 0700, Until Discontinued Given 11/11/2017 06:11 CDT 112 mcg Given 11/12/2017 07:51 CDT 112 mcg lisinopril (PRINIVIL, ZESTRIL) tablet 10 mg Given 11/11/2017 08:48 CDT 10 mg 10 mg, Oral, Daily, First dose on Wed11/11/17 at 0900, Until Discontinued, Hold for SBP less than 110 Given 11/12/2017 07:51 CDT 10 mg ondansetron (ZOFRAN) injection solution 4 mg Given 11/10/2017 21:26 CDT 4 mg 4 mg, IV, Every four hours prn, Starting Wed11/09/17 at 1457, Until Discontinued, nausea, vomiting, 2 mL, Post - Op sertraline (ZOLOFT) tablet 50 mg Given 11/09/2017 20:30 CDT 50 mg 50 mg, Oral, Bedtime, First dose on Wed11/09/17 at 2100, Until Discontinued Given 11/10/2017 20:37 CDT 50 mg Given 11/11/2017 21:09 CDT 50 mg simvastatin (ZOCOR) tablet 10 mg Given 11/09/2017 20:30 CDT 10 mg 10 mg, Oral, Bedtime, First dose on Wed11/09/17 at 2100, Until Discontinued Given 11/10/2017 20:37 CDT 10 mg Given 11/11/2017 21:09 CDT 10 mg Medication Order MAR Action Action Date Dose Rate Site albumin (human) 5 % IV solution 12.5 Given 11/09/2017 10:16 CDT 12.5 g g 12.5 g (250 mL), IV, One time prn, 1 dose, Starting Wed11/09/17 at 1005, Until Wed11/09/17 at 1016, for sbp <90, 250 mL, A bottle should not hang longer than 4 hours albumin (human) 5 % IV solution 12.5 g Given 11/09/2017 11:00 CDT 12.5 g 12.5 g (250 mL), IV, One time, 1 dose, Wed11/09/17 at 1200, 250 mL, PACU, A bottle should not hang longer than 4 hours. ceFAZolin (ANCEF) 1000 mg/10 mL sterile water Given 11/09/2017 17:33 CDT 1, 000 mg IV syringe 1,000 mg, IV, Every eight hours, 2 doses, First dose on Wed11/09/17 at 1600, Last dose on Wed11/10/17 at 0000, 10 mL, Post - Op Given 11/10/2017 00:05 CDT 1,000 mg iohexol (OMNIPAQUE) 350 mg/mL solution 50 mL Given 11/09/2017 09:09 CDT 50 mL 50 mL, Intra-arterial, One time, 1 dose, Wed11/09/17 at 0910, 50 mL lidocaine PF (XYLOCAINE-MPF) 1 % preservative Given 11/09/2017 08:43 CDT 35 mL free injection solution 0-40 mL 0-40 mL, Subcutaneous, Administer in Cardiac Cloth Opener Hand, 1 dose, Wed11/09/17 at 0845, 60 mL, Given by provider in CCL. Do not give on the floor. lisinopril (PRINIVIL, ZESTRIL) tablet 20 mg Given 11/10/2017 07:39 CDT 20 mg 20 mg, Oral, Daily, First dose on Wed11/10/17 at 0900, Until Discontinued, Hold for SBP less than 110 PHENYLephrine 200 mcg/mL Rate Change 11/09/2017 13:10 CDT 0.25 mcg/kg/min 6.3 mL/hr in sodium chloride 0.9% 250 mL 0-2 mcg/kg/min 84.3 kg (0-50.58 mL/hr, rounded to 0-50.6 mL/hr), IV, at 0-50.6 mL/hr, Titrate, Starting 11/09/17 at 1025, Until Wed11/10/17 at 0851, 250 mL, Initiate the infusion at 0.1-0.5 mcg/kg/min. Increase or decrease the infusion by 0.1-0.5 mcg/kg/min every 5 minutes to keep SBP greater than 90 mmHg. When discontinuing or weaning, decrease dose gradually by 0.1-0.5 mcg/kg/minute every 5 minutes as tolerated to prevent severe hypotension. Document titrations in One Chart (MAR or I&O Flowsheet medication group). Central line preferred if available. Acceptable to give peripherally for urgent need and one-time administration. Pursue a central line for continuous use greater than 24 hours. Rate Change 11/09/2017 13:15 CDT 0.2 mcg/kg/min 5.1 mL/hr Rate Change 11/09/2017 13:20 CDT 0.1 mcg/kg/min 2.5 mL/hr sodium chloride 0.9% (bolus) IV solution 500 mL Given 11/10/2017 13:00 CDT 500 mL 500 mL, IV, Bolus, 1 dose, Wed11/10/17 at 1355, 500 mL in this encounter
[2017-11-17] MEDS: Donepezil 5 MG Tab PO SCH (20:24)
[2017-11-17] MEDS: Simvastatin 10 MG Tab PO SCH (20:25)
[2017-11-17] MEDS: Sertraline 50 MG Tab PO SCH (20:25)
[2017-11-18] MEDS: Acetaminophen/HYDROcodone 325-5 MG Tab PO PRN ×2 (05:43→20:06)
[2017-11-18] MEDS: Levothyroxine 112 MCG Tab PO SCH (06:58)
[2017-11-18] MEDS: Furosemide 20 MG Tab PO SCH ×2 (07:54→13:37)
[2017-11-18] MEDS: Aspirin 81 MG Tab.EC PO SCH (08:02)
[2017-11-18] MEDS: Gabapentin 300 MG Cap PO SCH ×2 (08:04→20:06)
[2017-11-18] MEDS: amLODIPine 5 MG Tab PO SCH (08:04)
[2017-11-18] MEDS: Clopidogrel 75 MG Tab PO SCH (08:08)
[2017-11-18] MEDS: Lisinopril 10 MG Tab PO SCH (08:08)
[2017-11-18] MEDS: Multivitamin Tab PO SCH (08:09)
[2017-11-18] MEDS: Cholecalciferol (Vitamin D3) 1,000 Unit Tab PO SCH (08:09)
[2017-11-18] MEDS: Sertraline 50 MG Tab PO SCH (20:06)
[2017-11-18] MEDS: Simvastatin 10 MG Tab PO SCH (20:06)
[2017-11-18] MEDS: Donepezil 5 MG Tab PO SCH (20:06)
--- NOTE | 2017-11-19 06:03 | DISCH ---
DISCHARGE DATE: 11/18/2017 Rosalia Koo is an 87-year-old female admitted to [facility] on 11/13/2017. Underwent a transfemoral aortic valve replacement by Dr. Oliva in Interventional Cardiology at [facility]. All went well surgically. She was admitted for observation PT and strengthening. Upon admission, vital signs were stable, PT was actively involved, diet was advanced, ambulation skills improved. Both femoral groin wounds healed without conflict, no redness or swelling. Vital signs remained stable. Medications were appropriate, no changes in adjustments. Discharged home with home health intervention. Indication for Home Health includes ambulation, postoperative care, personal skills, and safety wound observation all appropriate and timely. /[id number] RUBY/BELLE
[2017-11-19] MEDS: Furosemide 20 MG Tab PO SCH (07:34)
[2017-11-19] MEDS: Levothyroxine 112 MCG Tab PO SCH (07:34)
[2017-11-19 08:29] VITALS: BP 107/59
[2017-11-19] MEDS: Gabapentin 300 MG Cap PO SCH (08:32)
[2017-11-19] MEDS: Aspirin 81 MG Tab.EC PO SCH (08:32)
[2017-11-19] MEDS: Multivitamin Tab PO SCH (08:33)
[2017-11-19] MEDS: amLODIPine 5 MG Tab PO SCH (08:33)
[2017-11-19] MEDS: Clopidogrel 75 MG Tab PO SCH (08:33)
[2017-11-19] MEDS: Lisinopril 10 MG Tab PO SCH (08:33)
[2017-11-19] MEDS: Cholecalciferol (Vitamin D3) 1,000 Unit Tab PO SCH (08:34)
--- NOTE | 2017-11-19 08:35 | DISCH ---
DISCHARGE DATE: 11/19/2017 HOSPITAL COURSE: Rosalia Koo is a delightful 87-year-old female, has been in swing bed at [facility]. Doing well. Underwent transfemoral aortic valve replacement. Hospitalized at [facility] 11/09/2017 to 11/12/2017 under the care of Jaspreet Yeager PA-C, Dr. Clinton Oliva, Cardiology. Please see clinical notes. She has been in rehab during this particular time. Ambulation skills and walking effort are without complication. PT/OT actively involved. Nutrition was appropriate. Wounds were healing well. Both the left and right femoral wound, without complicating issue. No ecchymosis or signs of infection. PHYSICAL EXAMINATION: At the time of discharge: VITAL SIGNS: Noted. CHEST: Clear in all lung steele. HEART: Regular without ectopy or murmur. ABDOMEN: Benign. Surgical sites are intact. POST REHAB CARE: Aortic valve replacement and general deconditioning. PLAN: Discharged home with home health, complementary care, and well-being. Follow up with Dr. Oliva as requested. SURGICAL PROCEDURES: None. CONSULTATIONS: None. /[id number] RUBY/FANNIEL CC: Clinton Oliva MD
== END 2017-11-19 12:45 | disposition home health service (06) | DRG 948 ==
LOC: FB.MS 14:14
PROVIDERS: ADMIT Family Medicine; ATTEND Family Medicine
DX: R53.1 Weakness (principal); Z95.2 Presence of prosthetic heart valve; Z98.890 Other specified postprocedural states; I11.0 Hypertensive heart disease with heart failure; I50.9 Heart failure, unspecified; E78.5 Hyperlipidemia, unspecified; E03.9 Hypothyroidism, unspecified; M19.90 Unspecified osteoarthritis, unspecified site; Z79.82 Long term (current) use of aspirin; Z79.01 Long term (current) use of anticoagulants; Z88.1 Allergy status to other antibiotic agents; Z88.0 Allergy status to penicillin; Z88.8 Allergy status to other drugs, medicaments and biological substances
CPT/HCPCS: 97110-GO; 97116-GP; 97161-GP; 97165-GO; 97530-GO; 97530-GP; 97535-GO; A9270-GY

== ENCOUNTER 2017-12-19 12:09 | Emergency (ER) | payer MEDICARE ==
[2017-12-19 12:49] VITALS: BP 167/92
--- NOTE | 2017-12-19 13:43 | EDM.PDOC ---
ED HPI GENERAL MEDICAL PROBLEM - General Chief Complaint: Headache Stated Complaint: HEADACHE AND CONFUSION Time Seen by Provider: 12/19/17 13:36 Source of Information: Reports: Patient, Family History Limitations: Reports: No Limitations - History of Present Illness INITIAL COMMENTS - FREE TEXT/NARRATIVE: c/o garbled speech and GASTON x 3 pt with 3 episodes of transient garbled speech and GASTON, occurred the last 2 evenings, last < 1 min, then was speaking normally, GASTON went away and pt went asleep after Advil x 2 two nights ago and Tyl x 2 last night pt ate cereal with banana for bfast, reading newspaper and again had garbled speech, no GASTON this time no c/o now, no GASTON, no n/v, no CP, no SOB, no f/c/d smiling, cheerful poor memory, thinks it is October 2014, knows name of hospital and name of her daughter dx dementia 3y ago, 2y ago, has lived with her dtr x 5-6y on 11-10-17 and a transvenous AVR by medical fee clerk Dr Oliva in [facility], on swing bed here 11/13-11/18 uses w/c most of time, last fell with walker 6w ago, can transfer independently , incontinent DNR/DNI on 09-21-17 had UC with E coli sensitive all except moxifloxacin, also had BC x 1 with Staph hominis sensitive to dapto, gent, rifampin, TET, TMP/SMX, vanco last saw Dr Oliva several wks ago, he stopped several meds and added Plavix, next apt is early January Treatments SHAMPOOER: Reports: Acetaminophen Other Treatments SHAMPOOER: Ibuprofen Bilateral Head Pain Score (Numeric/FACES): 5 - Related Data Allergies Allergy/AdvReac Type Severity Reaction Status Date / Time amitriptyline Allergy Cannot Verified 09/21/17 19:35 Remember atorvastatin [From Lipitor] Allergy Numbness Verified 09/21/17 19:35 azithromycin [From Zithromax] Allergy Cannot Verified 09/21/17 19:35 Remember ciprofloxacin [From Cipro] Allergy Nausea Verified 09/21/17 19:35 latex Allergy Rash Verified 09/21/17 19:35 meclizine Allergy Dizziness Verified 09/21/17 19:35 Penicillins Allergy Hives Verified 09/21/17 19:35 Home Meds: Home Meds Furosemide [Lasix] 20 mg PO 08,14 10/02/14 [History] Simvastatin [Zocor] 10 mg PO BEDTIME 10/02/14 [History] Aspirin [Halfprin] 81 mg PO DAILY 07/30/17 [History] Cetirizine [ZyrTEC] 10 mg PO DAILY PRN 07/30/17 [History] Levothyroxine 112 mcg PO DAILY 07/30/17 [History] Sertraline HCl 50 mg PO BEDTIME 07/30/17 [History] Hydrocodone/Acetaminophen [Hydrocodon-Acetaminophen 5-325] 1 each PO Q6H PRN 03/02 [History] Clopidogrel [Plavix] 75 mg PO DAILY #30 tablet 11/18/17 [Rx] Potassium Chloride 10 meq PO DAILY #30 tablet.er 12/19/17 [Rx] Past Medical History HEENT History: Reports: Hard of Hearing, Impaired Vision, Other (See Below) Other HEENT History: dentures Cardiovascular History: Reports: Heart Failure, Heart Murmur, High Cholesterol, Hypertension, Other (See Below) Other Cardiovascular History: edema, aortic stenosis, light headedness Respiratory History: Reports: COPD Gastrointestinal History: Reports: Gastritis, GERD, Other (See Below) Other Gastrointestinal History: gastroduodenitis Genitourinary History: Reports: Urinary Incontinence, Other (See Below) Other Genitourinary History: BLADDER SX PHARMACEUTICAL OFFICER History: Reports: Musculoskeletal History: Reports: Arthritis, Other (See Below) Other Musculoskeletal History: impaired functional mobility, balance, gait, and endurance; leg cramps Neurological History: Reports: Other (See Below) Other Neuro History: Meniere's vertigo Psychiatric History: Reports: Dementia, Depression, Other (See Below) Other Psychiatric History: gradual onset memory impairment; hypersomnolence disorder, vascular dementia without behavioral disturbance Endocrine/Metabolic History: Reports: Hypothyroidism, Obesity/BMI 30+, Other ( See Below) Other Endocrine/Metabolic History: THYROID PROBLEM NOT SURE IF HYPO OR HYPER - Infectious Disease History Infectious Disease History: Reports: Chicken Pox - Past Surgical History Other Cardiovascular Surgeries/Procedures: valve replaced GI Surgical History: Reports: Cholecystectomy Female Surgical History: Reports: Hysterectomy Social & Family History - Family History Family Medical History: Noncontributory - Tobacco Use Smoking Status *Q: Never Smoker Used Tobacco, but Quit: No Second Hand Smoke Exposure: No - Caffeine Use Caffeine Use: Reports: Coffee - Alcohol Use Days Per Week of Alcohol Use: 0 - Recreational Drug Use Recreational Drug Use: No ED ROS GENERAL - Review of Systems Review Of Systems: See Below Constitutional: Reports: No Symptoms, Other (wt down a few lbs, not eating well) . Denies: Fever, Chills, Malaise, Weakness, Fatigue, Night Sweats HEENT: Reports: No Symptoms Respiratory: Reports: No Symptoms Cardiovascular: Reports: No Symptoms Endocrine: Reports: No Symptoms GI/Abdominal: Reports: No Symptoms : Reports: No Symptoms Musculoskeletal: Reports: No Symptoms Skin: Reports: No Symptoms Neurological: Reports: Dizziness, Headache, Trouble Speaking Psychiatric: Reports: No Symptoms Hematologic/Lymphatic: Reports: No Symptoms Immunologic: Reports: No Symptoms - Physical Exam Exam: See Below Exam Limited By: Other (poor memory) General Appearance: Alert, WD/WN, No Apparent Distress, Other (pleasant, good eye contact, smiling, nl speech) Eye Exam: Bilateral Eye: Normal Inspection Ears: Normal External Exam, Hearing Grossly Normal Nose: Normal Inspection, Normal Mucosa, No Blood Throat/Mouth: Normal Inspection, Normal Lips, Normal Voice, No Airway Compromise Head Exam: Atraumatic Neck: Normal Inspection, Supple, Non-Tender, Full Range of Motion Respiratory/Chest: No Respiratory Distress, Lungs Clear, Normal Breath Sounds, No Accessory Muscle Use, Chest Non-Tender Cardiovascular: Regular Rate, Rhythm, No Gallop, No JVD, No Murmur, No Rub, Other (2/6 MARLENY at LSB, quiet precordium, trace pretib edema b/l) GI/Abdominal: Normal Bowel Sounds, Soft, Non-Tender, No Organomegaly, No Distention, No Mass Back Exam: Normal Inspection, Full Range of Motion, NT Extremities: Normal Inspection, Normal Range of Motion, Non-Tender, Other (old yellow bruises x 2 below and above R knee anteriorly) Psychiatric: Normal Affect, Normal Mood. No: Anxious, Depressed Mood, Flat Affect, Tearful Skin Exam: Warm, Dry, Intact, No Rash Course - Vital Signs Last Recorded V/S: Last Vital Signs Temp 36.7 C 12/19/17 12:45 Pulse 83 12/19/17 12:45 Resp 18 12/19/17 12:45 BP 167/92 H 12/19/17 12:45 Pulse Ox 97 12/19/17 12:45 - Orders/Labs/Meds Orders: Active Orders 24 hr Category Date Time Status EKG Documentation Completion [RC] ASDIRECTED Care 12/19/17 13:30 Active Insert Urinary Catheter [OM.PC] Q24H Care 12/19/17 15:00 Ordered Urinary Catheter Assessment [RC] QSHIFT Care 12/19/17 14:54 Active Chest 1V Frontal [CR] Stat Exams 12/19/17 13:29 Taken Head wo Cont [CT] Stat Exams 12/19/17 13:28 Taken URINALYSIS W/MICROSCOPIC [UA W/MICROSCOPIC] [URIN] Stat Lab 12/19/17 14:11 Ordered EKG 12 Lead [EK] Routine Ther 12/19/17 13:29 Ordered Labs: Laboratory Tests 12/19/17 12/19/17 12/19/17 Range/Units 14:00 14:00 14:00 WBC 11.2 (4.5-12.0) X10-3/uL RBC 4.48 (3.23-5.20) x10(6)uL Hgb 12.8 (11.5-15.5) g/dL Hct 38.2 (30.0-51.3) % MCV 85.3 (80-96) fL MCH 28.6 (27.7-33.6) pg MCHC 33.5 (32.2-35.4) g/dL RDW 15.0 (11.5-15.5) % Plt Count 231 (125-369) X10(3)uL MPV 6.8 L (7.4-10.4) fL Neut % (Auto) 72.2 (46-82) % Lymph % (Auto) 15.9 (13-37) % Archuleta % (Auto) 8.7 (4-12) % Eos % (Auto) 2 (1.0-5.0) % Baso % (Auto) 1 (0-2) % Neut # (Auto) 7.9 (1.6-8.3) # Lymph # (Auto) 1.8 (0.6-5.0) # Archuleta # (Auto) 1.0 (0.0-1.3) # Eos # (Auto) 0.3 (0.0-0.8) # Baso # (Auto) 0.1 (0.0-0.2) # Sodium 141 (135-145) mmol/L Potassium 3.4 L (3.5-5.3) mmol/L Chloride 102 D (100-110) mmol/L Carbon Dioxide 28 (21-32) mmol/L BUN 15 (7-18) mg/dL Creatinine 0.9 (0.55-1.02) mg/dL Est Cr Clr Drug Dosing 42.02 mL/min Estimated GFR (MDRD) 59 L (>60) BUN/Creatinine Ratio 16.7 (9-20) Glucose 106 (80-116) mg/dL Calcium 9.4 (8.6-10.2) mg/dL Total Bilirubin 0.7 (0.1-1.3) mg/dL AST 15 D (5-25) IU/L ALT 16 D (12-36) U/L Alkaline Phosphatase 61 (56-112) IU/L Troponin I 0.028 (<0.017-0.056) ng/mL C-Reactive Protein < 0.2 L (0.5-0.9) mg/dL NT-Pro-B Natriuret Pep 1274 H* (<=450) pg/mL Total Protein 7.6 (6.0-8.0) g/dL Albumin 3.7 (3.2-4.6) g/dL Globulin 3.9 g/dL Albumin/Globulin Ratio 1.0 Urine Color (YELLOW) Urine Appearance (CLEAR) Urine pH (5.0-6.5) Ur Specific Erie (1.010-1.025) Urine Protein (NEGATIVE) mg/dL Urine Glucose (UA) (NEGATIVE) mg/dL Urine Ketones (NEGATIVE) mg/dL Urine Occult Blood (NEGATIVE) Urine Nitrite (NEGATIVE) Urine Bilirubin (NEGATIVE) Urine Urobilinogen (NEGATIVE) mg/dL Ur Leukocyte Esterase (NEGATIVE) Urine RBC (0) Urine WBC (0) Ur Squamous Epith Cells (NS,R,O) Urine Bacteria (NS) Urine Mucus (NS) 12/19/17 Range/Units 14:11 WBC (4.5-12.0) X10-3/uL RBC (3.23-5.20) x10(6)uL Hgb (11.5-15.5) g/dL Hct (30.0-51.3) % MCV (80-96) fL MCH (27.7-33.6) pg MCHC (32.2-35.4) g/dL RDW (11.5-15.5) % Plt Count (125-369) X10(3)uL MPV (7.4-10.4) fL Neut % (Auto) (46-82) % Lymph % (Auto) (13-37) % Archuleta % (Auto) (4-12) % Eos % (Auto) (1.0-5.0) % Baso % (Auto) (0-2) % Neut # (Auto) (1.6-8.3) # Lymph # (Auto) (0.6-5.0) # Archuleta # (Auto) (0.0-1.3) # Eos # (Auto) (0.0-0.8) # Baso # (Auto) (0.0-0.2) # Sodium (135-145) mmol/L Potassium (3.5-5.3) mmol/L Chloride (100-110) mmol/L Carbon Dioxide (21-32) mmol/L BUN (7-18) mg/dL Creatinine (0.55-1.02) mg/dL Est Cr Clr Drug Dosing mL/min Estimated GFR (MDRD) (>60) BUN/Creatinine Ratio (9-20) Glucose (80-116) mg/dL Calcium (8.6-10.2) mg/dL Total Bilirubin (0.1-1.3) mg/dL AST (5-25) IU/L ALT (12-36) U/L Alkaline Phosphatase (56-112) IU/L Troponin I (<0.017-0.056) ng/mL C-Reactive Protein (0.5-0.9) mg/dL NT-Pro-B Natriuret Pep (<=450) pg/mL Total Protein (6.0-8.0) g/dL Albumin (3.2-4.6) g/dL Globulin g/dL Albumin/Globulin Ratio Urine Color Yellow (YELLOW) Urine Appearance Clear (CLEAR) Urine pH 5.0 (5.0-6.5) Ur Specific Erie 1.020 (1.010-1.025) Urine Protein Negative (NEGATIVE) mg/dL Urine Glucose (UA) Normal (NEGATIVE) mg/dL Urine Ketones Negative (NEGATIVE) mg/dL Urine Occult Blood Negative (NEGATIVE) Urine Nitrite Negative (NEGATIVE) Urine Bilirubin Negative (NEGATIVE) Urine Urobilinogen Normal (NEGATIVE) mg/dL Ur Leukocyte Esterase Negative (NEGATIVE) Urine RBC 0-5 (0) Urine WBC 0-5 (0) Ur Squamous Epith Cells Occasional (NS,R,O) Urine Bacteria Rare H (NS) Urine Mucus Moderate H (NS) - Re-Assessments/Exams Free Text/Narrative Re-Assessment/Exam: 12/19/17 15:07 w/u neg, only 8 meds, K 3.4 and slightly low, creat 0.9, not on K, is on furosemide 20 mg daily, fluid balance seems quite good, will give low dose K pt has apt with medical fee clerk in 1m head CT neg cannot exclude TIAs, however a mild flare of her known dementia is more likely prn ibuprofen and APAP has seemed to work well, may continue cardiac function s/p AVR is excellent, on no HF meds except furosemide Departure - Departure Time of Disposition: 15:09 Disposition: Home, Self-Care 01 Condition: Good Clinical Impression: Mild dementia - Discharge Information Prescriptions: Potassium Chloride 10 meq PO DAILY #30 tablet.er Referrals: Cristopher Madden MD [Primary Care Provider] - Forms: ED Department Discharge Additional Instructions: Continue current meds. Add potassium 10 meq 1 tab daily for 3 days, then 1 tab every Mon, Wed, Fri. See your medical fee clerk in 1 month as scheduled. See your PCP in the next week as needed. Call your Physician or Return to Emergency Department if: * Your condition worsens in any way. * You develop fever greater than 100.4. * You have vomitting that does not stop with medications. * You have pain that is not controlled with medications. - My Orders Last 24 Hours: My Active Orders 12/19/17 13:28 Head wo Cont [CT] Stat 12/19/17 13:29 Chest 1V Frontal [CR] Stat EKG 12 Lead [EK] Routine 12/19/17 13:30 EKG Documentation Completion [RC] ASDIRECTED 12/19/17 14:11 URINALYSIS W/MICROSCOPIC [UA W/MICROSCOPIC] [URIN] Stat 12/19/17 14:54 Urinary Catheter Assessment [RC] QSHIFT 12/19/17 15:00 Insert Urinary Catheter [OM.PC] Q24H - Assessment/Plan Last 24 Hours: My Active Orders 12/19/17 13:28 Head wo Cont [CT] Stat 12/19/17 13:29 Chest 1V Frontal [CR] Stat EKG 12 Lead [EK] Routine 12/19/17 13:30 EKG Documentation Completion [RC] ASDIRECTED 12/19/17 14:11 URINALYSIS W/MICROSCOPIC [UA W/MICROSCOPIC] [URIN] Stat 12/19/17 14:54 Urinary Catheter Assessment [RC] QSHIFT 12/19/17 15:00 Insert Urinary Catheter [OM.PC] Q24H
--- NOTE | 2017-12-20 10:47 | CR ---
INDICATION: History of heart failure, confusion. CHEST: AP upright view of the chest 12/19/2017 was compared with 09/21/2017 and 10/02/2014. The heart appears to be somewhat enlarged. The aorta is tortuous with calcification in the arch. Overlying EKG leads are noted. A definite active infiltrate or effusion was not identified. No definite CHF is present. IMPRESSION: No acute process. MTDD
== END 2017-12-19 15:29 | disposition home or self-care (01) ==
LOC: FB.ED 12:09
DX: F03.90 Unspecified dementia, unspecified severity, without behavioral disturbance, psychotic disturbance, mood disturbance, and anxiety (principal); I11.0 Hypertensive heart disease with heart failure; I50.9 Heart failure, unspecified; E78.00 Pure hypercholesterolemia, unspecified; J44.9 Chronic obstructive pulmonary disease, unspecified; E03.9 Hypothyroidism, unspecified; Z79.82 Long term (current) use of aspirin; Z79.899 Other long term (current) drug therapy; Z91.040 Latex allergy status; Z88.1 Allergy status to other antibiotic agents; Z88.0 Allergy status to penicillin; Z88.8 Allergy status to other drugs, medicaments and biological substances
CPT/HCPCS: 36415; 51701; 70450; 71045; 80053; 81001; 83880; 84484; 85025; 86140; 93005; 99285

== ENCOUNTER 2017-12-20 19:15 | Inpatient (IN) | payer MEDICARE ==
[2017-12-20] MEDS ORDERED: D5 1/2 NS w/ 20 mEq/L KCl 1,000 ML IV SCH (21:20)
[2017-12-21] MEDS ORDERED: Acetaminophen 325 MG Tab PO PRN (04:05)
[2017-12-21] MEDS ORDERED: Acetaminophen 650 MG Supp RECTAL PRN (04:13)
[2017-12-21] MEDS ORDERED: Acetaminophen/HYDROcodone 325-5 MG Tab PO PRN (04:20)
[2017-12-21] MEDS: Levothyroxine 112 MCG Tab PO SCH ×2 (06:46→08:26)
[2017-12-21] MEDS ORDERED: Cetirizine 10 MG Tab PO PRN (09:00)
[2017-12-21] MEDS: Potassium Chloride 10 MEQ Tab.ER PO SCH (09:47)
[2017-12-21] MEDS: Furosemide 20 MG Tab PO SCH ×2 (09:47→14:15)
[2017-12-21] MEDS: Clopidogrel 75 MG Tab PO SCH (09:47)
[2017-12-21] MEDS: Aspirin 81 MG Tab.EC PO SCH (09:47)
[2017-12-21] MEDS: Sodium Chloride 0.9% 10 ML Syringe FLUSH PRN (10:00)
[2017-12-21] MEDS: Enoxaparin 30 MG/0.3 ML Syringe SUBCUT SCH (10:21)
--- NOTE | 2017-12-21 11:07 | PCM.HP ---
H&P History of Present Illness - General Date of Service: 12/21/17 Admit Problem/Dx: Admission Diagnosis/Problem Admission Diagnosis/Problem Pneumonia Source of Information: Family, Old Records, Provider History Limitations: Reports: Altered Mental Status - History of Present Illness Initial Comments - Free Text/Narative: Patient is an 87-year-old female admitted last evening for altered mental status and possible pneumonia. The patient is normally cared for by her daughter at home. She's got mild to moderate dementia. Unable to fully recall current events or recent conversations but has a very good long-term memory and also very functional. Was previously getting dressed on her own with minimal help, being able to walk around with a walker in the house but hasn't been able to do that for the last 2 or 3 weeks. She has been mentally herself but has been physically getting weaker and weaker over the past couple of weeks. Wednesday night 5 nights ago she was tired earlier than usual and went to bed. When she called her daughter later in the evening she had very garbled speech and was complaining of a headache. The daughter gave her Tylenol with some water which she had no difficulty taking. Patient then woke up again in the middle the night unable to speak clearly. In the morning when she woke up this symptoms had completely resolved. Patient's daughter thought hopefully the situation had improved but Wednesday evening the symptoms then recurred again. By Wednesday when the patient was sitting in her chair to watch baptism and became unable to speak clearly, the patient was brought into the emergency room by her daughter for assessment. Her symptoms had resolved by the time they left the ER and initial workup was unrevealing. Head CT was negative for acute changes, there was a question of TIA and the patient was discharged home as she was on Plavix and aspirin. Wednesday evening the symptoms recurred again but this time she had no improvement and did not come back to baseline. She had an episode of vomiting yesterday and finally the family decided to return to the emergency department for further evaluation and treatment. Had no time had any focal weakness of the arms or legs, no focal facial droop or change in facial features. She's been much less responsive than usual, more sleepy, and when she does speak finds difficult to find words. Is almost like she is "doped". She's had no fevers, no chills, but is always cold. Actually in the last couple weeks since she had her heart valve replacement she's been warmer than usual and has been wanting to wear less clothing because she gets overheated. She's had no sinus symptoms, no cough or respiratory complaints. No c/o pain. Has had chronic dizziness and had a TAVR done 11/10 hoping this would improve her symptoms. The first 2 weeks after the procedure she did very well but then started to go downhill as above, culminating in this acute change. Past medical history: Vascular dementia Hypertension History of diastolic and systolic congestive heart failure with severe aortic stenosis which was symptomatic. Patient had an aortic valve replaced transcatheter on 11/09/17. History of cardiomegaly and pulmonary hypertension COPD Hyperlipidemia Hypothyroidism Vascular dementia Right femur fracture in July 2017. History of gastritis and gastroesophageal reflux History of peripheral edema Osteoarthritis Incontinence Carotid artery stenosis Social history: Patient lives with her daughter and is cared for at home. She has moderate dementia and is unable to do her own activities of daily living. She is a nonsmoker, nondrinker. Has 7 children. - Related Data Allergies/Adverse Reactions: Allergies Allergy/AdvReac Type Severity Reaction Status Date / Time amitriptyline Allergy Cannot Verified 09/21/17 19:35 Remember atorvastatin [From Lipitor] Allergy Numbness Verified 09/21/17 19:35 azithromycin [From Zithromax] Allergy Cannot Verified 09/21/17 19:35 Remember ciprofloxacin [From Cipro] Allergy Nausea Verified 09/21/17 19:35 latex Allergy Rash Verified 09/21/17 19:35 meclizine Allergy Dizziness Verified 09/21/17 19:35 Penicillins Allergy Hives Verified 09/21/17 19:35 Home Medications: Home Meds Furosemide [Lasix] 20 mg PO 08,14 10/02/14 [History] Simvastatin [Zocor] 10 mg PO BEDTIME 10/02/14 [History] Aspirin [Halfprin] 81 mg PO DAILY 07/30/17 [History] Cetirizine [ZyrTEC] 10 mg PO DAILY PRN 07/30/17 [History] Levothyroxine 112 mcg PO DAILY 07/30/17 [History] Sertraline HCl 50 mg PO BEDTIME 07/30/17 [History] Hydrocodone/Acetaminophen [Hydrocodon-Acetaminophen 5-325] 1 each PO Q6H PRN 03/02 [History] Clopidogrel [Plavix] 75 mg PO DAILY #30 tablet 11/18/17 [Rx] Potassium Chloride 10 meq PO DAILY #30 tablet.er 12/19/17 [Rx] Donepezil [Aricept] 5 mg PO BEDTIME 12/21/17 [History] Lisinopril 5 mg PO DAILY 12/21/17 [History] Past Medical History HEENT History: Reports: Hard of Hearing, Impaired Vision, Other (See Below) Other HEENT History: dentures Cardiovascular History: Reports: Heart Failure, Heart Murmur, High Cholesterol, Hypertension, Other (See Below) Other Cardiovascular History: edema, aortic stenosis, light headedness Respiratory History: Reports: COPD Gastrointestinal History: Reports: Gastritis, GERD, Other (See Below) Other Gastrointestinal History: gastroduodenitis Genitourinary History: Reports: Urinary Incontinence, Other (See Below) Other Genitourinary History: BLADDER SX [employer] History: Reports: Musculoskeletal History: Reports: Arthritis, Other (See Below) Other Musculoskeletal History: impaired functional mobility, balance, gait, and endurance; leg cramps Neurological History: Reports: Other (See Below) Other Neuro History: Meniere's vertigo Psychiatric History: Reports: Dementia, Depression, Other (See Below) Other Psychiatric History: gradual onset memory impairment; hypersomnolence disorder, vascular dementia without behavioral disturbance Endocrine/Metabolic History: Reports: Hypothyroidism, Obesity/BMI 30+, Other ( See Below) Other Endocrine/Metabolic History: THYROID PROBLEM NOT SURE IF HYPO OR HYPER - Infectious Disease History Infectious Disease History: Reports: Chicken Pox - Past Surgical History Other Cardiovascular Surgeries/Procedures: valve replaced GI Surgical History: Reports: Cholecystectomy Female Surgical History: Reports: Hysterectomy Social & Family History - Family History Family Medical History: Noncontributory - Tobacco Use Smoking Status *Q: Never Smoker Used Tobacco, but Quit: No Second Hand Smoke Exposure: No - Caffeine Use Caffeine Use: Reports: Coffee - Alcohol Use Days Per Week of Alcohol Use: 0 - Recreational Drug Use Recreational Drug Use: No H&P Review of Systems - Review of Systems: Review Of Systems: Unable To Obtain (As per HPI per family and ER provider.) Exam - Exam Exam: See Below - Vital Signs Vital Signs: Last Vital Signs Temp 36.8 C 12/21/17 05:00 Pulse 76 12/21/17 05:00 Resp 20 12/21/17 05:00 BP 109/55 L 12/21/17 05:00 Pulse Ox 97 12/21/17 05:00 Weight: 84.005 kg - Exam General: Alert, Cooperative HEENT: PERRLA, Mucosa Moist & Continental Neck: Supple Lungs: Clear to Auscultation (anteriorly and upper lobes clear, although left is diminished posteriorly. Right base shows coarse crackles. No wheezing, no rhonchi.) Cardiovascular: Regular Rate, Regular Rhythm, Normal S1, Normal S2 GI/Abdominal Exam: Normal Bowel Sounds, Soft, Non-Tender, No Distention Extremities: No Pedal Edema Neuro Extensive - Mental Status: Alert (Speaks but unable to tell me anything but her name. Unable to answer other questions. ) - Patient Data Lab Results Last 24 hrs: Laboratory Results - last 24 hr 12/20/17 12/20/17 12/21/17 Range/Units 20:15 20:15 06:33 WBC 14.5 H 11.4 (4.5-12.0) X10-3/uL RBC 4.64 4.22 (3.23-5.20) x10(6)uL Hgb 13.2 12.0 (11.5-15.5) g/dL Hct 40.2 36.6 (30.0-51.3) % MCV 86.7 86.6 (80-96) fL MCH 28.5 28.5 (27.7-33.6) pg MCHC 32.9 32.9 (32.2-35.4) g/dL RDW 15.0 15.0 (11.5-15.5) % Plt Count 242 130 (125-369) X10(3)uL MPV 6.7 L 7.0 L (7.4-10.4) fL Neut % (Auto) 77.9 66.1 (46-82) % Lymph % (Auto) 11.2 L 19.1 (13-37) % Bureau % (Auto) 7.0 9.9 (4-12) % Eos % (Auto) 1 2 (1.0-5.0) % Baso % (Auto) 3 H 3 H (0-2) % Neut # (Auto) 11.4 H 7.6 (1.6-8.3) # Lymph # (Auto) 1.6 2.2 (0.6-5.0) # Bureau # (Auto) 1.0 1.1 (0.0-1.3) # Eos # (Auto) 0.1 0.2 (0.0-0.8) # Baso # (Auto) 0.4 H 0.3 H (0.0-0.2) # Sodium (135-145) mmol/L Potassium (3.5-5.3) mmol/L Chloride (100-110) mmol/L Carbon Dioxide (21-32) mmol/L BUN (7-18) mg/dL Creatinine (0.55-1.02) mg/dL Est Cr Clr Drug Dosing Estimated GFR (MDRD) (>60) BUN/Creatinine Ratio (9-20) Glucose (80-116) mg/dL Calcium (8.6-10.2) mg/dL C-Reactive Protein 0.3 L (0.5-0.9) mg/dL 12/21/17 Range/Units 06:33 WBC (4.5-12.0) X10-3/uL RBC (3.23-5.20) x10(6)uL Hgb (11.5-15.5) g/dL Hct (30.0-51.3) % MCV (80-96) fL MCH (27.7-33.6) pg MCHC (32.2-35.4) g/dL RDW (11.5-15.5) % Plt Count (125-369) X10(3)uL MPV (7.4-10.4) fL Neut % (Auto) (46-82) % Lymph % (Auto) (13-37) % Bureau % (Auto) (4-12) % Eos % (Auto) (1.0-5.0) % Baso % (Auto) (0-2) % Neut # (Auto) (1.6-8.3) # Lymph # (Auto) (0.6-5.0) # Bureau # (Auto) (0.0-1.3) # Eos # (Auto) (0.0-0.8) # Baso # (Auto) (0.0-0.2) # Sodium 139 (135-145) mmol/L Potassium 3.6 (3.5-5.3) mmol/L Chloride 102 (100-110) mmol/L Carbon Dioxide 26 (21-32) mmol/L BUN 16 (7-18) mg/dL Creatinine 0.9 (0.55-1.02) mg/dL Est Cr Clr Drug Dosing TNP Estimated GFR (MDRD) 59 L (>60) BUN/Creatinine Ratio 17.8 (9-20) Glucose 118 H (80-116) mg/dL Calcium 9.5 (8.6-10.2) mg/dL C-Reactive Protein (0.5-0.9) mg/dL Result Diagrams: 12/21/17 06:33 12/21/17 06:33 - Problem List (1) Pneumonia, aspiration SNOMED Code(s): 664889817 ICD Code: J69.0 - PNEUMONITIS DUE TO INHALATION OF FOOD AND VOMIT Status: Acute Current Visit: Yes Problem Details: Question after reviewing films with old images, I don't see any infiltrate. The patient is at risk for aspiration particularly with recent mental changes, but no report by family of possible aspiration events. I am going to stop the levaquin. (2) Aortic stenosis SNOMED Code(s): 70928188 ICD Code: I35.0 - NONRHEUMATIC AORTIC (VALVE) STENOSIS Status: Chronic Current Visit: No Problem Details: Status post transcatheter aortic valve replacement with a bioprosthetic valve on 11/10/17. Qualifiers: Cardiac valve disease etiology: etiology unspecified Qualified Code(s): I35.0 - Nonrheumatic aortic (valve) stenosis (3) Dementia SNOMED Code(s): 55996706 ICD Code: F03.90 - UNSPECIFIED DEMENTIA WITHOUT BEHAVIORAL DISTURBANCE Status: Chronic Current Visit: No Problem Details: Now with significant acute change in mental status. I suspect patient has had an acute infarct. For now, will continue current meds. Will order MRI of brain to further assess. Will get CT now to rule out bleed since patient is on blood thinners and hasn't been repeated with new change in mentation. MRI won't be able to be done until tomorrow. Qualifiers: Dementia type: vascular dementia Dementia behavioral disturbance: without behavioral disturbance Qualified Code(s): F01.50 - Vascular dementia without behavioral disturbance (4) HTN (hypertension) SNOMED Code(s): 03452231 ICD Code: I10 - ESSENTIAL (PRIMARY) HYPERTENSION Status: Chronic Current Visit: No Problem Details: Allow permissive hypertension if no bleed. Continue current meds only. Qualifiers: Hypertension type: essential hypertension Qualified Code(s): I10 - Essential (primary) hypertension (5) Combined congestive systolic and diastolic heart failure SNOMED Code(s): 84089572, 093656181 ICD Code: I50.40 - UNSP COMBINED SYSTOLIC AND DIASTOLIC (CONGESTIVE) HRT FAIL Status: Acute Current Visit: Yes Problem Details: No evidence of failure and most recent echo showed normal EF. Monitor. (6) DVT prophylaxis SNOMED Code(s): 370928487, 241583324 ICD Code: [id number] - Status: Acute Current Visit: Yes Problem Details: SCDs, Lovenox. Has had a considerable drop in her platelets although still at 130,000. Monitor. Problem List Initiated/Reviewed/Updated: Yes Orders Last 24hrs: Active Orders 24 hr Category Date Time Status Patient Status [ADT] Routine ADT 12/20/17 21:20 Active Height and Weight [RC] DAILY Care 12/21/17 10:59 Ordered Intake and Output [RC] QSHIFT Care 12/21/17 10:59 Ordered Oxygen Therapy [RC] PRN Care 12/21/17 10:59 Ordered VTE/DVT Education [RC] Per Unit Routine Care 12/21/17 10:59 Ordered Vital Signs [RC] Q4H Care 12/21/17 10:59 Ordered OT Evaluation and Treatment [CONS] Routine Cons 12/21/17 09:58 Active PT Evaluation and Treatment [CONS] Routine Cons 12/21/17 09:58 Active Chest 1V Frontal [CR] Routine Exams 12/20/17 18:00 Taken Acetaminophen [Tylenol] Med 12/21/17 04:05 Active 650 mg PO Q4H PRN Acetaminophen [Tylenol] Med 12/21/17 04:13 Active 650 mg RECTAL Q4H PRN Acetaminophen/HYDROcodone [[place] 325-5 MG] Med 12/21/17 04:20 Active 1 tab PO Q6H PRN Aspirin [Halfprin] Med 12/21/17 09:00 Active 81 mg PO DAILY Cetirizine [ZyrTEC] Med 12/21/17 09:00 Active 10 mg PO DAILY PRN Clopidogrel [Plavix] Med 12/21/17 09:00 Active 75 mg PO DAILY Donepezil [Aricept] Med 12/21/17 21:00 Ordered 5 mg PO BEDTIME Enoxaparin [Lovenox] Med 12/21/17 09:00 Active 30 mg SUBCUT Q24H Furosemide [Lasix] Med 12/21/17 08:00 Active 20 mg PO 08,14 Levofloxacin [Levaquin] Med 12/22/17 22:00 Active 750 mg PO Q48H Levothyroxine Med 12/21/17 06:00 Active 112 mcg PO DAILY Lisinopril [Prinivil] Med 12/22/17 09:00 Ordered 5 mg PO DAILY Potassium Chloride [Klor-Con 10] Med 12/21/17 09:00 Active 10 meq PO DAILY Sertraline [Zoloft] Med 12/21/17 21:00 Active 50 mg PO BEDTIME Simvastatin [Zocor] Med 12/21/17 21:00 Active 10 mg PO BEDTIME Sodium Chloride 0.9% [Saline Flush] Med 12/21/17 10:29 Active 10 ml FLUSH ASDIRECTED PRN Convert IV to Peripheral Lock [Convert IV to Saline Oth 12/21/17 08:09 Ordered Lock] [OM.PC] Stat Sequential Compression Device [OM.PC] Per Unit Routine Oth 12/21/17 11:00 Ordered Resuscitation Status Routine Resus Stat 12/21/17 04:05 Ordered Medication Orders Acetaminophen (Tylenol) 650 mg PO Q4H PRN PRN Reason: fever or pain Acetaminophen (Tylenol) 650 mg RECTAL Q4H PRN PRN Reason: pain or fever Hydrocodone Bitart/Acetaminophen ([place] 325-5 Mg) 1 tab PO Q6H PRN PRN Reason: Pain Aspirin (Halfprin) 81 mg PO DAILY [facility] Last Admin: 12/21/17 09:47 Dose: 81 mg Cetirizine HCl (Zyrtec) 10 mg PO DAILY PRN PRN Reason: Itching Clopidogrel Bisulfate (Plavix) 75 mg PO DAILY [facility] Last Admin: 12/21/17 09:47 Dose: 75 mg Enoxaparin Sodium (Lovenox) 30 mg SUBCUT Q24H [facility] Last Admin: 12/21/17 10:21 Dose: 30 mg Furosemide (Lasix) 20 mg PO 08,14 [facility] Last Admin: 12/21/17 09:47 Dose: 20 mg Levofloxacin (Levaquin) 750 mg PO Q48H [facility] Levothyroxine Sodium (Levothyroxine) 112 mcg PO DAILY [facility] Last Admin: 12/21/17 08:26 Dose: Admin: 12/21/17 06:46 Dose: 112 mcg Potassium Chloride (Klor-Con 10) 10 meq PO DAILY [facility] Last Admin: 12/21/17 09:47 Dose: 10 meq Sertraline HCl (Zoloft) 50 mg PO BEDTIME [facility] Simvastatin (Zocor) 10 mg PO BEDTIME [facility] Sodium Chloride (Saline Flush) 10 ml FLUSH ASDIRECTED PRN PRN Reason: Keep Vein Open Assessment/Plan Comment:: Discussed CODE STATUS at length with the patient's daughter and son who are here. The patient made up her own mind to be DNR/DNI previously. If it comes to a matter of doing procedures or interventions that would be painful and have low likelihood of patient being able to return home, the patient would prefer comfort measures. At this point, we will move forward with trying to sort out the diagnosis and then further discussion regarding treatment options can be had with the family.
--- NOTE | 2017-12-21 11:18 | CR ---
INDICATION: Lethargic. CHEST: An AP upright view of the chest on 12/20/2017 was compared with 2017 and 09/21/2017. The heart appears prominent, emphasized by AP positioning and poor inspiration. The aorta is tortuous and calcified. Overlying EKG leads are noted. Somewhat prominent pulmonary vasculature is noted in the upper lung steele, compared with the previous study. A mild degree of CHF or early CHF could be present. This should be correlated clinically. Additionally, there appears to be some infiltration behind the heart in the left lower lobe. This could be on the basis of pneumonia. IMPRESSION: 1. Possible left lower lobe pneumonia versus fibrosis. 2. ASHD, probable cardiomegaly. 3. Cannot exclude a mild or early CHF. MTDD
--- NOTE | 2017-12-21 15:22 | CT ---
INDICATION: Stroke symptoms, no anticoagulants, look for bleed. CT HEAD WITHOUT CONTRAST: Serial contiguous 2.5 and 5 mm sections were obtained through the brain 12/21/2017 and compared with 12/19/2017. Total exam DLP = 950.31 mGy-cm. Calcifications are noted in the vertebral and internal carotid arteries, as previously. No significant appearing interval shift of midline structures is noted. Ventricles are prominent, compatible with central atrophy and the patients age. White matter changes are noted, compatible with moderate microvascular disease, although other cause of leukoencephalopathy cannot be excluded. No other abnormal areas of density were identified - no bleeding site or hematoma was seen. Thickening of the lining near the base of the left maxillary antrum is noted. Paranasal sinuses are otherwise unremarkable. Left mastoid air cells appear to be well-aerated with evidence of right mastoidectomy. The cranium appears to be intact. IMPRESSION: 1. No definite acute intracranial abnormality. 2. Moderate microvascular disease - other cause of leukoencephalopathy cannot be excluded. 3. Arterial calcifications compatible with cerebrovascular disease. 4. Mild central atrophy. 5. Thickening of the lining of the left maxillary antrum to a mild degree. MTDD
[2017-12-21] MEDS: Simvastatin 10 MG Tab PO SCH (20:29)
[2017-12-21] MEDS: Donepezil 5 MG Tab PO SCH (20:29)
[2017-12-21] MEDS: Sertraline 50 MG Tab PO SCH (20:29)
[2017-12-21] MEDS ORDERED: Levofloxacin/Dextrose 5%-Water 750 MG in Premix Bag 1 BAG IV SCH (22:00)
[2017-12-22] MEDS: Sodium Chloride 0.9% 10 ML Syringe FLUSH PRN (07:57)
[2017-12-22] MEDS: Aspirin 81 MG Tab.EC PO SCH (08:07)
[2017-12-22] MEDS: Levothyroxine 112 MCG Tab PO SCH (08:07)
[2017-12-22] MEDS: Furosemide 20 MG Tab PO SCH ×2 (08:07→13:22)
[2017-12-22] MEDS: Lisinopril 5 MG Tab PO SCH (08:08)
[2017-12-22] MEDS: Clopidogrel 75 MG Tab PO SCH (08:08)
[2017-12-22] MEDS: Enoxaparin 30 MG/0.3 ML Syringe SUBCUT SCH (08:08)
[2017-12-22] MEDS: Potassium Chloride 10 MEQ Tab.ER PO SCH (08:08)
--- NOTE | 2017-12-22 09:05 | PCM.PN ---
- General Info Date of Service: 12/22/17 Subjective Update: Patient is an 87-year-old female currently on hospital day #3 for altered mental status. Patient's mental status has cleared significantly. She's able to verbally answer questions appropriately. Still struggles to follow complex commands. Is able to feed herself. Recognizes me as her doctor from yesterday. Denies chest pain, shortness of breath, nausea, vomiting. No diarrhea. PT and OT are working with her. Family has decided to consider prison placement, likely will be able to be discharged tomorrow. - Patient Data Vitals - Most Recent: Last Vital Signs Temp 36.6 C 12/22/17 03:45 Pulse 76 12/22/17 03:45 Resp 20 12/22/17 03:45 BP 140/76 12/22/17 08:08 Pulse Ox 98 12/22/17 03:45 Weight - Most Recent: 83.325 kg I&O - Last 24 Hours: Intake & Output 12/21/17 12/22/17 12/22/17 22:59 06:59 14:59 Intake Total 540 Output Total 200 Balance 540 -200 Lab Results Last 24 Hours: Laboratory Results - last 24 hr 12/22/17 12/22/17 Range/Units 06:10 06:10 WBC 11.1 (4.5-12.0) X10-3/uL RBC 4.26 (3.23-5.20) x10(6)uL Hgb 12.2 (11.5-15.5) g/dL Hct 36.3 (30.0-51.3) % MCV 85.2 (80-96) fL MCH 28.7 (27.7-33.6) pg MCHC 33.6 (32.2-35.4) g/dL RDW 14.8 (11.5-15.5) % Plt Count 177 (125-369) X10(3)uL MPV 7.5 (7.4-10.4) fL Neut % (Auto) 69.2 (46-82) % Lymph % (Auto) 20.3 (13-37) % [place] % (Auto) 8.4 (4-12) % Eos % (Auto) 2 (1.0-5.0) % Baso % (Auto) 1 (0-2) % Neut # (Auto) 7.7 (1.6-8.3) # Lymph # (Auto) 2.2 (0.6-5.0) # [place] # (Auto) 0.9 (0.0-1.3) # Eos # (Auto) 0.2 (0.0-0.8) # Baso # (Auto) 0.1 (0.0-0.2) # Sodium 138 (135-145) mmol/L Potassium 3.3 L (3.5-5.3) mmol/L Chloride 100 (100-110) mmol/L Carbon Dioxide 27 (21-32) mmol/L BUN 14 (7-18) mg/dL Creatinine 1.0 (0.55-1.02) mg/dL Est Cr Clr Drug Dosing TNP Estimated GFR (MDRD) 52 L (>60) BUN/Creatinine Ratio 14.0 (9-20) Glucose 113 (80-116) mg/dL Calcium 9.4 (8.6-10.2) mg/dL Med Orders - Current: Current Medications Acetaminophen (Tylenol) 650 mg PO Q4H PRN PRN Reason: fever or pain Acetaminophen (Tylenol) 650 mg RECTAL Q4H PRN PRN Reason: pain or fever Hydrocodone Bitart/Acetaminophen ([place] 325-5 Mg) 1 tab PO Q6H PRN PRN Reason: Pain Aspirin (Halfprin) 81 mg PO DAILY [facility] Last Admin: 12/22/17 08:07 Dose: 81 mg Cetirizine HCl (Zyrtec) 10 mg PO DAILY PRN PRN Reason: Itching Clopidogrel Bisulfate (Plavix) 75 mg PO DAILY [facility] Last Admin: 12/22/17 08:08 Dose: 75 mg Donepezil HCl (Aricept) 5 mg PO BEDTIME [facility] Last Admin: 12/21/17 20:29 Dose: 5 mg Enoxaparin Sodium (Lovenox) 30 mg SUBCUT Q24H [facility] Last Admin: 12/22/17 08:08 Dose: 30 mg Furosemide (Lasix) 20 mg PO 08,14 [facility] Last Admin: 12/22/17 08:07 Dose: 20 mg Levothyroxine Sodium (Levothyroxine) 112 mcg PO DAILY [facility] Last Admin: 12/22/17 08:07 Dose: 112 mcg Lisinopril (Prinivil) 5 mg PO DAILY [facility] Last Admin: 12/22/17 08:08 Dose: 5 mg Potassium Chloride (Klor-Con 10) 10 meq PO DAILY [facility] Last Admin: 12/22/17 08:08 Dose: 10 meq Sertraline HCl (Zoloft) 50 mg PO BEDTIME [facility] Last Admin: 12/21/17 20:29 Dose: 50 mg Simvastatin (Zocor) 10 mg PO BEDTIME [facility] Last Admin: 12/21/17 20:29 Dose: 10 mg Sodium Chloride (Saline Flush) 10 ml FLUSH ASDIRECTED PRN PRN Reason: Keep Vein Open Last Admin: 12/22/17 07:57 Dose: 10 ml Discontinued Medications Potassium Chloride/Dextrose/Sod Cl (D5 1/2 Ns W/ 20 Meq/L Kcl) 1,000 mls @ 75 mls/hr IV ASDIRECTED [facility] Levofloxacin/Dextrose 750 mg/ (Premix) 150 mls @ 100 mls/hr IV Q24H [facility] Levofloxacin (Levaquin) 750 mg PO Q48H [facility] - Exam General: Alert, Cooperative, No Acute Distress HEENT: Pupils Equal, Pupils Reactive Neck: Supple Lungs: Clear to Auscultation, Normal Respiratory Effort Cardiovascular: Regular Rate, Regular Rhythm, No Murmurs GI/Abdominal Exam: Normal Bowel Sounds, Soft, Non-Tender, No Distention Extremities: No Pedal Edema Psy/Mental Status: Alert - Problem List & Annotations (1) Pneumonia, aspiration SNOMED Code(s): 653927795 Code(s): J69.0 - PNEUMONITIS DUE TO INHALATION OF FOOD AND VOMIT Status: Acute Current Visit: Yes Annotation/Comment:: I do not believe the patient has pneumonia at this time or that her recent hospitalization was related to pneumonia. However I do believe that she is at risk for aspiration and would recommend swallow evaluation as an outpatient. (2) Aortic stenosis SNOMED Code(s): 70097807 Code(s): I35.0 - NONRHEUMATIC AORTIC (VALVE) STENOSIS Status: Chronic Current Visit: No Qualifiers: Cardiac valve disease etiology: etiology unspecified Qualified Code(s): I35.0 - Nonrheumatic aortic (valve) stenosis Annotation/Comment:: Status post transcatheter aortic valve replacement with a bioprosthetic valve on 11/10/17. (3) Dementia SNOMED Code(s): 54788776 Code(s): F03.90 - UNSPECIFIED DEMENTIA WITHOUT BEHAVIORAL DISTURBANCE Status: Chronic Current Visit: No Qualifiers: Dementia type: vascular dementia Dementia behavioral disturbance: without behavioral disturbance Qualified Code(s): F01.50 - Vascular dementia without behavioral disturbance Annotation/Comment:: CT head was negative for acute bleed. Recommend MRI today to evaluate for stroke. Continue PT/OT and pursuing placement in prison per family's wishes. (4) HTN (hypertension) SNOMED Code(s): 02131325 Code(s): I10 - ESSENTIAL (PRIMARY) HYPERTENSION Status: Chronic Current Visit: No Qualifiers: Hypertension type: essential hypertension Qualified Code(s): I10 - Essential (primary) hypertension Annotation/Comment:: Allow permissive hypertension if no bleed. Continue current meds only. 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 Monitor. (6) DVT prophylaxis SNOMED Code(s): 807640124, 837020021 Code(s): VUG5874 - Status: Acute Current Visit: Yes Annotation/Comment :: SCDs, Lovenox. Platelets rebounded to 177,000, continue DVT prophylaxis. - Problem List Review Problem List Initiated/Reviewed/Updated: Yes - My Orders Last 24 Hours: My Active Orders 12/21/17 08:09 Convert IV to Peripheral Lock [Convert IV to Saline Lock] [OM.PC] Stat 12/21/17 09:58 OT Evaluation and Treatment [CONS] Routine PT Evaluation and Treatment [CONS] Routine 12/21/17 10:29 Sodium Chloride 0.9% [Saline Flush] 10 ml FLUSH ASDIRECTED PRN 12/21/17 10:59 Height and Weight [RC] 06 Intake and Output [RC] 06,14,22 Oxygen Therapy [RC] PRN Vital Signs [RC] 08,12,16,20,00,04 12/21/17 11:00 Sequential Compression Device [OM.PC] Per Unit Routine 12/21/17 12:42 IS (RT) [RT Incentive Spirometry] [RC] ASDIRECTED 12/21/17 21:00 Donepezil [Aricept] 5 mg PO BEDTIME 12/21/17 Lunch Heart Healthy Diet [DIET] 12/22/17 08:00 Brain wo Cont [MR] Routine 12/22/17 09:00 Lisinopril [Prinivil] 5 mg PO DAILY - Plan Plan:: Discussed CODE STATUS at length with the patient's daughter and son on admission. The patient made up her own mind to be DNR/DNI previously. If it comes to a matter of doing procedures or interventions that would be painful and have low likelihood of patient being able to return home, the patient would prefer comfort measures.
[2017-12-22] MEDS: Sertraline 50 MG Tab PO SCH (20:09)
[2017-12-22] MEDS: Donepezil 5 MG Tab PO SCH (20:09)
[2017-12-22] MEDS: Simvastatin 10 MG Tab PO SCH (20:09)
[2017-12-22] MEDS ORDERED: Levofloxacin 750 MG Tab PO SCH (22:00)
[2017-12-23] MEDS: Furosemide 20 MG Tab PO SCH ×2 (08:00→13:24)
[2017-12-23] MEDS: Aspirin 81 MG Tab.EC PO SCH (08:00)
[2017-12-23] MEDS: Sodium Chloride 0.9% 10 ML Syringe FLUSH PRN (08:00)
[2017-12-23] MEDS: Potassium Chloride 10 MEQ Tab.ER PO SCH (08:00)
[2017-12-23] MEDS: Clopidogrel 75 MG Tab PO SCH (08:01)
[2017-12-23] MEDS: Enoxaparin 30 MG/0.3 ML Syringe SUBCUT SCH (08:01)
[2017-12-23] MEDS: Lisinopril 5 MG Tab PO SCH (08:04)
[2017-12-23] MEDS: Levothyroxine 112 MCG Tab PO SCH (08:13)
--- NOTE | 2017-12-23 13:29 | PCM.DCSUM1 ---
Discharge Summary - Hospital Course Free Text/Narrative:: Date of admission: 12/20/17 Date of discharge: 12/24/17 Admission diagnosis: Altered mental status, possible pneumonia. Discharge diagnosis: Altered mental status secondary to CVA with expressive aphasia, with new left-sided hemiplegia symptoms in hospital which resolved spontaneously. Consults: None Procedures: Head CT showed no evidence of bleed, MRI of the brain showed extensive microvascular disease. Patient had a second round of stroke symptoms at the time immediately following the MRI and so the patient was not reimaged. History of present illness: Patient is an 87-year-old female who recently underwent transcatheter aortic valve replacement on 11/10/17 for dizziness and weakness. She has known dementia and they were hoping that this would improve her quality of life and help her to be able to remain at home, preventing falls. Unfortunately, although the patient did well initially for the first couple of weeks, mid November she started to decline in her overall function. 4 weakness and confusion, worsening independence at home, requiring more help from her daughter who is her full- time caregiver. Starting Wednesday night prior to admission the patient started to have stuttering intermittent symptoms of garbled speech and difficulty communicating. This went on for 3 days and after her trip into the emergency department, they were discharged home. On the day of admission they came back in because the symptoms came on and did not resolve. The patient was completely unable to speak and minimally responsive to outside stimuli at the time of presentation for admission. She was admitted with the thought being a possible pneumonia because her chest x-ray was abnormal and started on IV antibiotic therapy. Hospital course: On the day following admission, the patient's mental status had cleared significantly. She had no respiratory symptoms, no cough, nothing to suggest a pneumonia but did clinically have expressive aphasia which was strongly suggestive of CVA. She underwent further imaging with a negative head CT and then subsequently an MRI which showed extensive microvascular disease. At the time of the MRI she became nauseated and when they tried to remove her from the table, discovered she had a left hemiplegia with complete paralysis of the left upper extremity and partial paralysis of the left lower extremity. She also had some discomfort in the left face. The symptoms resolved within 24 hours of onset. After extensive discussion with the family, patient's current medications are maximized, good blood pressure control will reduce her risk of stroke, telemetry showed no evidence of atrial fibrillation, and the recommendation was to go ahead and discharge the patient to retirement level care for ongoing physical therapy and occupational therapy. If she recovers adequately she may be able to return home but we cannot predict whether or not she'll continue to have intermittent episodes of stroke symptoms. See below for Hospital course by problem. Discharge instructions: Patient will be discharged to half-way facility. She should continue physical therapy and occupational therapy for stroke rehabilitation. I would recommend consideration for an outpatient swallow eval because of the speech difficulty she had with this initial stroke presentation. However she had no evidence of choking or coughing with eating here in the hospital. Hold blood pressure medications if systolic blood pressure is less than 110. Follow-up with PCP in one week. - Discharge Data Discharge Date: 12/23/17 Discharge Disposition: DC/Tfer to SNF 03 Condition: Good - Discharge Diagnosis/Problem(s) (1) Acute ischemic stroke SNOMED Code(s): 126289603, 898487182 ICD Code: I63.9 - CEREBRAL INFARCTION, UNSPECIFIED Status: Acute Current Visit: Yes Problem Details: Patient had initial presenting aphasia which was likely secondary to accumulation of small vascular infarcts. She had a second episode the day of MRI which resulted in left-sided weakness in the upper and lower extremity and a tingling sensation on the left face. The left facial symptoms resolved within 30 minutes and by the following day the left arm and leg weakness was gone. Family and patient him in struggling at home with the patient's continued weakness since her valve surgery. Recommend retirement placement for the time being with rehabilitation with physical therapy and occupational therapy for stroke care. Patient is maximized medically currently with good blood pressure control, Plavix and aspirin for anticoagulation recommended for her heart valve, statin therapy, and discussed with family that we cannot predict whether or not these episodes will continue to recur. They would like to continue medical treatment and if her condition worsens comfort cares. (2) Pneumonia, aspiration SNOMED Code(s): 529574135 ICD Code: J69.0 - PNEUMONITIS DUE TO INHALATION OF FOOD AND VOMIT Status: Acute Current Visit: Yes Problem Details: I do not believe the patient has pneumonia at this time or that her recent hospitalization was related to pneumonia. However I do believe that she is at risk for aspiration and would recommend swallow evaluation as an outpatient. (3) Aortic stenosis SNOMED Code(s): 31817033 ICD Code: I35.0 - NONRHEUMATIC AORTIC (VALVE) STENOSIS Status: Chronic Current Visit: No Problem Details: Status post transcatheter aortic valve replacement with a bioprosthetic valve on 11/10/17. Qualifiers: Cardiac valve disease etiology: etiology unspecified Qualified Code(s): I35.0 - Nonrheumatic aortic (valve) stenosis (4) Dementia SNOMED Code(s): 92006233 ICD Code: F03.90 - UNSPECIFIED DEMENTIA WITHOUT BEHAVIORAL DISTURBANCE Status: Chronic Current Visit: No Problem Details: MRI showed significant vascular changes consistent with vascular dementia. Qualifiers: Dementia type: vascular dementia Dementia behavioral disturbance: without behavioral disturbance Qualified Code(s): F01.50 - Vascular dementia without behavioral disturbance (5) HTN (hypertension) SNOMED Code(s): 82216670 ICD Code: I10 - ESSENTIAL (PRIMARY) HYPERTENSION Status: Chronic Current Visit: No Problem Details: Recent has been slightly hypotensive today. Hold antihypertensives until blood pressure requires medication to keep under 140 systolic. Qualifiers: Hypertension type: essential hypertension Qualified Code(s): I10 - Essential (primary) hypertension (6) Combined congestive systolic and diastolic heart failure SNOMED Code(s): 45289341, 774536606 ICD Code: I50.40 - UNSP COMBINED SYSTOLIC AND DIASTOLIC (CONGESTIVE) HRT FAIL Status: Acute Current Visit: Yes Problem Details: No evidence of failure and most recent echo showed normal EF. Monitor. (7) DVT prophylaxis SNOMED Code(s): 572865350, 250537087 ICD Code: RPD1145 - Status: Acute Current Visit: Yes Problem Details: SCDs, Lovenox until discharge. - Patient Summary/Data Consults: Consultations 12/21/17 09:58 OT Evaluation and Treatment [CONS] Routine Please Evaluate and Treat. OT Reason for Consult: Strengthening This query below is only for informational purposes and is not editable. Admission Diagnosis/Problem: Pneumonia PT Evaluation and Treatment [CONS] Routine Please Evaluate and Treat. PT Reason for Consult: Strengthening This query below is only for informational purposes and is not editable. Admission Diagnosis/Problem: Pneumonia - Patient Instructions Diet: Heart Healthy Diet, Low Sodium Other/Special Instructions: Continue PT/OT for stroke treatment. Hold blood pressure medications (lisinopril and Lasix) if systolic blood pressure less than 110. Follow-up with primary care provider within the week for recheck. - Discharge Plan Home Medications: Home Meds Furosemide [Lasix] 20 mg PO 08,14 10/02/14 [History] Simvastatin [Zocor] 10 mg PO BEDTIME 10/02/14 [History] Aspirin [Halfprin] 81 mg PO DAILY 07/30/17 [History] Cetirizine [ZyrTEC] 10 mg PO DAILY PRN 07/30/17 [History] Levothyroxine 112 mcg PO DAILY 07/30/17 [History] Sertraline HCl 50 mg PO BEDTIME 07/30/17 [History] Hydrocodone/Acetaminophen [Hydrocodon-Acetaminophen 5-325] 1 each PO Q6H PRN 03/02 [History] Clopidogrel [Plavix] 75 mg PO DAILY #30 tablet 11/18/17 [Rx] Potassium Chloride 10 meq PO DAILY #30 tablet.er 12/19/17 [Rx] Donepezil [Aricept] 5 mg PO BEDTIME 12/21/17 [History] Lisinopril 5 mg PO DAILY #0 12/23/17 [Rx] Referrals: Cristopher Madden MD [Primary Care Provider] - - General Info Date of Service: 12/23/17 Subjective Update: This discharge summary was completed on the day prior to transfer to retirement as they were unable to accept her on the day she was ready for discharge. On that day, the patient was doing well. She had no complaints. She had regained complete function of her left upper and lower extremity. Physical therapy was working with her and felt she was back to her baseline prior to those left hemiplegia symptoms. She knew who I was and was aware of her she was at. Denied chest pain and shortness of breath. No nausea or vomiting. No diarrhea. - Patient Data Vitals - Most Recent: Last Vital Signs Temp 36.7 C 12/23/17 11:21 Pulse 75 12/23/17 11:21 Resp 18 12/23/17 11:21 BP 103/54 L 12/23/17 11:21 Pulse Ox 98 12/23/17 11:21 Weight - Most Recent: 83.552 kg I&O - Last 24 hours: Intake & Output 05/09/18 05/10/18 05/10/18 22:59 06:59 14:59 Intake Total 100 100 360 Output Total 0 200 Balance 100 100 160 Lab Results - Last 24 hrs: Laboratory Results - last 24 hr 12/22/17 12/22/17 12/23/17 Range/Units 16:39 21:10 07:33 POC Glucose 143 H 124 H 113 (80-116) mg/dL 12/23/17 Range/Units 11:22 POC Glucose 122 H (80-116) mg/dL Med Orders - Current: Current Medications Acetaminophen (Tylenol) 650 mg PO Q4H PRN PRN Reason: fever or pain Last Admin: 12/22/17 15:30 Dose: 650 mg Acetaminophen (Tylenol) 650 mg RECTAL Q4H PRN PRN Reason: pain or fever Hydrocodone Bitart/Acetaminophen ([place] 325-5 Mg) 1 tab PO Q6H PRN PRN Reason: Pain Aspirin (Halfprin) 81 mg PO DAILY [facility] Last Admin: 12/23/17 08:00 Dose: 81 mg Cetirizine HCl (Zyrtec) 10 mg PO DAILY PRN PRN Reason: Itching Clopidogrel Bisulfate (Plavix) 75 mg PO DAILY [facility] Last Admin: 12/23/17 08:01 Dose: 75 mg Donepezil HCl (Aricept) 5 mg PO BEDTIME [facility] Last Admin: 12/22/17 20:09 Dose: 5 mg Enoxaparin Sodium (Lovenox) 30 mg SUBCUT Q24H [facility] Last Admin: 12/23/17 08:01 Dose: 30 mg Furosemide (Lasix) 20 mg PO 08,14 [facility] Last Admin: 12/23/17 08:00 Dose: 20 mg Levothyroxine Sodium (Levothyroxine) 112 mcg PO DAILY [facility] Last Admin: 12/23/17 08:13 Dose: 112 mcg Lisinopril (Prinivil) 5 mg PO DAILY [facility] Last Admin: 12/23/17 08:04 Dose: Not Given Potassium Chloride (Klor-Con 10) 10 meq PO DAILY [facility] Last Admin: 12/23/17 08:00 Dose: 10 meq Sertraline HCl (Zoloft) 50 mg PO BEDTIME [facility] Last Admin: 12/22/17 20:09 Dose: 50 mg Simvastatin (Zocor) 10 mg PO BEDTIME [facility] Last Admin: 12/22/17 20:09 Dose: 10 mg Sodium Chloride (Saline Flush) 10 ml FLUSH ASDIRECTED PRN PRN Reason: Keep Vein Open Last Admin: 12/23/17 08:00 Dose: 10 ml Discontinued Medications Potassium Chloride/Dextrose/Sod Cl (D5 1/2 Ns W/ 20 Meq/L Kcl) 1,000 mls @ 75 mls/hr IV ASDIRECTED [facility] Levofloxacin/Dextrose 750 mg/ (Premix) 150 mls @ 100 mls/hr IV Q24H [facility] Levofloxacin (Levaquin) 750 mg PO Q48H [facility] - Exam General: Reports: Alert, Cooperative, No Acute Distress HEENT: Reports: Pupils Equal, Pupils Reactive Neck: Reports: Supple Lungs: Reports: Clear to Auscultation, Normal Respiratory Effort Cardiovascular: Reports: Regular Rate, Regular Rhythm, No Murmurs GI/Abdominal Exam: Normal Bowel Sounds, Soft, Non-Tender, No Distention Back Exam: Reports: Normal Inspection Extremities: No Pedal Edema Neurological: Reports: Other (No facial droop. Patient was able to raise and lower her left upper extremity and had good grasp on the hand which was new since yesterday. She was also able to move her left lower extremity and had good flexion and extension at the ankle. Was able to ambulate with physical therapy without difficulty.)
[2017-12-23] MEDS: Donepezil 5 MG Tab PO SCH (20:01)
[2017-12-23] MEDS: Sertraline 50 MG Tab PO SCH (20:02)
[2017-12-23] MEDS: Simvastatin 10 MG Tab PO SCH (20:04)
[2017-12-24 07:30] VITALS: BP 135/82
--- NOTE | 2017-12-24 07:47 | PCM.PN ---
- General Info Date of Service: 12/24/17 Admission Dx/Problem (Free Text): Patient is without complaints. She states she does not have any fevers, cough, chest pain, leg swelling - Patient Data Vitals - Most Recent: Last Vital Signs Temp 98.5 F 12/24/17 07:30 Pulse 96 12/24/17 07:30 Resp 20 12/24/17 07:30 BP 135/82 12/24/17 07:30 Pulse Ox 96 12/24/17 07:30 Weight - Most Recent: 188 lb I&O - Last 24 Hours: Intake & Output 12/23/17 12/24/17 12/24/17 22:59 06:59 14:59 Intake Total 250 Output Total 500 Balance -250 Lab Results Last 24 Hours: Laboratory Results - last 24 hr 12/23/17 12/23/17 12/23/17 Range/Units 07:33 11:22 17:48 POC Glucose 113 122 H 126 H (80-116) mg/dL 12/23/17 12/24/17 Range/Units 22:20 06:18 POC Glucose 132 H 136 H (80-116) mg/dL Med Orders - Current: Current Medications Acetaminophen (Tylenol) 650 mg PO Q4H PRN PRN Reason: fever or pain Last Admin: 12/22/17 15:30 Dose: 650 mg Acetaminophen (Tylenol) 650 mg RECTAL Q4H PRN PRN Reason: pain or fever Hydrocodone Bitart/Acetaminophen ([place] 325-5 Mg) 1 tab PO Q6H PRN PRN Reason: Pain Aspirin (Halfprin) 81 mg PO DAILY [facility] Last Admin: 12/23/17 08:00 Dose: 81 mg Cetirizine HCl (Zyrtec) 10 mg PO DAILY PRN PRN Reason: Itching Clopidogrel Bisulfate (Plavix) 75 mg PO DAILY [facility] Last Admin: 12/23/17 08:01 Dose: 75 mg Donepezil HCl (Aricept) 5 mg PO BEDTIME [facility] Last Admin: 12/23/17 20:01 Dose: 5 mg Enoxaparin Sodium (Lovenox) 30 mg SUBCUT Q24H [facility] Last Admin: 12/23/17 08:01 Dose: 30 mg Furosemide (Lasix) 20 mg PO 08,14 [facility] Last Admin: 12/23/17 13:24 Dose: 20 mg Levothyroxine Sodium (Levothyroxine) 112 mcg PO DAILY [facility] Last Admin: 12/23/17 08:13 Dose: 112 mcg Lisinopril (Prinivil) 5 mg PO DAILY [facility] Last Admin: 12/23/17 08:04 Dose: Not Given Potassium Chloride (Klor-Con 10) 10 meq PO DAILY [facility] Last Admin: 12/23/17 08:00 Dose: 10 meq Sertraline HCl (Zoloft) 50 mg PO BEDTIME [facility] Last Admin: 12/23/17 20:02 Dose: 50 mg Simvastatin (Zocor) 10 mg PO BEDTIME [facility] Last Admin: 12/23/17 20:04 Dose: 10 mg Sodium Chloride (Saline Flush) 10 ml FLUSH ASDIRECTED PRN PRN Reason: Keep Vein Open Last Admin: 12/23/17 08:00 Dose: 10 ml Discontinued Medications Potassium Chloride/Dextrose/Sod Cl (D5 1/2 Ns W/ 20 Meq/L Kcl) 1,000 mls @ 75 mls/hr IV ASDIRECTED JEWELL Levofloxacin/Dextrose 750 mg/ (Premix) 150 mls @ 100 mls/hr IV Q24H [facility] Levofloxacin (Levaquin) 750 mg PO Q48H [facility] - Exam General: Alert, Oriented, Cooperative Lungs: Clear to Auscultation, Normal Respiratory Effort. No: Crackles, Rales, Rhonchi Cardiovascular: Regular Rate, Regular Rhythm Extremities: No Pedal Edema - Problem List & Annotations (1) Acute ischemic stroke SNOMED Code(s): 098194274, 587786534 Code(s): I63.9 - CEREBRAL INFARCTION, UNSPECIFIED Status: Acute Current Visit: Yes Annotation/Comment:: Patient had initial presenting aphasia which was likely secondary to accumulation of small vascular infarcts. She had a second episode the day of MRI which resulted in left-sided weakness in the upper and lower extremity and a tingling sensation on the left face. The left facial symptoms resolved within 30 minutes and by the following day the left arm and leg weakness was gone. Family and patient him in struggling at home with the patient's continued weakness since her valve surgery. Recommend [facility] placement for the time being with rehabilitation with physical therapy and occupational therapy for stroke care. Patient is maximized medically currently with good blood pressure control, Plavix and aspirin for anticoagulation recommended for her heart valve, statin therapy, and discussed with family that we cannot predict whether or not these episodes will continue to recur. They would like to continue medical treatment and if her condition worsens comfort cares. (2) DVT prophylaxis SNOMED Code(s): 733109083, 070849223 Code(s): SKH8181 - Status: Acute Current Visit: Yes Annotation/Comment :: SCDs, Lovenox until discharge. (3) Pneumonia, aspiration SNOMED Code(s): 862837698 Code(s): J69.0 - PNEUMONITIS DUE TO INHALATION OF FOOD AND VOMIT Status: Acute Current Visit: Yes Annotation/Comment:: I do not believe the patient has pneumonia at this time or that her recent hospitalization was related to pneumonia. However I do believe that she is at risk for aspiration and would recommend swallow evaluation as an outpatient. - Problem List Review Problem List Initiated/Reviewed/Updated: Yes - Plan Plan:: Discharge to [facility]. Orders discharge summary already completed by the previous physician.
[2017-12-24] MEDS: Potassium Chloride 10 MEQ Tab.ER PO SCH (09:04)
[2017-12-24] MEDS: Enoxaparin 30 MG/0.3 ML Syringe SUBCUT SCH (09:04)
[2017-12-24] MEDS: Aspirin 81 MG Tab.EC PO SCH (09:04)
[2017-12-24] MEDS: Clopidogrel 75 MG Tab PO SCH (09:04)
[2017-12-24] MEDS: Levothyroxine 112 MCG Tab PO SCH (09:04)
[2017-12-24] MEDS: Furosemide 20 MG Tab PO SCH (09:04)
[2017-12-24] MEDS: Lisinopril 5 MG Tab PO SCH (09:05)
[2017-12-24] MEDS ORDERED: Tuberculin, PPD 5 Units/0.1 ML 1 ML MDV IDERM ONE (09:52)
== END 2017-12-24 10:28 | DRG 65 ==
LOC: FB.ED 19:15 → FB.MS 21:20 → UNDOADMIN 21:50
PROVIDERS: ADMIT Emergency Medicine; ATTEND Family Medicine
DX: J18.9 Pneumonia, unspecified organism (principal); R53.1 Weakness; I63.9 Cerebral infarction, unspecified; I50.42 Chronic combined systolic (congestive) and diastolic (congestive) heart failure; Z91.09 Other allergy status, other than to drugs and biological substances; G81.94 Hemiplegia, unspecified affecting left nondominant side; R47.01 Aphasia; F01.50 Vascular dementia, unspecified severity, without behavioral disturbance, psychotic disturbance, mood disturbance, and anxiety; I11.0 Hypertensive heart disease with heart failure; Z66 Do not resuscitate; Z95.4 Presence of other heart-valve replacement; I27.20 Pulmonary hypertension, unspecified; E78.5 Hyperlipidemia, unspecified; E03.9 Hypothyroidism, unspecified; K21.9 Gastro-esophageal reflux disease without esophagitis; M19.90 Unspecified osteoarthritis, unspecified site; R32 Unspecified urinary incontinence; I65.29 Occlusion and stenosis of unspecified carotid artery; F32.9 Major depressive disorder, single episode, unspecified; J44.9 Chronic obstructive pulmonary disease, unspecified; H54.7 Unspecified visual loss; H91.90 Unspecified hearing loss, unspecified ear; Z88.0 Allergy status to penicillin; Z88.8 Allergy status to other drugs, medicaments and biological substances; Z91.040 Latex allergy status; Z79.899 Other long term (current) drug therapy; Z79.82 Long term (current) use of aspirin; Z79.02 Long term (current) use of antithrombotics/antiplatelets
CPT/HCPCS: 36415; 70450; 70551; 71045; 80048; 82962; 85025; 86140; 86580; 94150; 96374; 97110-GP; 97116-GP; 97162-GP; 97165-GO; 97530-GO; 97530-GP; 97535-GO; 97542-GO; 99285; A9270-GY; J1650; J1956; J3480; J7050

== ENCOUNTER 2018-03-05 10:08 | Emergency (ER) | payer MEDICARE ==
--- NOTE | 2018-03-05 11:02 | EDM.PDOC ---
ED HPI GENERAL MEDICAL PROBLEM - General Chief Complaint: Eye Problems Stated Complaint: RED LEFT EYE Time Seen by Provider: 03/05/18 10:30 Source of Information: Reports: Patient, Family - History of Present Illness INITIAL COMMENTS - FREE TEXT/NARRATIVE: Awoke with reddened left sclera this morning. Denies pain or visual disturbance. Denies injury. Currently taking Plavix and Aspirin. Onset: Today - Related Data Allergies Allergy/AdvReac Type Severity Reaction Status Date / Time amitriptyline Allergy Cannot Verified 09/21/17 19:35 Remember atorvastatin [From Lipitor] Allergy Numbness Verified 09/21/17 19:35 azithromycin [From Zithromax] Allergy Cannot Verified 09/21/17 19:35 Remember ciprofloxacin [From Cipro] Allergy Nausea Verified 09/21/17 19:35 latex Allergy Rash Verified 09/21/17 19:35 meclizine Allergy Dizziness Verified 09/21/17 19:35 Penicillins Allergy Hives Verified 09/21/17 19:35 Home Meds: Home Meds Furosemide [Lasix] 20 mg PO ,14 10/02/14 [History] Simvastatin [Zocor] 10 mg PO BEDTIME 10/02/14 [History] Aspirin [Halfprin] 81 mg PO DAILY 07/30/17 [History] Cetirizine [ZyrTEC] 10 mg PO DAILY PRN 07/30/17 [History] Levothyroxine 112 mcg PO DAILY 07/30/17 [History] Sertraline HCl 50 mg PO BEDTIME 07/30/17 [History] Hydrocodone/Acetaminophen [Hydrocodon-Acetaminophen 5-325] 1 each PO Q6H PRN 03/02 [History] Clopidogrel [Plavix] 75 mg PO DAILY #30 tablet 11/18/17 [Rx] Potassium Chloride 10 meq PO DAILY #30 tablet.er 12/19/17 [Rx] Donepezil [Aricept] 5 mg PO BEDTIME 12/21/17 [History] Lisinopril 5 mg PO DAILY #0 12/23/17 [Rx] Past Medical History HEENT History: Reports: Hard of Hearing, Impaired Vision, Other (See Below) Other HEENT History: dentures Cardiovascular History: Reports: Heart Failure, Heart Murmur, High Cholesterol, Hypertension, Pulmonary Hypertension, Other (See Below) Other Cardiovascular History: edema, aortic stenosis, light headedness, cardiomegaly, carotid artery stenosis, aortic stenosis, transcatheter aortic valve replacement Respiratory History: Reports: COPD, Other (See Below) Other Respiratory History: allergic rhinitis Gastrointestinal History: Reports: Gastritis, GERD, Other (See Below) Other Gastrointestinal History: gastroduodenitis Genitourinary History: Reports: Urinary Incontinence, Other (See Below) Other Genitourinary History: BLADDER 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: Musculoskeletal History: Reports: Arthritis, Osteoarthritis, Other (See Below) Other Musculoskeletal History: impaired functional mobility, balance, gait, and endurance; leg cramps Neurological History: Reports: Other (See Below) Other Neuro History: Meniere's vertigo Psychiatric History: Reports: Dementia, Depression, Other (See Below) Other Psychiatric History: gradual onset memory impairment; hypersomnolence disorder, vascular dementia without behavioral disturbance Endocrine/Metabolic History: Reports: Hypothyroidism, Obesity/BMI 30+ Other Endocrine/Metabolic History: THYROID PROBLEM NOT SURE IF HYPO OR HYPER Dermatologic History: Reports: Seborrheic Dermatitis - Infectious Disease History Infectious Disease History: Reports: Chicken Pox - Past Surgical History Other Cardiovascular Surgeries/Procedures: valve replaced GI Surgical History: Reports: Cholecystectomy Female Surgical History: Reports: Hysterectomy Social & Family History - Family History Family Medical History: Noncontributory - Caffeine Use Caffeine Use: Reports: Coffee ED ROS GENERAL - Review of Systems Review Of Systems: ROS reveals no pertinent complaints other than HPI. ED EXAM GENERAL W FULL EYE - Physical Exam Exam: See Below Exam Limited By: No Limitations General Appearance: Alert, WD/WN, No Apparent Distress Eye Exam: Bilateral Eye: EOMI, PERRL Eyelids: Bilateral: Normal Appearance Conjunctiva & Sclera: Left: Subconjuctival Hemorrhage Extraocular Movements: Bilateral: Intact Ears: Normal External Exam Nose: Normal Inspection Throat/Mouth: No Airway Compromise Head: Atraumatic, Normocephalic Neurological: Alert Course - Orders/Labs/Meds Labs: Laboratory Tests 03/05/18 03/05/18 Range/Units 10:24 10:24 WBC 9.9 (4.5-12.0) X10-3/uL RBC 4.68 (3.23-5.20) x10(6)uL Hgb 12.4 (11.5-15.5) g/dL Hct 38.9 (30.0-51.3) % MCV 83.2 (80-96) fL MCH 26.6 L (27.7-33.6) pg MCHC 32.0 L (32.2-35.4) g/dL RDW 16.0 H (11.5-15.5) % Plt Count 222 (125-369) X10(3)uL MPV 7.4 (7.4-10.4) fL Neut % (Auto) 60.5 (46-82) % Lymph % (Auto) 25.3 (13-37) % [place] % (Auto) 6.9 (4-12) % Eos % (Auto) 5 (1.0-5.0) % Baso % (Auto) 3 H (0-2) % Neut # (Auto) 5.9 (1.6-8.3) # Lymph # (Auto) 2.5 (0.6-5.0) # Evans # (Auto) 0.7 (0.0-1.3) # Eos # (Auto) 0.5 (0.0-0.8) # Baso # (Auto) 0.3 H (0.0-0.2) # PT 9.4 (8.7-11.1) INR 0.97 (0.89-1.13) Departure - Departure Time of Disposition: 11:01 Disposition: Home, Self-Care 01 Condition: Good Clinical Impression: Subconjunctival hemorrhage of left eye - Discharge Information *PRESCRIPTION DRUG MONITORING PROGRAM REVIEWED*: No *COPY OF PRESCRIPTION DRUG MONITORING REPORT IN PATIENT BYRON: Not Applicable Instructions: Subconjunctival Hemorrhage Referrals: Nakul Granados MD [Primary Care Provider] - Forms: ED Department Discharge Additional Instructions: Rest, avoid rubbing the eye. Follow up with your doctor in 2-3 days.
[2018-03-05 21:09] VITALS: BP 143/75
== END 2018-03-05 11:10 | disposition home or self-care (01) ==
LOC: FB.ED 10:08
DX: H11.32 Conjunctival hemorrhage, left eye (principal); I11.0 Hypertensive heart disease with heart failure; I50.9 Heart failure, unspecified; J44.9 Chronic obstructive pulmonary disease, unspecified; Z91.040 Latex allergy status; Z88.1 Allergy status to other antibiotic agents; Z88.8 Allergy status to other drugs, medicaments and biological substances; Z79.82 Long term (current) use of aspirin; Z79.899 Other long term (current) drug therapy
CPT/HCPCS: 36415; 85025; 85610; 99283

== ENCOUNTER 2019-02-02 03:30 | Emergency (ER) | payer MEDICARE ==
--- NOTE | 2019-02-02 04:04 | EDM.PDOC ---
ED HPI GENERAL MEDICAL PROBLEM - General Chief Complaint: Cardiovascular Problem Stated Complaint: CHEST PAIN Time Seen by Provider: 02/02/19 04:01 Source of Information: Reports: Patient, [place] Records History Limitations: Reports: No Limitations - History of Present Illness INITIAL COMMENTS - FREE TEXT/NARRATIVE: Presents with substernal chest soreness, onset @0300, associated with SOB. Symptoms have now resolved. Prior h/o NSTEMI. Onset: Today Onset Date: 02/02/19 Onset Time: 03:00 Location: Reports: Chest Quality: Reports: Ache Severity: Moderate Improves with: Reports: None Worsens with: Reports: None Associated Symptoms: Reports: Shortness of Breath - Related Data Allergies Allergy/AdvReac Type Severity Reaction Status Date / Time amitriptyline Allergy Cannot Verified 02/02/19 04:01 Remember atorvastatin [From Lipitor] Allergy Numbness Verified 02/02/19 04:01 azithromycin [From Zithromax] Allergy Cannot Verified 02/02/19 04:01 Remember ciprofloxacin [From Cipro] Allergy Nausea Verified 02/02/19 04:01 latex Allergy Rash Verified 02/02/19 04:01 meclizine Allergy Dizziness Verified 02/02/19 04:01 Penicillins Allergy Hives Verified 02/02/19 04:01 Home Meds: Home Meds Simvastatin [Zocor] 10 mg PO BEDTIME 10/02/14 [History] Aspirin [Halfprin] 81 mg PO DAILY 07/30/17 [History] Cetirizine [ZyrTEC] 10 mg PO DAILY PRN 07/30/17 [History] Sertraline HCl 50 mg PO DAILY 07/30/17 [History] Lisinopril 5 mg PO DAILY 08/07/18 [History] Acetaminophen [Tylenol] 325 mg PO Q4H PRN 02/02/19 [History] Donepezil HCl [Aricept] 10 mg PO BEDTIME 02/02/19 [History] amLODIPine [Norvasc] 5 mg PO DAILY 02/02/19 [History] Past Medical History HEENT History: Reports: Hard of Hearing, Impaired Vision, Other (See Below) Other HEENT History: dentures Cardiovascular History: Reports: CAD, Heart Failure, Heart Murmur, High Cholesterol, Hypertension, MD, Pulmonary Hypertension, Other (See Below) Other Cardiovascular History: edema, aortic stenosis, light headedness, cardiomegaly, carotid artery stenosis, aortic stenosis, transcatheter aortic valve replacement Respiratory History: Reports: COPD, Other (See Below) Other Respiratory History: allergic rhinitis Gastrointestinal History: Reports: Gastritis, GERD, Other (See Below) Other Gastrointestinal History: gastroduodenitis Genitourinary History: Reports: Urinary Incontinence, Other (See Below) Other Genitourinary History: BLADDER SX 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: Musculoskeletal History: Reports: Arthritis, Osteoarthritis, Other (See Below) Other Musculoskeletal History: impaired functional mobility, balance, gait, and endurance; leg cramps Neurological History: Reports: CVA, Other (See Below) Other Neuro History: Meniere's vertigo Psychiatric History: Reports: Dementia, Depression, Other (See Below) Other Psychiatric History: gradual onset memory impairment; hypersomnolence disorder, vascular dementia without behavioral disturbance Endocrine/Metabolic History: Reports: Hypothyroidism, Obesity/BMI 30+ Other Endocrine/Metabolic History: THYROID PROBLEM NOT SURE IF HYPO OR HYPER Dermatologic History: Reports: Seborrheic Dermatitis - Infectious Disease History Infectious Disease History: Reports: Chicken Pox - Past Surgical History Other Cardiovascular Surgeries/Procedures: valve replaced GI Surgical History: Reports: Cholecystectomy Female Surgical History: Reports: Hysterectomy Social & Family History - Family History Family Medical History: Noncontributory - Tobacco Use Tobacco Use Within Last Twelve Months: No - Caffeine Use Caffeine Use: Reports: Coffee ED ROS GENERAL - Review of Systems Review Of Systems: ROS reveals no pertinent complaints other than HPI. ED EXAM, GENERAL - Physical Exam Exam: See Below Exam Limited By: No Limitations General Appearance: Alert, WD/WN, No Apparent Distress Ears: Normal External Exam Nose: Normal Inspection Throat/Mouth: No Airway Compromise Head: Atraumatic, Normocephalic Neck: Normal Inspection, Full Range of Motion Respiratory/Chest: No Respiratory Distress, Lungs Clear, Normal Breath Sounds Cardiovascular: Regular Rate, Rhythm, No Murmur GI/Abdominal: Soft, Non-Tender, No Distention Extremities: Normal Range of Motion Neurological: Alert, Normal Cognition, No Motor/Sensory Deficits Psychiatric: Normal Affect, Normal Mood Skin Exam: Warm, Dry, Intact EKG INTERPRETATION EKG Date: 02/02/19 Time: 03:42 Rhythm: NSR Rate (Beats/Min): 74 [place]: Normal P-Wave: Present QRS: Normal ST-T: Other (borderline repolarization abnormality) QT: Prolonged Comparison: No Change (08/07/18) Course - Vital Signs Last Recorded V/S: Last Vital Signs Temp 35.8 C 02/02/19 03:30 Pulse 77 02/02/19 06:45 Resp 16 02/02/19 06:45 BP 166/78 H 02/02/19 06:45 Pulse Ox 99 02/02/19 06:45 - Orders/Labs/Meds Orders: Active Orders 24 hr Category Date Time Status EKG Documentation Completion [RC] ASDIRECTED Care 02/02/19 04:00 Active CXR [Chest 1V Frontal] [CR] Stat Exams 02/02/19 04:00 Taken Sodium Chloride 0.9% [Saline Flush] Med 02/02/19 04:05 Active 10 ml FLUSH ASDIRECTED PRN Saline Lock Insert [OM.PC] Routine Oth 02/02/19 04:05 Ordered EKG 12 Lead [EK] Stat Ther 02/02/19 04:00 Ordered Medication Orders Sodium Chloride (Saline Flush) 10 ml FLUSH ASDIRECTED PRN PRN Reason: Keep Vein Open Last Admin: 02/02/19 04:45 Dose: 10 ml Labs: Laboratory Tests 02/02/19 02/02/19 02/02/19 Range/Units 04:08 04:08 04:08 WBC 8.2 (4.5-12.0) X10-3/uL RBC 4.46 (3.23-5.20) x10(6)uL Hgb 13.0 (11.5-15.5) g/dL Hct 39.2 (30.0-51.3) % MCV 87.8 (80-96) fL MCH 29.2 (27.7-33.6) pg MCHC 33.3 (32.2-35.4) g/dL RDW 15.4 (11.5-15.5) % Plt Count 171 (125-369) X10(3)uL MPV 7.6 (7.4-10.4) fL Neut % (Auto) 55.9 (46-82) % Lymph % (Auto) 29.1 (13-37) % [place] % (Auto) 10.1 (4-12) % Eos % (Auto) 4 (1.0-5.0) % Baso % (Auto) 1 (0-2) % Neut # (Auto) 4.6 (1.6-8.3) # Lymph # (Auto) 2.4 (0.6-5.0) # [place] # (Auto) 0.8 (0.0-1.3) # Eos # (Auto) 0.3 (0.0-0.8) # Baso # (Auto) 0.1 (0.0-0.2) # PT 9.4 (8.7-11.1) INR 0.97 (0.89-1.13) APTT 26.7 (24.4-33.2) SECONDS Sodium 143 (135-145) mmol/L Potassium 3.6 (3.5-5.3) mmol/L Chloride 105 (100-110) mmol/L Carbon Dioxide 30 (21-32) mmol/L BUN 17 (7-18) mg/dL Creatinine 1.0 (0.55-1.02) mg/dL Est Cr Clr Drug Dosing TNP Estimated GFR (MDRD) 52 L (>60) BUN/Creatinine Ratio 17.0 (9-20) Glucose 95 (80-116) mg/dL Calcium 9.2 (8.6-10.2) mg/dL Total Bilirubin 0.6 (0.1-1.3) mg/dL AST 17 D (5-25) IU/L ALT 18 D (12-36) U/L Alkaline Phosphatase 68 (56-112) IU/L Troponin I (<0.017-0.056) ng/mL Total Protein 6.7 (6.0-8.0) g/dL Albumin 3.6 (2.9-4.5) g/dL Globulin 3.1 g/dL Albumin/Globulin Ratio 1.2 02/02/19 02/02/19 Range/Units 04:08 07:00 WBC (4.5-12.0) X10-3/uL RBC (3.23-5.20) x10(6)uL Hgb (11.5-15.5) g/dL Hct (30.0-51.3) % MCV (80-96) fL MCH (27.7-33.6) pg MCHC (32.2-35.4) g/dL RDW (11.5-15.5) % Plt Count (125-369) X10(3)uL MPV (7.4-10.4) fL Neut % (Auto) (46-82) % Lymph % (Auto) (13-37) % [place] % (Auto) (4-12) % Eos % (Auto) (1.0-5.0) % Baso % (Auto) (0-2) % Neut # (Auto) (1.6-8.3) # Lymph # (Auto) (0.6-5.0) # [place] # (Auto) (0.0-1.3) # Eos # (Auto) (0.0-0.8) # Baso # (Auto) (0.0-0.2) # PT (8.7-11.1) INR (0.89-1.13) APTT (24.4-33.2) SECONDS Sodium (135-145) mmol/L Potassium (3.5-5.3) mmol/L Chloride (100-110) mmol/L Carbon Dioxide (21-32) mmol/L BUN (7-18) mg/dL Creatinine (0.55-1.02) mg/dL Est Cr Clr Drug Dosing Estimated GFR (MDRD) (>60) BUN/Creatinine Ratio (9-20) Glucose (80-116) mg/dL Calcium (8.6-10.2) mg/dL Total Bilirubin (0.1-1.3) mg/dL AST (5-25) IU/L ALT (12-36) U/L Alkaline Phosphatase (56-112) IU/L Troponin I < 0.017 L < 0.017 L (<0.017-0.056) ng/mL Total Protein (6.0-8.0) g/dL Albumin (2.9-4.5) g/dL Globulin g/dL Albumin/Globulin Ratio Meds: Medications Generic Name Dose Route Start Last Admin Trade Name Freq PRN Reason Stop Dose Admin Sodium Chloride 10 ml 02/02/19 04:05 02/02/19 04:45 Saline Flush FLUSH 10 ml ASDIRECTED PRN Administration Keep Vein Open Discontinued Medications Generic Name Dose Route Start Last Admin Trade Name Freq PRN Reason Stop Dose Admin Aspirin 324 mg 02/02/19 04:08 02/02/19 04:30 Aspirin PO 02/02/19 04:09 324 mg ONETIME ONE Administration - Radiology Interpretation Free Text/Narrative:: CXR: No acute process - Re-Assessments/Exams Free Text/Narrative Re-Assessment/Exam: 02/02/19 07:51 No recurrence of chest pain. Departure - Departure Time of Disposition: 07:52 Disposition: DC/Tfer to SNF 03 Reason for Transfer *Q: Other Condition: Good Clinical Impression: Chest pain Qualifiers: Chest pain type: unspecified Qualified Code(s): R07.9 - Chest pain, unspecified Referrals: Nakul Granados MD [Primary Care Provider] - Forms: ED Department Discharge - My Orders Last 24 Hours: My Active Orders 02/02/19 04:00 EKG Documentation Completion [RC] ASDIRECTED CXR [Chest 1V Frontal] [CR] Stat EKG 12 Lead [EK] Stat 02/02/19 04:05 Sodium Chloride 0.9% [Saline Flush] 10 ml FLUSH ASDIRECTED PRN Saline Lock Insert [OM.PC] Routine - Assessment/Plan Last 24 Hours: My Active Orders 02/02/19 04:00 EKG Documentation Completion [RC] ASDIRECTED CXR [Chest 1V Frontal] [CR] Stat EKG 12 Lead [EK] Stat 02/02/19 04:05 Sodium Chloride 0.9% [Saline Flush] 10 ml FLUSH ASDIRECTED PRN Saline Lock Insert [OM.PC] Routine
[2019-02-02] MEDS ORDERED: Sodium Chloride 0.9% 10 ML Syringe FLUSH PRN (04:05)
[2019-02-02] MEDS ORDERED: Aspirin 81 MG Tab.Chew PO ONE (04:08)
[2019-02-02 08:30] VITALS: BP 159/70
== END 2019-02-02 08:30 | disposition home or self-care (01) ==
LOC: FB.ED 03:31
DX: R07.89 Other chest pain (principal); I11.0 Hypertensive heart disease with heart failure; I50.9 Heart failure, unspecified; E03.9 Hypothyroidism, unspecified; K21.9 Gastro-esophageal reflux disease without esophagitis; I25.10 Atherosclerotic heart disease of native coronary artery without angina pectoris; Z91.040 Latex allergy status; Z88.1 Allergy status to other antibiotic agents; Z88.8 Allergy status to other drugs, medicaments and biological substances; Z79.82 Long term (current) use of aspirin; Z79.899 Other long term (current) drug therapy; Z88.0 Allergy status to penicillin; Z86.73 Personal history of transient ischemic attack (TIA), and cerebral infarction without residual deficits
CPT/HCPCS: 36415; 71045; 80053; 84484; 85025; 85610; 85730; 93005; 99285-25; A9270-GY